=== PATIENT | male | born 1940 | race Caucasian/White ===

== ENCOUNTER 2019-09-01 21:08 | Emergency (ER) | payer OTHER ==
[2019-09-01] MEDS ORDERED: NA CHLORIDE 0.9% 1,000 ML ONE (22:19)
[2019-09-01 22:41] LABS: Absolute Lymphocytes (CBC) 0.9 K/uL (0.7-4.9); Basophils % 0.3 % (0-1.3); Hematocrit 33.4 % (39.6-49.0); Lymphocytes % 6.7 % (15.3-44.8); MPV 9.4 fL (7.6-11.3); RBC Red Blood Cell Count 3.69 M/uL (4.33-5.43)
[2019-09-01] MEDS ORDERED: FENTANYL CITR 100 MCG/2 ML ONE (22:45)
[2019-09-01 23:02] LABS: Albumin 2.6 g/dL (3.4-5.0); Bilirubin Direct 0.2 mg/dL (0-0.2); Bilirubin Total 0.3 mg/dL (0.2-1.0); Potassium 4.7 mmol/L (3.5-5.1); Protein, Total 6.4 g/dL (6.4-8.2)
[2019-09-02] MEDS ORDERED: NA CHLORIDE 0.9% 1,000 ML ONE (00:28)
--- NOTE | 2019-09-02 01:12 | EDPHYS ---
Physician Documentation [facility] Name: Evin Saba Age: 79 yrs Sex: Male : 1940 Arrival Date: 09/01/2019 Time: 21:09 Bed 5 Private MD: ED Physician Volodymyr Fernandez HPI: 09/01 22:36 This 79 yrs old Male presents to ER via Wheelchair with complaints of pm1 Diarrhea. 22:36 The patient presents to the emergency department with diarrhea, 4-5 times per day. pm1 Onset: The symptoms/episode began/occurred 3 day(s) ago. Possible causes: unknown. The symptoms are aggravated by nothing. The symptoms are alleviated by nothing. Associated signs and symptoms: Pertinent positives: abdominal pain, suprapubic area, Pertinent negatives: dysuria, fever. Historical: - Allergies: 21:42 No Known Allergies; rv - PMHx: 21:42 Hypertension; Diabetes - NIDDM; rv - PSHx: 21:42 cardiac stents; rv - Immunization history:: Adult Immunizations up to date, Flu vaccine is up to date. - Social history:: Smoking status: Patient/guardian denies using tobacco, the patient reports quitting approximately 10 years ago. - Ebola Screening: : No symptoms or risks identified at this time. ROS: 22:36 Constitutional: Negative for fever, chills, and weight loss, Eyes: Negative for injury, pm1 pain, redness, and discharge, ENT: Negative for injury, pain, and discharge, Neck: Negative for injury, pain, and swelling, Cardiovascular: Negative for chest pain, palpitations, and edema, Respiratory: Negative for shortness of breath, cough, wheezing, and pleuritic chest pain. 22:36 Back: Negative for injury and pain, : Negative for injury, bleeding, discharge, and swelling, MS/Extremity: Negative for injury and deformity, Skin: Negative for injury, rash, and discoloration, Neuro: Negative for headache, weakness, numbness, tingling, and seizure. 22:36 Abdomen/GI: Positive for abdominal pain, diarrhea, of the suprapubic area, Negative for nausea, vomiting, constipation. Exam: 22:36 Constitutional: This is a well developed, well nourished patient who is awake, alert, pm1 and in no acute distress. Head/Face: Normocephalic, atraumatic. Neck: Trachea midline, no thyromegaly or masses palpated, and no cervical lymphadenopathy. Supple, full range of motion without nuchal rigidity, or vertebral point tenderness. No Meningismus. Chest/axilla: Normal chest wall appearance and motion. Nontender with no deformity. No lesions are appreciated. Cardiovascular: Regular rate and rhythm with a normal S1 and S2. No gallops, murmurs, or rubs. Normal PMI, no JVD. No pulse deficits. Respiratory: Lungs have equal breath sounds bilaterally, clear to auscultation and percussion. No rales, rhonchi or wheezes noted. No increased work of breathing, no retractions or nasal flaring. 22:36 Back: No spinal tenderness. No costovertebral tenderness. Full range of motion. Skin: Warm, dry with normal turgor. Normal color with no rashes, no lesions, and no evidence of cellulitis. 22:36 Abdomen/GI: Inspection: abdomen appears normal, Bowel sounds: normal, Palpation: soft, mild abdominal tenderness, in the suprapubic area, mass, is not appreciated, rebound tenderness, is not appreciated. 22:36 Musculoskeletal/extremity: Extremities: all appear grossly normal, with no appreciated pain with palpation, ROM: no acute changes, Circulation is intact in all extremities. Vital Signs: 21:42 BP 135 / 42; Pulse 74; Resp 17; Temp 98.2; Pulse Ox 97% ; Weight 108.86 kg; Height 5 rv ft. 10 in. (177.80 cm); 22:30 BP 137 / 51; Pulse 63; Resp 18; Pulse Ox 97% on R/A; ea 23:18 BP 134 / 46; Pulse 66; Resp 18; Pulse Ox 97% on R/A; ea 09/02 00:05 BP 138 / 55; Pulse 62; Pulse Ox 100% on R/A; ak1 00:10 BP 149 / 61; Pulse 69; Pulse Ox 100% on R/A; ak1 00:16 BP 120 / 44 Supine; Pulse 62; Pulse Ox 95% ; ak1 01:15 BP 141 / 57; Pulse 63; Resp 18; Pulse Ox 100% on R/A; Pain 0/10; lp1 09/01 21:42 Body Mass Index 34.44 (108.86 kg, 177.80 cm) rv MDM: 09/01 22:03 Patient medically screened. pm1 22:04 Data reviewed: vital signs. Data interpreted: Pulse oximetry: on room air is 97 %. pm1 Interpretation: normal. 09/02 00:26 Counseling: I had a detailed discussion with the patient and/or guardian regarding: the pm1 historical points, exam findings, and any diagnostic results supporting the discharge/admit diagnosis, lab results, radiology results, the need for outpatient follow up, to return to the emergency department if symptoms worsen or persist or if there are any questions or concerns that arise at home. 00:26 Special discussion: I discussed with the patient the need to follow-up with the pm1 PCP/specialist for the noted incidental finding on X-ray/CT scanning. adrenal adenoma and recommendations by radiologist. 00:26 ED course: Offered admission to the patient for dehydration but patient prefers to go pm1 home. Patient feels better post IV infusion. Will give additional bolus of fluid for 2 liters total infused. Patient is not vomiting. 09/01 22:12 Order name: Basic Metabolic Panel; Complete Time: 23:17 pm1 09/01 22:12 Order name: CBC with Diff; Complete Time: 22:53 pm1 09/01 22:12 Order name: Creatinine for Radiology; Complete Time: 22:53 pm1 09/01 22:12 Order name: Hepatic Function; Complete Time: 23:17 pm1 09/01 22:12 Order name: Lipase; Complete Time: 23:17 pm1 09/01 22:12 Order name: IV Saline Lock; Complete Time: 22:28 pm1 09/01 22:12 Order name: Labs collected and sent; Complete Time: 22:34 pm1 09/01 22:12 Order name: CT Abd/Pelvis - IV Contrast Only pm1 Administered Medications: 09/01 22:28 Drug: NS 0.9% 1000 ml Route: IV; Rate: 1000 ml; Site: right antecubital; ea 23:34 Follow up: Response: No adverse reaction; IV Status: Completed infusion; IV Intake: ea 1000ml 22:47 Drug: fentaNYL (PF) 25 mcg Route: IVP; Site: right antecubital; ea 23:33 Follow up: Response: No adverse reaction; Pain is decreased ea 09/02 00:30 Drug: NS 0.9% 1000 ml Route: IV; Rate: 1000 ml; Site: right antecubital; ak1 01:21 Follow up: IV Status: Completed infusion; IV Intake: 1000ml lp1 Disposition: 03:43 Co-signature as Attending Physician, Volodymyr Fernandez MD I agree with the assessment and tw4 plan of care. Disposition: 09/02/19 01:12 Discharged to Home. Impression: Diarrhea, unspecified, Dehydration. - Condition is Stable. - Discharge Instructions: Food Choices to Help Relieve Diarrhea, Adult, Dehydration, Elderly, Diarrhea, Adult, Viral Gastroenteritis, Adult, Rehydration, Elderly. - Prescriptions for Bentyl 20 mg Oral Tablet - take 1 tablet by ORAL route every 6 hours As needed; 20 tablet. - Medication Reconciliation Form, Thank You Letter, Antibiotic Education, Prescription Opioid Use form. - Follow up: Emergency Department; When: As needed; Reason: Worsening of condition. Follow up: Private Physician; When: 2 - 3 days; Reason: Recheck today's complaints, Continuance of care, Re-evaluation by your physician. - Problem is new. - Symptoms have improved. Signatures: Dispatcher [employer] EDMS Heydi Wagner RN RN lp1 Aida Perdomo RN RN ak1 Sam Gallegos, JAVA SECURITY ARCHITECT JAVA SECURITY ARCHITECT pm1 Shi Sanchez, RN Volodymyr Chun ea, MD MD tw4 Jaxon Hull RN RN rv Corrections: (The following items were deleted from the chart) 01:12 01:12 09/02/2019 01:12 Discharged to Home. Impression: Diarrhea, unspecified. Condition pm1 is Stable. Forms are Medication Reconciliation Form, Thank You Letter, Antibiotic Education, Prescription Opioid Use. Follow up: Emergency Department; When: As needed; Reason: Worsening of condition. Follow up: Private Physician; When: 2 - 3 days; Reason: Recheck today's complaints, Continuance of care, Re-evaluation by your physician. Problem is new. Symptoms have improved. pm1 01:21 01:12 09/02/2019 01:12 Discharged to Home. Impression: Diarrhea, unspecified; lp1 Dehydration. Condition is Stable. Discharge Instructions: Food Choices to Help Relieve Diarrhea, Adult, Diarrhea, Adult, Viral Gastroenteritis, Adult, Dehydration, Elderly, Rehydration, Elderly. Prescriptions for Bentyl 20 mg Oral Tablet - take 1 tablet by ORAL route every 6 hours As needed; 20 tablet. and Forms are Medication Reconciliation Form, Thank You Letter, Antibiotic Education, Prescription Opioid Use. Follow up: Emergency Department; When: As needed; Reason: Worsening of condition. Follow up: Private Physician; When: 2 - 3 days; Reason: Recheck today's complaints, Continuance of care, Re-evaluation by your physician. Problem is new. Symptoms have improved. pm1
--- NOTE | 2019-09-02 01:12 | ER ---
Nurse's Notes [facility] Name: Evin Saba Age: 79 yrs Sex: Male : 1940 Arrival Date: 09/01/2019 Time: 21:09 Bed 5 Private MD: Diagnosis: Diarrhea, unspecified;Dehydration Presentation: 09/01 21:39 Presenting complaint: Patient states: lbm for three days, having 4-5 bouts per day. rv feeling week. still able to eat and drink without nausea and vomiting. denies any fever. no new prescription aside from getting a flu shot before the LBM started. Transition of care: patient was not received from another setting of care. Onset of symptoms was August 30, 2019 at 08:00. Risk Assessment: Do you want to hurt yourself or someone else? Patient reports no desire to harm self or others. Initial Sepsis Screen: Does the patient meet any 2 criteria? No. Patient's initial sepsis screen is negative. Does the patient have a suspected source of infection? No. Patient's initial sepsis screen is negative. Care prior to arrival: None. 21:39 Method Of Arrival: Wheelchair rv 21:39 Acuity: FELICIA 3 rv Historical: - Allergies: 21:42 No Known Allergies; rv - PMHx: 21:42 Hypertension; Diabetes - NIDDM; rv - PSHx: 21:42 cardiac stents; rv - Immunization history:: Adult Immunizations up to date, Flu vaccine is up to date. - Social history:: Smoking status: Patient/guardian denies using tobacco, the patient reports quitting approximately 10 years ago. - Ebola Screening: : No symptoms or risks identified at this time. Screenin:57 Abuse screen: Denies threats or abuse. Nutritional screening: No deficits noted. ea Tuberculosis screening: No symptoms or risk factors identified. Fall Risk None identified. Assessment: 22:40 Reassessment: bedside commode placed for pt to use for stool sample. ak1 22:56 General: Appears uncomfortable, Behavior is calm, cooperative, appropriate for age. ea Pain: Complains of pain in abdomen. Neuro: Level of Consciousness is awake, alert, obeys commands, Oriented to person, place, time, situation. Cardiovascular: Patient's skin is warm and dry. Respiratory: Airway is patent Respiratory effort is even, unlabored, Respiratory pattern is regular, symmetrical. GI: Abdomen is non-distended. Derm: Skin is dry, Skin is pale, Skin temperature is warm. 22:59 Reassessment: Patient and/or family updated on plan of care and expected duration. Pain ea level reassessed. Patient is alert, oriented x 3, equal unlabored respirations, skin warm/dry/pink. Pt taken to CT. 23:03 Reassessment: pt taken to CT. ak1 23:12 Reassessment: Patient and/or family updated on plan of care and expected duration. Pain ea level reassessed. Patient is alert, oriented x 3, equal unlabored respirations, skin warm/dry/pink. Pt returned from CT. 23:35 Reassessment: Patient and/or family updated on plan of care and expected duration. Pain ea level reassessed. Patient is alert, oriented x 3, equal unlabored respirations, skin warm/dry/pink. Provider at bedside updating pt on plan of care. Vital Signs: 21:42 BP 135 / 42; Pulse 74; Resp 17; Temp 98.2; Pulse Ox 97% ; Weight 108.86 kg; Height 5 rv ft. 10 in. (177.80 cm); 22:30 BP 137 / 51; Pulse 63; Resp 18; Pulse Ox 97% on R/A; ea 23:18 BP 134 / 46; Pulse 66; Resp 18; Pulse Ox 97% on R/A; ea 09/02 00:05 BP 138 / 55; Pulse 62; Pulse Ox 100% on R/A; ak1 00:10 BP 149 / 61; Pulse 69; Pulse Ox 100% on R/A; ak1 00:16 BP 120 / 44 Supine; Pulse 62; Pulse Ox 95% ; ak1 01:15 BP 141 / 57; Pulse 63; Resp 18; Pulse Ox 100% on R/A; Pain 0/10; lp1 09/01 21:42 Body Mass Index 34.44 (108.86 kg, 177.80 cm) rv ED Course: 09/01 21:09 Patient arrived in ED. ag3 21:40 Triage completed. rv 21:53 Sam Gallegos NP is PHCP. pm1 21:53 Volodymyr Fernandez MD is Attending Physician. pm1 21:57 Aida Perdomo, ESTER is Primary Nurse. ak1 22:18 Radiology exam delayed due to lab results not completed at this time. 2 22:27 Inserted saline lock: 20 gauge in right antecubital area, using aseptic technique. ea Blood collected. 22:57 Patient has correct armband on for positive identification. Bed in low position. Call ea light in reach. Side rails up X2. Adult w/ patient. 22:57 Arm band placed on right wrist. Patient placed in an exam room, on a stretcher, on ea pulse oximetry. 23:13 CT completed. Patient tolerated procedure well. Patient moved back from CT. 2 23:17 CT Abd/Pelvis - IV Contrast Only In Process Unspecified. EDTX 09/02 01:21 No provider procedures requiring assistance completed. IV discontinued, No lp1 redness/swelling at site. Pressure dressing applied. Administered Medications: 09/01 22:28 Drug: NS 0.9% 1000 ml Route: IV; Rate: 1000 ml; Site: right antecubital; ea 23:34 Follow up: Response: No adverse reaction; IV Status: Completed infusion; IV Intake: ea 1000ml 22:47 Drug: fentaNYL (PF) 25 mcg Route: IVP; Site: right antecubital; ea 23:33 Follow up: Response: No adverse reaction; Pain is decreased ea 09/02 00:30 Drug: NS 0.9% 1000 ml Route: IV; Rate: 1000 ml; Site: right antecubital; ak1 01:21 Follow up: IV Status: Completed infusion; IV Intake: 1000ml lp1 Intake: 09/01 23:34 IV: 1000ml; Total: 1000ml. ea 09/02 01:21 IV: 1000ml; Total: 2000ml. lp1 Outcome: 00:17 Condition: improved ak1 01:12 Discharge ordered by . pm1 01:21 Discharged to home via wheelchair, with family. lp1 01:21 Discharge instructions given to patient, Instructed on discharge instructions, follow up and referral plans. medication usage, Demonstrated understanding of instructions, follow-up care, medications, Prescriptions given X 1. 01:21 Patient left the ED. lp1 Signatures: Dispatcher [employer] EDTX Heydi Wagner RN RN lp1 Aida Perdomo RN RN ak1 Sam Gallegos, CONSULTANTS INTERN CONSULTANTS INTERN pm1 Tanisha Onofre 2 Shi Sanchez RN RN Jaxon Escamilla, RN RN navneet Sal, Jody ag3
[2019-09-02 01:28] VITALS: TEMP 98.2
[2019-09-02 01:34] VITALS: BP 141/57; O2SAT 100
--- NOTE | 2019-09-02 10:44 | RAD REPORT ---
EXAM DESCRIPTION: CT abdomen and pelvis with IV contrast CLINICAL HISTORY: 79-year-old male with abdominal pain, diarrhea and weakness TECHNIQUE: Axial CT imaging of the abdomen and pelvis was performed following the administration of intravenous contrast.. Sagittal and coronal reconstructed images were then performed. The CT stud y is performed according to ALARA (as low as reasonably achievable) or ALARA/IMAGE GENTLY, with autom atic adjustment of mA and/or kV according to patient size. Performed on: 09/01/2019 at 11:09 PM. COMPARISON: No prior studies were available for comparison. FINDINGS: Lung bases: The lung bases are clear. There is minimal bibasilar atelectasis and/or fibros is. Liver: The liver is normal in size and configuration. No focal hepatic abnormalities are identified. Liver attenuation is within normal limits. Spleen: The spleen is normal is size, configuration and attenuation. Gallbladder and bile duct: The gallbladder is surgically absent. There is no biliary ductal dilatat ion. Pancreas: The pancreas is grossly normal in size and configuration. Adrenal Glands: There is a 1.9 x 1.3 cm low density mass arising from the right adrenal gland measuri ng approximately 35 Hounsfield units. This likely represents an adrenal adenoma. The left adrenal gla nd is normal in size and configuration. Kidneys: The kidneys are normal in size and configuration. There is no evidence of hydronephrosis. Th ere is no evidence of nephrolithiasis. No definite solid or cystic renal mass lesions are identified. Stomach: The stomach is grossly normal. There is no definite hiatal hernia. Bowel: There is bowel wall thickening along the ascending colon as well as portions of the sigmoid co humberto. There is mild infiltration of the pericolonic fat adjacent to the ascending colon. Findings sugg est underlying colitis which may be infectious, inflammatory or ischemic in etiology. Appendix: There is no CT evidence of acute appendicitis. Free air: There is no evidence of free air. Free fluid: There is no evidence of free fluid. Vasculature: The aorta is normal in contour and demonstrates extensive atherosclerotic calcification. There are atherosclerotic calcifications along the common iliac arteries and major aortic branch ves sels. The aorta measures approximately 2.6 cm in maximum dimension. The inferior vena cava is grossly unremarkable. Lymphadenopathy: No pathologic lymphadenopathy is identified. Bladder: The bladder is moderately well distended and smooth in contour. Reproductive: The prostate gland is grossly within normal limits. Bones: There are remote postsurgical changes of the lumbar spine consistent with posterior decompress ion and fusion at L2-L3. A dorsal column stimulator is present as well. There are degenerative change s throughout the thoracolumbar spine. Left hip arthroplasty is present. Soft tissues: No focal soft tissue abnormalities are identified. IMPRESSION: 1. Bowel wall thickening along the ascending colon as well as portions of the sigmoid co humberto with associated pericolonic inflammation suggesting underlying colitis which may be infectious, i nflammatory or ischemic in etiology. 2. Remote cholecystectomy. 3. Small, low-density right adrenal mass likely representing an adrenal adenoma. Recommend one-year f ollow-up adrenal washout CT. If stable greater than or equal to one year, no further follow-up imagin g recommended. 4. Extensive atherosclerotic calcification along the abdominal aorta and major branch vessels. The ao rta measures approximately 2.6 cm in maximum dimension. Recommend follow-up imaging every five years. 5. Prior posterior fusion of L2-L3. Electronically signed by: Na Cook DO 09/01/2019 11:44 PM BROWNING PROCESSOR Due to temporary technical issues with the PACS/Fluency reporting system, reports are being signed by the in house radiologist as a courtesy to ensure prompt reporting. The interpreting radiologist is f ully responsible for the content of the report.
== END 2019-09-02 01:21 | disposition home or self-care (01) ==
LOC: ER 21:08
DX: E86.0 Dehydration (principal); I10 Essential (primary) hypertension
CPT/HCPCS: 96361; 85025; 80048; 36415; 80076; 83690; 74177; 96374; 99284; Q9967; J3010; J7030 ×2

== ENCOUNTER 2021-11-06 13:18 | Emergency (ER) | payer OTHER ==
[2021-11-06] MEDS ORDERED: TRAMADOL HCL 50 MG TAB ONE (16:02)
--- NOTE | 2021-11-06 17:21 | RAD REPORT ---
EXAM DESCRIPTION: US - Extremity Venous Uni Ltd - 11/06/2021 4:22 pm CLINICAL HISTORY: PAIN COMPARISON: None. TECHNIQUE: Real-time sonographic evaluation of the left lower extremity deep venous system was perfo rmed. FINDINGS: Normal compressibility, flow augmentation, phasic flow and spontaneous flow are identified in the left lower extremity common femoral, superficial femoral, and popliteal veins. Left posterior tibial vein was more difficult to visualize. No thrombus was confirmed. No intraluminal filling defe cts seen. IMPRESSION: No DVT in the left lower extremity identifiable.
--- NOTE | 2021-11-06 17:23 | RAD REPORT ---
EXAM DESCRIPTION: RAD - Hip Left 2 View - 11/06/2021 4:42 pm CLINICAL HISTORY: PAINhistory of replacement x2 COMPARISON: No comparisons FINDINGS: AP and frogleg views of the left hip were obtained. Film technique was not optimal. A revision left total hip prosthesis is in place. Bony remodeling is seen near the tip of the implant along the lateral cortical margin of the femur. Intertrochanteric region is osteopenic. No acute bon e process identifiable. Lucent changes are present along the proximal aspect of the shaft. Femoral co mponent loosening cannot be excluded as a possible source for pain. No acute acetabular finding. The left hemipelvis as imaged is unremarkable. SI joint degenerative changes are present. No soft tissue abnormality. IMPRESSION: Revision total hip prosthesis present on the left. No fracture or acute finding. Loosening of the femoral component cannot be excluded as source for pain.
--- NOTE | 2021-11-06 17:25 | RAD REPORT ---
EXAM DESCRIPTION: RAD - Femur Left - 11/06/2021 4:42 pm CLINICAL HISTORY: PAIN COMPARISON: None. FINDINGS: Two images were submitted from midshaft femur to the knee joint. Proximal femur is evaluat ed in a separate left hip report. Tip of the femoral component is identified. Focal sclerotic changes in the distal femoral metaphysis could be enchondroma or bone infarct. No acute cortical or medullar y process identifiable. Linear metallic surgical device is present in the distal shaft of the femur. No joint effusions seen. Degenerative changes in the knee joint are minimal. No pathologic bone proce ss. Dense arterial tree calcifications are present. No air or foreign body in the soft tissues. IMPRESSION: Imaging of the distal left femur shows chronic findings as detailed above. No acute proc ess. Proximal femur detailed as part of the left hip report.
--- NOTE | 2021-11-06 17:33 | ER ---
Nurse's Notes [facility] Name: Evin Saba Age: 81 yrs Sex: Male : 1940 Arrival Date: 11/06/2021 Time: 13:23 Bed 11 Private MD: Diagnosis: Sciatica, left side Presentation: 11/06 13:31 Chief complaint: Patient states: pain starts in lower back and radiates into hip and vg1 down to left ankle. EMS states: Left hip pain x 5 days; states no injuries. 13:31 Method Of Arrival: EMS: [facility] vg1 15:33 Coronavirus screen: Vaccine status: Patient reports receiving the 2nd dose of the covid vg1 vaccine. Client denies travel out of the [place] in the last 14 days. Ebola Screen: Patient negative for fever greater than or equal to 101.5 degrees Fahrenheit, and additional compatible Ebola Virus Disease symptoms. Initial Sepsis Screen: Does the patient meet any 2 criteria? No. Patient's initial sepsis screen is negative. Does the patient have a suspected source of infection? Yes:. Risk Assessment: Do you want to hurt yourself or someone else? Patient reports no desire to harm self or others. Onset of symptoms was November 01, 2021. 15:33 Acuity: FELICIA 3 vg1 Triage Assessment: 15:47 General: Appears uncomfortable, Behavior is cooperative. Pain: Complains of pain in vg1 left leg Pain currently is 10 out of 10 on a pain scale. Historical: - Allergies: 15:38 PENICILLINS; vg1 - Home Meds: 15:38 Albuterol Inhl [Active]; vg1 15:49 atorvastatin oral [Active]; Bisacodyl Oral [Active]; cyanocobalamin (vitamin B-12) oral vg1 [Active]; Docusate Sodium Oral [Active]; Hydralazine Oral [Active]; Lisinopril Oral [Active]; Insulin: Novolin N Sub-Q [Active]; Metoprolol Tartrate Oral [Active]; Aspirin Oral [Active]; Omeprazole Oral [Active]; - PMHx: 15:38 Diabetes - NIDDM; Hypertension; vg1 - PSHx: 15:38 Hip; Left; Back; vg1 - Immunization history:: Client reports receiving the 2nd dose of the Covid vaccine. - Social history:: Smoking status: Patient denies any tobacco usage or history of. Screenin:41 Abuse screen: Denies threats or abuse. Nutritional screening: No deficits noted. ll1 Tuberculosis screening: No symptoms or risk factors identified. Fall Risk Ambulatory Aid- Crutches/Cane/Walker (15 pts). Gait- Weak (10 pts.). Total Maki Fall Scale indicates Low Risk Score (25-44 pts). Fall prevention measures have been instituted. Side Rails Up X 2 Frequent Obs/Assesments occuring As available Patient and Family Educated on Fall Prevention Program and strategies. Assessment: 16:45 Reassessment: No changes from previously documented assessment. Patient and/or family ll1 updated on plan of care and expected duration. Pain level reassessed. Patient is alert, oriented x 3, equal unlabored respirations, skin warm/dry/pink. 17:40 Reassessment: No changes from previously documented assessment. Patient and/or family ll1 updated on plan of care and expected duration. Pain level reassessed. Patient is alert, oriented x 3, equal unlabored respirations, skin warm/dry/pink. Vital Signs: 15:33 Pulse 66; Resp 20; Temp 97.6; Pulse Ox 100% ; Weight 92.99 kg; Height 5 ft. 11 in. vg1 (180.34 cm); Pain 10/10; 15:47 BP 205 / 78; vg1 15:33 Body Mass Index 28.59 (92.99 kg, 180.34 cm) vg1 ED Course: 13:23 Patient arrived in ED. ds1 15:38 Triage completed. vg1 15:41 Liss Marquez FNP-C is [facility]. kb 15:41 Jose Manuel Falcon MD is Attending Physician. kb 15:42 Jameson Barton RN is Primary Nurse. ll1 15:42 Arm band placed on Patient placed in an exam room, on a stretcher. ll1 16:22 US Extremity Venous Unilateral Ltd In Process Unspecified. EDMS 16:42 Hip Left 2 View XRAY In Process Unspecified. EDMS 16:42 Femur Left XRAY In Process Unspecified. EDMS 17:41 Patient has correct armband on for positive identification. Bed in low position. Call ll1 light in reach. Side rails up X 1. Cardiac monitoring not applicable on this patient. 17:41 No provider procedures requiring assistance completed. Patient did not have IV access ll1 during this emergency room visit. Administered Medications: 16:04 Drug: traMADol 50 mg Route: PO; ll1 17:41 Follow up: Response: No adverse reaction ll1 Outcome: 17:33 Discharge ordered by MD. lanier 17:41 Discharged to home via wheelchair. ll1 17:41 Condition: stable 17:41 Discharge instructions given to patient, family, Instructed on discharge instructions, follow up and referral plans. no drinking with medication, no driving heavy equipment, medication usage, Demonstrated understanding of instructions, follow-up care, medications, Prescriptions given X 2. 17:42 Patient left the ED. 1 Signatures: Dispatcher [employer] EDLiss Rice, JACKI LÓPEZ-Colleen Sanchez ds1 Tanisha Wahl, RN RN vg1 Jameson Barton RN RN ll1 Corrections: (The following items were deleted from the chart) 15:47 13:31 Chief complaint: EMS states: Left hip pain x 5 days; states no injuries. vg1 vg1
--- NOTE | 2021-11-06 17:33 | EDPHYS ---
Physician Documentation [facility] Name: Evin Saba Age: 81 yrs Sex: Male : 1940 Arrival Date: 11/06/2021 Time: 13:23 Bed 11 Private MD: ED Physician Jose Manuel Falcon HPI: 11/06 17:30 This 81 yrs old Male presents to ER via EMS with complaints of Hip Pain. kb 17:30 The patient presents with pain that is acute, and tenderness. The symptoms are located kb in the left low back. 17:31 The pain radiates to the left leg. The problem was sustained from unknown cause. Onset: kb The symptoms/episode began/occurred 5 day(s) ago. Modifying factors: The patient symptoms are alleviated by nothing, the patient symptoms are aggravated by supine position. Associated signs and symptoms: The patient has no apparent associated signs or symptoms. Severity of symptoms: At their worst the symptoms were moderate, in the emergency department the symptoms are unchanged. The patient has not experienced similar symptoms in the past. The patient has not recently seen a physician. Pt reports pain to left low back that radiates down buttock and left leg. States he woke up with the pain 5 days ago. Denies injury or trauma. Pain worse when laying flat. Historical: - Allergies: 15:38 PENICILLINS; vg1 - Home Meds: 15:38 Albuterol Inhl [Active]; vg1 15:49 atorvastatin oral [Active]; Bisacodyl Oral [Active]; cyanocobalamin (vitamin B-12) oral vg1 [Active]; Docusate Sodium Oral [Active]; Hydralazine Oral [Active]; Lisinopril Oral [Active]; Insulin: Novolin N Sub-Q [Active]; Metoprolol Tartrate Oral [Active]; Aspirin Oral [Active]; Omeprazole Oral [Active]; - PMHx: 15:38 Diabetes - NIDDM; Hypertension; vg1 - PSHx: 15:38 Hip; Left; Back; vg1 - Immunization history:: Client reports receiving the 2nd dose of the Covid vaccine. - Social history:: Smoking status: Patient denies any tobacco usage or history of. ROS: 17:29 Constitutional: Negative for fever, chills, and weight loss. kb 17:29 Back: Positive for pain at rest, pain with movement. 17:29 MS/extremity: Positive for pain, tenderness, of the left gluteus cassandra and left low back and left leg. 17:29 All other systems are negative. Exam: 17:28 Constitutional: This is a well developed, well nourished patient who is awake, alert, kb and in no acute distress. Head/Face: Normocephalic, atraumatic. ENT: Moist Mucous membranes Respiratory: Respirations even and unlabored. No increased work of breathing. Talking in full sentences Skin: Warm, dry with normal turgor. Normal color. Neuro: Awake and alert, GCS 15, oriented to person, place, time, and situation. Moves all extremities. Normal gait. Psych: Awake, alert, with orientation to person, place and time. Behavior, mood, and affect are within normal limits. 17:28 Back: pain, that is mild, that is moderate, of the left low back, vertebral tenderness, is not appreciated. 17:28 Musculoskeletal/extremity: Extremities: grossly normal except: noted in the left gluteus cassandra: pain, tenderness, ROM: limited active range of motion due to pain, Circulation is intact in all extremities. Sensation intact. Weight bearing: able to fully bear weight. Vital Signs: 15:33 Pulse 66; Resp 20; Temp 97.6; Pulse Ox 100% ; Weight 92.99 kg; Height 5 ft. 11 in. vg1 (180.34 cm); Pain 10/10; 15:47 BP 205 / 78; vg1 15:33 Body Mass Index 28.59 (92.99 kg, 180.34 cm) vg1 MDM: 15:41 Patient medically screened. kb 17:28 Data reviewed: vital signs, nurses notes. Data interpreted: Pulse oximetry: on room air kb is 100 %. Interpretation: normal. Counseling: I had a detailed discussion with the patient and/or guardian regarding: the historical points, exam findings, and any diagnostic results supporting the discharge/admit diagnosis, radiology results, the need for outpatient follow up, a family practitioner, to return to the emergency department if symptoms worsen or persist or if there are any questions or concerns that arise at home. 11/06 15:43 Order name: Hip Left 2 View XRAY; Complete Time: 17:27 kb 11/06 15:48 Order name: Femur Left XRAY; Complete Time: 17:27 vg1 11/06 15:48 Order name: US Extremity Venous Unilateral Ltd; Complete Time: 17:21 vg1 Administered Medications: 16:04 Drug: traMADol 50 mg Route: PO; ll1 17:41 Follow up: Response: No adverse reaction ll1 Disposition: 11/07 10:35 Co-signature as Attending Physician, Jose Manuel Falcon MD I agree with the assessment and henny plan of care. Disposition Summary: 11/06/21 17:33 Discharge Ordered Location: Home kb Condition: Stable kb Diagnosis - Sciatica, left side kb Followup: kb - With: Emergency Department - When: As needed - Reason: Worsening of condition Followup: kb - With: Private Physician - When: 2 - 3 days - Reason: Recheck today's complaints, Continuance of care, Re-evaluation by your physician Discharge Instructions: - Discharge Summary Sheet kb - Sciatica, [id number] kb - Back Exercises, [id number] kb Forms: - Medication Reconciliation Form kb - Thank You Letter kb - Antibiotic Education kb - Prescription Opioid Use kb Prescriptions: - Cyclobenzaprine 10 mg Oral Tablet - take 1 tablet by ORAL route every 8 hours As needed; 21 tablet; Refills: 0, kb Product Selection Permitted - Diclofenac Sodium 75 mg Oral tablet,delayed release (DR/EC) - take 1 tablet by ORAL route 2 times per day As needed; 30 tablet; Refills: 0, kb Product Selection Permitted Signatures: Dispatcher [employer] Liss Andino, MUKUNDC MARIBEL-Jose Manuel Daley MD MD cha Garcia, Victoria, RN RN vg1 Jameson Barton RN RN 1
[2021-11-06 17:46] VITALS: TEMP 97.6; O2SAT 100
[2021-11-06 17:47] VITALS: BP 205/78
== END 2021-11-06 17:42 | disposition home or self-care (01) ==
LOC: ER 13:18
DX: M54.32 Sciatica, left side (principal); I10 Essential (primary) hypertension; E11.9 Type 2 diabetes mellitus without complications
CPT/HCPCS: 93971; 99284

== ENCOUNTER 2023-05-04 23:14 | Inpatient (IN) | payer OTHER ==
--- OUTSIDE RECORDS SUMMARY | 2023-05-04 23:18 | XMS REPORT | Continuity of Care Document ---
:1940 Author Organization [facility] t Address [address] [place] [address] [address] [place] [address] Care Team Providers Name Role Phone BEDF[place], [facility] Zachary [facility] Primary Care Physician Unavailable Papa Boyd MD Attending Clinician Doctor Unassigned, [place] Attending Clinician Unavailable TAMMY TAFOYA Attending Clinician Unavailable PAPA BOYD Attending Clinician Unavailable Jass Ya MD Attending Clinician JASS YA Attending Clinician Unavailable JASS YA Attending Clinician Unavailable Payers Payer Name Policy Type Policy Number Effective Date Expiration Date S ource Problems Condition Condition Condition Status Onset Resolution Last Treating Co mments Source Name Details Category Date Date Treatment Clinician Date Mixed Mixed Disease Active Univers hyperlipid hyperlipid 1-10 it y of emia emia 00:00: [address] Primary Primary Disease Active Univers hypertensi hypertensi 1-10 it y of on on 00:00: [address] No known No known Disease Unive rs active active ity of problems problems [facility] Allergies, Adverse Reactions, Alerts Allergy Allergy Status Severity Reaction(s) Onset Inactive Treating Comm ents Source Name Type Date Date Clinician PENICILL Drug Active Rash Univers INS Class 8-18 ity of 00:00: [address] Penicill Propensi Active Rash Univer s ins ty to 8-18 ity of adverse 00:00: [place] reaction Medical [facility] Social History Social Habit Start Date Stop Date Quantity Comments Source Exposure to 2022-10-07 2022-10-17 Not sure University SARS-CoV-2 00:00:00 13:15:00 [place] [facility] (event) Branch Alcohol intake 2022-10-17 2022-10-17 Current drinker of Un iversity of 00:00:00 00:00:00 alcohol (finding) [facility] edical [place] Alcohol Comment 2017-05-28 2017-05-28 occasional Universit y of 00:00:00 00:00:00 [facility] History of 1988-05-28 2016-01-27 Cigarette Smoker Universi ty of tobacco use 00:00:00 00:00:00 [facility] Sex [birth year] Universit y of 00:00:00 00:00:00 [facility] Smoking Status Start Date Stop Date Source Ex-smoker 2022-10-17 00:00:00 2022-10-17 00:00:00 Universi ty of [facility] Medications Ordered Filled Start Stop Current Ordering Indication Dosage Frequency Signature Comments Components Source Medication Medication Date Date Medication? Clinician (SIG) Name Name ticagrelor 2022- No 90mg Take 90 mg Univers 90 mg 1-10 01-10 by mouth 2 ity of tablet 14:21: 00:00 (two) [place] 22 :00 times Medical daily. Branch ticagrelor 2022- No 90mg Take 90 mg Univers 90 mg 1-10 01-10 by mouth 2 ity of tablet 14:21: 00:00 (two) [place] 22 :00 times Medical daily. Branch ticagrelor 2022- No 90mg Take 90 mg Univers 90 mg 1-10 01-10 by mouth 2 ity of tablet 14:21: 00:00 (two) [place] 22 :00 times Medical daily. Branch ticagrelor 2022- No 90mg Take 90 mg Univers 90 mg 1-10 01-10 by mouth 2 ity of tablet 14:21: 00:00 (two) [place] 22 :00 times Medical daily. Branch amLODIPine Yes 10mg Take 2 Unive rs 5 mg tablet 1-10 tablets by it y of 00:00: mouth in [place] 00 the Medical morning. Branch nitroglycer Yes [id number] .4mg Place 1 Univers in 0.4 mg 1-10 tablet ity of sublingual 00:00: under the [place] tablet 00 tongue Medical every 5 Branch (five) minutes as needed for Chest pain. amLODIPine 2023-0 Yes 10mg Take 2 Unive rs 5 mg tablet 1-10 tablets by it y of 00:00: mouth in [place] 00 the Medical morning. Branch nitroglycer 2023-[id number] 1 Univers in 0.4 mg 1-10 tablet ity of sublingual 00:00: under the [place] tablet 00 tongue Medical every 5 Branch (five) minutes as needed for Chest pain. amLODIPine 3-0 Yes 10mg Take 2 Unive rs 5 mg tablet 1-10 tablets by it y of 00:00: mouth in [place] 00 the Medical morning. Branch nitroglycer 2023-[id number] 1 Univers in 0.4 mg 1-10 tablet ity of sublingual 00:00: under the [place] tablet 00 tongue Medical every 5 Branch (five) minutes as needed for Chest pain. amLODIPine 3-0 Yes 10mg Take 2 Unive rs 5 mg tablet 1-10 tablets by it y of 00:00: mouth in [place] the Medical morning. Branch nitroglycer 3-[id number] 1 Univers in 0.4 mg 1-10 tablet ity of sublingual 00:00: under the [place] tablet 00 tongue Medical every 5 Branch (five) minutes as needed for Chest pain. insulin NPH 2022-0 2022- No 25U inject 25 Univers 100 unit/mL 1-03 01-03 Units ity of injection 10:52: 00:00 under the [place] 44 :00 skin every Medical morning Branch and evening. insulin NPH 2022-0 2022- No 25U inject 25 Univers 100 unit/mL -03 01-03 Units ity of injection 10:52: 00:00 under the [place] :00 skin every Medical morning Branch and evening. MULTIVITAMI 2022-0 Yes 1{tbl} Take 1 Un raina N ORAL 1-03 tablet by ity of 09:19: mouth [place] 47 daily. Medical Branch MULTIVITAMI 2022-0 Yes 1{tbl} Take 1 Un [facility] N ORAL 1-03 tablet by ity of 09:19: mouth [place] 47 daily. Medical Branch MULTIVITAMI 2023-0 Yes 1{tbl} Take 1 Un [facility] N ORAL 1-03 tablet by ity of 09:19: mouth [place] 47 daily. Medical Branch MULTIVITAMI 2022-0 Yes 1{tbl} Take 1 [facility] [place] N ORAL 1-03 tablet by ity of 09:19: mouth [place] 47 daily. Medical Branch MULTIVITAMI 2022-0 Yes 1{tbl} Take 1 [facility] [place] N ORAL 1-03 tablet by ity of 09:19: mouth [place] 47 daily. Medical Branch MULTIVITAMI 0 Yes 1{tbl} Take 1 [facility] [place] N ORAL 1-03 tablet by ity of 09:19: mouth [place] 47 daily. Medical Branch lisinopril 0 Yes 20mg Take 20 mg U nivers 20 mg 1-03 by mouth 2 ity of tablet 09:19: (two) [place] 08 times Medical daily. Branch omeprazole 0 Yes 20mg Take 20 mg U nivers 20 mg 1-03 by mouth ity of capsule 09:19: daily. [place] 08 Medical Branch Carboxymeth [address] Un ra[place] ylcellulose 1-03 each eye. ity of -Glycern 09:19: [place] 0.5-0.9 % 08 Medical Drop Branch Bisacodyl 5 0 Yes 1{tbl} Take 1 Un raina mg Tab 1-03 tablet by ity of 09:19: mouth 2 [place] 08 (two) Medical times Branch daily. docusate 0 Yes 100mg Take 100 Univ ers 100 mg 1-03 mg by ity of capsule 09:19: mouth 2 [place] 08 (two) Medical times Branch daily. Cholecalcif 0 Yes 1{capsu Take 1 U nivers reymundo, 1-03 le} capsule by ity of Vitamin D3, 09:19: mouth [place] 10 mcg (400 08 daily. Medica l unit) Branch capsule hydralAZINE 0 Yes 10mg Take 10 mg Univers 10 mg 1-03 by mouth 2 ity of tablet 09:19: (two) [place] 08 times Medical daily. Branch Indication s: 2 tabs in AM and 1 tab in PM lisinopril 2022-0 Yes 20mg Take 20 mg U nivers 20 mg 1-03 by mouth 2 ity of tablet 09:19: (two) [place] 08 times Medical daily. Branch omeprazole 3-0 Yes 20mg Take 20 mg U nivers 20 mg 1-03 by mouth ity of capsule 09:19: daily. [place] [address] Medical Branch Carboxymeth 3-[address] in Un ra[place] ylcellulose 1-03 each eye. ity of -Glycern 09:19: [place] 0.5-0.9 % 08 Medical Drop Branch Bisacodyl 5 2022-0 Yes 1{tbl} Take 1 Un [place] mg Tab 1-03 tablet by ity of 09:19: mouth 2 [place] 08 (two) Medical times Branch daily. docusate 2023-0 Yes 100mg Take 100 Univ ers 100 mg 1-03 mg by ity of capsule 09:19: mouth 2 [place] [address] (two) Medical times Branch daily. Cholecalcif 2023-0 Yes 1{capsu Take 1 U nivers reymundo, 1-03 le} capsule by ity of Vitamin D3, 09:19: mouth [place] 10 mcg (400 08 daily. Medica l unit) Branch capsule hydralAZINE 2022-0 Yes 10mg Take 10 mg Univers 10 mg 1-03 by mouth 2 ity of tablet 09:19: (two) [place] 08 times Medical daily. Branch Indication s: 2 tabs in AM and 1 tab in PM lisinopril 3-0 Yes 20mg Take 20 mg U nivers 20 mg 1-03 by mouth 2 ity of tablet 09:19: (two) [place] 08 times Medical daily. Branch omeprazole 3-0 Yes 20mg Take 20 mg U nivers 20 mg 1-03 by mouth ity of capsule 09:19: daily. [place] [address] Medical Branch Carboxymeth 2023-[address] in Un [place] ylcellulose 1-03 each eye. ity of -Glycern 09:19: [place] 0.5-0.9 % 08 Medical Drop Branch Bisacodyl 5 2022-0 Yes 1{tbl} Take 1 Un raina mg Tab 1-03 tablet by ity of 09:19: mouth 2 [place] 08 (two) Medical times Branch daily. docusate 2023-0 Yes 100mg Take 100 Univ ers 100 mg 1-03 mg by ity of capsule 09:19: mouth 2 [place] 08 (two) Medical times Branch daily. Cholecalcif 2023-0 Yes 1{capsu Take 1 U nivers reymundo, 1-03 le} capsule by ity of Vitamin D3, 09:19: mouth [place] 10 mcg (400 08 daily. Medica l unit) Branch capsule hydralAZINE 3-0 Yes 10mg Take 10 mg Univers 10 mg 1-03 by mouth 2 ity of tablet 09:19: (two) [place] 08 times Medical daily. Branch Indication s: 2 tabs in AM and 1 tab in PM lisinopril 2023-0 Yes 20mg Take 20 mg U nivers 20 mg 1-03 by mouth 2 ity of tablet 09:19: (two) [place] 08 times Medical daily. Branch omeprazole 3-0 Yes 20mg Take 20 mg U nivers 20 mg 1-03 by mouth ity of capsule 09:19: daily. [place] 08 Medical Branch Carboxymeth 3-[address] in Un [place] ylcellulose 1-03 each eye. ity of -Glycern 09:19: [place] 0.5-0.9 % Medical Drop Branch Bisacodyl 5 2022-0 Yes 1{tbl} Take 1 Un [place] mg Tab 1-03 tablet by ity of 09:19: mouth 2 [place] 08 (two) Medical times Branch daily. docusate 3-0 Yes 100mg Take 100 Univ ers 100 mg 1-03 mg by ity of capsule 09:19: mouth 2 [place] 08 (two) Medical times Branch daily. Cholecalcif 3-0 Yes 1{capsu Take 1 U nivers reymundo, 1-03 le} capsule by ity of Vitamin D3, 09:19: mouth [place] 10 mcg (400 08 daily. Medica l unit) Branch capsule hydralAZINE 3-0 Yes 10mg Take 10 mg Univers 10 mg 1-03 by mouth 2 ity of tablet 09:19: (two) [place] 08 times Medical daily. Branch Indication s: 2 tabs in AM and 1 tab in PM lisinopril 2023-0 Yes 20mg Take 20 mg U nivers 20 mg 1-03 by mouth 2 ity of tablet 09:19: (two) [place] 08 times Medical daily. Branch omeprazole 2023-0 Yes 20mg Take 20 mg U nivers 20 mg 1-03 by mouth ity of capsule 09:19: daily. [place] 08 Medical Branch Carboxymeth 2023-[address] in [place] ylcellulose 1-03 each eye. ity of -Glycern 09:19: [place] 0.5-0.9 % 08 Medical Drop Branch Bisacodyl 5 2022-0 Yes 1{tbl} Take 1 Un [place] mg Tab 1-03 tablet by ity of 09:19: mouth 2 [place] 08 (two) Medical times Branch daily. docusate 2023-0 Yes 100mg Take 100 Univ ers 100 mg 1-03 mg by ity of capsule 09:19: mouth 2 [place] 08 (two) Medical times Branch daily. Cholecalcif 3-0 Yes 1{capsu Take 1 U nivers reymundo, 1-03 le} capsule by ity of Vitamin D3, 09:19: mouth [place] 10 mcg (400 08 daily. Medica l unit) Branch capsule hydralAZINE 3-0 Yes 10mg Take 10 mg Univers 10 mg 1-03 by mouth 2 ity of tablet 09:19: (two) [place] 08 times Medical daily. Branch Indication s: 2 tabs in AM and 1 tab in PM lisinopril 3-0 Yes 20mg Take 20 mg U nivers 20 mg 1-03 by mouth 2 ity of tablet 09:19: (two) [place] 08 times Medical daily. Branch omeprazole 3-0 Yes 20mg Take 20 mg U nivers 20 mg 1-03 by mouth ity of capsule 09:19: daily. [place] [address] Medical Branch Carboxymeth 3-[address] in [place] ylcellulose 1-03 each eye. ity of -Glycern 09:19: [place] 0.5-0.9 % 08 Medical Drop Branch Bisacodyl 5 2022-0 Yes 1{tbl} Take 1 Un [place] mg Tab 1-03 tablet by ity of 09:19: mouth 2 [place] 08 (two) Medical times Branch daily. docusate 2023-0 Yes 100mg Take 100 Univ ers 100 mg 1-03 mg by ity of capsule 09:19: mouth 2 [place] 08 (two) Medical times Branch daily. Cholecalcif 2023-0 Yes 1{capsu Take 1 U nivers reymundo, 1-03 le} capsule by ity of Vitamin D3, 09:19: mouth [place] 10 mcg (400 08 daily. Medica l unit) Branch capsule hydralAZINE 2023-0 Yes 10mg Take 10 mg Univers 10 mg 1-03 by mouth 2 ity of tablet 09:19: (two) [place] 08 times Medical daily. Branch Indication s: 2 tabs in AM and 1 tab in PM gabapentin 3-0 Yes [id number] 600mg Take 2 Univers 300 mg 1-03 [id number] capsules ity of capsule 00:00: by mouth [place] 00 at Medical bedtime. Branch gabapentin 3-0 Yes [id number] 600mg Take 2 Univers 300 mg 1-03 [id number] capsules ity of capsule 00:00: by mouth [place] 00 at Medical bedtime. Branch gabapentin 3-0 Yes [id number] 600mg Take 2 Univers 300 mg - [id number] capsules ity of capsule 00:00: by mouth [place] 00 at Medical bedtime. Branch gabapentin 3-0 Yes [id number] 600mg Take 2 Univers 300 mg 1- [id number] capsules ity of capsule 00:00: by mouth [place] 00 at Medical bedtime. Branch gabapentin 3-0 Yes [id number] 600mg Take 2 Univers 300 mg 1- [id number] capsules ity of capsule 00:00: by mouth [place] 00 at Medical bedtime. Branch gabapentin 3-0 Yes [id number] 600mg Take 2 Univers 300 mg - [id number] capsules ity of capsule 00:00: by mouth [place] 00 at Medical bedtime. Branch amLODIPine 2021-2022- No 10mg 10 mg. Univ ers 10 mg 10-17 ity of tablet 00:00: 00:00 [place] 00 :00 Medical Branch amLODIPine 2021-2022- No 10mg 10 mg. Univ ers 10 mg 10-17 ity of tablet 00:00: 00:00 [place] 00 :00 Medical Branch amLODIPine 2021-1 3- No 10mg 10 mg. Univ ers 10 mg 10-17 ity of tablet 00:00: 00:00 [place] 00 :00 Medical Branch amLODIPine 2021-3- No 10mg 10 mg. Univ ers 10 mg 10-17 ity of tablet 00:00: 00:00 [place] 00 :00 Medical Branch HYDROmorpho 2021- Yes TAKE 1 Univ ers ne 4 mg 2-21 TABLET BY ity of tablet 00:00: MOUTH ONCE [place] 00 DAILY FOR Medical 28 DAYS Branch HYDROmorpho 2021-10 Yes TAKE 1 Univ ers ne 4 mg 2-21 TABLET BY ity of tablet 00:00: MOUTH ONCE [place] 00 DAILY FOR Medical 28 DAYS Branch HYDROmorpho 2021-10 Yes TAKE 1 Univ ers ne 4 mg 2-21 TABLET BY ity of tablet 00:00: MOUTH ONCE [place] 00 DAILY FOR Medical 28 DAYS Branch HYDROmorpho 2021-10 Yes TAKE 1 Univ ers ne 4 mg 2-21 TABLET BY ity of tablet 00:00: MOUTH ONCE [place] 00 DAILY FOR Medical 28 DAYS Branch HYDROmorpho 2021-10 Yes TAKE 1 Univ ers ne 4 mg 2-21 TABLET BY ity of tablet 00:00: MOUTH ONCE [place] 00 DAILY FOR Medical 28 DAYS Branch HYDROmorpho 2021-10 Yes TAKE 1 Univ ers ne 4 mg 2-21 TABLET BY ity of tablet 00:00: MOUTH ONCE [place] 00 DAILY FOR Medical 28 DAYS Branch metFORMIN 2021-10 Yes 1000mg 1,000 mg. U nivers 1,000 mg 1-28 ity of tablet 00:00: [place] [facility] metFORMIN 2021-10 Yes 1000mg 1,000 mg. U nivers 1,000 mg 1-28 ity of tablet 00:00: [place] [facility] metFORMIN 2021-10 Yes 1000mg 1,000 mg. U nivers 1,000 mg 1-28 ity of tablet 00:00: [place] [facility] metFORMIN 2021-10 Yes 1000mg 1,000 mg. U nivers 1,000 mg 1-28 ity of tablet 00:00: [place] [facility] metFORMIN 2021-10 Yes 1000mg 1,000 mg. U nivers 1,000 mg 1-28 ity of tablet 00:00: [place] [facility] metFORMIN 2021-10 Yes 1000mg 1,000 mg. U nivers 1,000 mg 1-28 ity of tablet 00:00: [place] [facility] atorvastati 2021-10 Yes 10mg 10 mg. Univ ers n 20 mg 0-17 ity of tablet 00:00: [place] [facility] metoprolol 2021-10 Yes 25mg 25 mg. Unive rs succinate 0-17 ity of XL 25 mg 24 00:00: [place] hr tablet 00 [facility] terbinafine 2021-10 Yes 250mg 250 mg. Un raina HCL 250 mg 0-17 ity of tablet 00:00: [place] [facility] Branch atorvastati 2021-10 Yes 10mg 10 mg. Univ ers n 20 mg 0-17 ity of tablet 00:00: Medical Branch metoprolol 2021-10 Yes 25mg 25 mg. Unive rs succinate 0-17 ity of XL 25 mg 24 00:00: [place] hr tablet 00 Medical Branch terbinafine 2021-10 Yes 250mg 250 mg. Un raina HCL 250 mg 0-17 ity of tablet 00:00: [place] [facility] Branch atorvastati 2021-10 Yes 10mg 10 mg. Univ ers n 20 mg 0-17 ity of tablet 00:00: [place] [facility] Branch metoprolol 2021-10 Yes 25mg 25 mg. Unive rs succinate 0-17 ity of XL 25 mg 24 00:00: [place] hr tablet 00 Medical Branch terbinafine 2021-10 Yes 250mg 250 mg. Un raina HCL 250 mg 0-17 ity of tablet 00:00: [place] [facility] Branch atorvastati 2021-10 Yes 10mg 10 mg. Univ ers n 20 mg 0-17 ity of tablet 00:00: [place] [facility] metoprolol 2021-10 Yes 25mg 25 mg. Unive rs succinate 0-17 ity of XL 25 mg 24 00:00: [place] hr tablet 00 Medical Branch terbinafine 2021-10 Yes 250mg 250 mg. Un raina HCL 250 mg 0-17 ity of tablet 00:00: Medical Branch atorvastati 2021-10 Yes 10mg 10 mg. Univ ers n 20 mg 0-17 ity of tablet 00:00: [place] [facility] metoprolol 2021-10 Yes 25mg 25 mg. Unive rs succinate 0-17 ity of XL 25 mg 24 00:00: [place] hr tablet 00 Medical Branch terbinafine 2021-10 Yes 250mg 250 mg. Un raina HCL 250 mg 0-17 ity of tablet 00:00: [place] [facility] atorvastati 2021-10 Yes 10mg 10 mg. Univ ers n 20 mg 0-17 ity of tablet 00:00: Medical Branch metoprolol 2021-10 Yes 25mg 25 mg. Unive rs succinate 0-17 ity of XL 25 mg 24 00:00: [place] hr tablet 00 Medical Branch terbinafine 2021-10 Yes 250mg 250 mg. Un raina HCL 250 mg 0-17 ity of tablet 00:00: [place] 00 Medical Branch gabapentin 2021-10- No 300mg 300 mg. Un ra[place] 300 mg 0-17 10-10 ity of capsule 00:00: 00:00 [place] 00 :00 Medical Branch gabapentin 2021-2022- No 300mg 300 mg. Un [place] 300 mg 017 10-10 ity of capsule 00:00: 00:00 [place] 00 :00 Medical Branch albuterol-i Yes INHALE 1 [place] pratropium 7-01 PUFF MOUTH ity of 20-100 00:00: FOUR TIMES [place] mcg/actuati 00 A DAY Medi [place] on inhaler NEEDED Branch REPLACES COMBIVENT INHALER. USE ONLY ONE INHALATION PER DOSE albuterol-i Yes INHALE 1 [place] pratropium 7-01 PUFF MOUTH ity of 20-100 00:00: FOUR TIMES [place] mcg/actuati 00 A DAY Medi [place] on inhaler NEEDED Branch REPLACES COMBIVENT INHALER. USE ONLY ONE INHALATION PER DOSE albuterol-i Yes INHALE 1 [place] pratropium 7-01 PUFF MOUTH ity of 20-100 00:00: FOUR TIMES [place] mcg/actuati 00 A DAY Medi [place] on inhaler NEEDED Branch REPLACES COMBIVENT INHALER. USE ONLY ONE INHALATION PER DOSE albuterol-i Yes INHALE 1 [place] pratropium 7-01 PUFF MOUTH ity of 20-100 00:00: FOUR TIMES [place] mcg/actuati 00 A DAY Medi [place] on inhaler NEEDED Branch REPLACES COMBIVENT INHALER. USE ONLY ONE INHALATION PER DOSE albuterol-i Yes INHALE 1 [place] pratropium 7-01 PUFF MOUTH ity of 20-100 00:00: FOUR TIMES [place] mcg/actuati 00 A DAY Medi [place] on inhaler NEEDED Branch REPLACES COMBIVENT INHALER. USE ONLY ONE INHALATION PER DOSE albuterol-i 2022-0 Yes INHALE 1 [place] pratropium 7-01 PUFF MOUTH ity of 20-100 00:00: FOUR TIMES [place] mcg/actuati 00 A DAY Medi [place] on inhaler NEEDED Branch REPLACES COMBIVENT INHALER. USE ONLY ONE INHALATION PER DOSE aspirin 81 Yes 81mg Take 81 mg U nivers mg chewable 8-21 by mouth ity of tablet 12:36: daily. Medical Branch vitamin 2017 Yes 100ug Take 100 Unive rs B-12 8-21 mcg by ity of (VITAMIN 12:36: mouth [place] B-12) 100 02 daily. Medical mcg tablet Branch metoprolol 2017 Yes 25mg Take 25 mg U nivers tartrate 25 8-21 by mouth ity of mg tablet 12:36: daily. [place] Medical Branch aspirin 81 Yes 81mg Take 81 mg U nivers mg chewable 8-21 by mouth ity of tablet 12:36: daily. Medical Branch Bisacodyl 5 Yes 1{tbl} Take 1 [place] mg Tab 8-21 tablet by ity of 12:36: mouth 2 [place] (two) Medical times Branch daily. aspirin 81 Yes 81mg Take 81 mg U nivers mg chewable 8-21 by mouth ity of tablet 12:36: daily. Medical Branch docusate Yes 100mg Take 100 Univ ers 100 mg 8-21 mg by ity of capsule 12:36: mouth 2 02 (two) Medical times Branch daily. vitamin 2017 Yes 100ug Take 100 Unive rs B-12 8-21 mcg by ity of (VITAMIN 12:36: mouth [place] B-12) 100 02 daily. Medical mcg tablet Branch metoprolol Yes 25mg Take 25 mg U nivers tartrate 25 8-21 by mouth ity of mg tablet 12:36: daily. Medical Branch MULTIVITAMI Yes 1{tbl} Take 1 Un [place] N ORAL 8-21 tablet by ity of 12:36: mouth [place] 02 daily. Medical Branch Cholecalcif Yes 1{capsu Take 1 U nivers reymundo, 8-21 le} capsule by ity of Vitamin D3, 12:36: mouth [place] (VITAMIN 02 daily. Medical D3) 400 Branch unit capsule aspirin 81 Yes 81mg Take 81 mg U nivers mg chewable 8-21 by mouth ity of tablet 12:36: daily. [place] [facility] Branch vitamin 2017 Yes 100ug Take 100 Unive rs B-12 8-21 mcg by ity of (VITAMIN 12:36: mouth [place] B-12) 100 02 daily. Medical mcg tablet Branch vitamin Yes 100ug Take 100 Unive rs B-12 8-21 mcg by ity of (VITAMIN 12:36: mouth [place] B-12) 100 02 daily. Medical mcg tablet Branch metoprolol Yes 25mg Take 25 mg U nivers tartrate 25 8-21 by mouth ity of mg tablet 12:36: daily. [place] [facility] Branch metoprolol Yes 25mg Take 25 mg U nivers tartrate 25 8-21 by mouth ity of mg tablet 12:36: daily. [place] [address] Medical Branch aspirin 81 Yes 81mg Take 81 mg U nivers mg chewable 8-21 by mouth ity of tablet 12:36: daily. [place] [address] Medical Branch ticagrelor Yes 90mg Take 90 mg U nivers 90 mg 8-21 by mouth 2 ity of tablet 12:36: (two) 02 times Medical daily. Branch vitamin Yes 100ug Take 100 Unive rs B-12 8-21 mcg by ity of (VITAMIN 12:36: mouth [place] B-12) 100 02 daily. Medical mcg tablet Branch metoprolol Yes 25mg Take 25 mg U nivers tartrate 25 8-21 by mouth ity of mg tablet 12:36: daily. [place] [address] Medical Branch hydralAZINE Yes 10mg Take 10 mg Univers 10 mg 8-21 by mouth 2 ity of tablet 12:36: (two) [place] 02 times Medical daily. Branch Indication s: 2 tabs in AM and 1 tab in PM lisinopril Yes 20mg Take 20 mg U nivers 20 mg 8-21 by mouth 2 ity of tablet 12:36: (two) [place] 02 times Medical daily. Branch omeprazole Yes 20mg Take 20 mg U nivers 20 mg 8-21 by mouth ity of capsule 12:36: daily. [place] [address] Medical Branch insulin NPH Yes 25U inject 25 U nivers 100 unit/mL 8-21 Units ity of injection 12:36: under the [place] 02 skin every Medical morning Branch and evening. aspirin 81 Yes 81mg Take 81 mg U nivers mg chewable 8-21 by mouth ity of tablet 12:36: daily. [place] [address] Medical Branch vitamin Yes 100ug Take 100 Unive rs B-12 8-21 mcg by ity of (VITAMIN 12:36: mouth [place] B-12) 100 02 daily. Medical mcg tablet Branch metoprolol Yes 25mg Take 25 mg U nivers tartrate 25 8-21 by mouth ity of mg tablet 12:36: daily. [place] [address] Medical Branch aspirin 81 Yes 81mg Take 81 mg U nivers mg chewable 8-21 by mouth ity of tablet 12:36: daily. [place] [address] Medical [place] vitamin Yes 100ug Take 100 Unive rs B-12 8-21 mcg by ity of (VITAMIN 12:36: mouth [place] B-12) 100 02 daily. Medical mcg tablet Branch metoprolol Yes 25mg Take 25 mg U nivers tartrate 25 8-21 by mouth ity of mg tablet 12:36: daily. [address] Immunizations Ordered Filled Immunization Date Status Comments [facility] Immunization Name Name Influenza High Dose 2022-09-05 Completed Unive rsity of 00:00:00 [facility] Influenza High Dose 2022-09-05 Completed Unive rsity of 00:00:00 [facility] Influenza High Dose 2022-09-05 Completed Unive rsity of 00:00:00 [facility] Influenza High Dose 2022-09-05 Completed Unive rsity of 00:00:00 [facility] Influenza High Dose 2022-09-05 Completed Unive rsity of 00:00:00 [facility] Influenza High Dose 2022-09-05 Completed Unive rsity of 00:00:00 [facility] Vital Signs Vital Name Observation Time Observation Value Comments Source Systolic blood 2022-10-17 20:10:00 160 mm[Hg] Univer sity of pressure [facility] Diastolic blood 2022-10-17 20:10:00 52 mm[Hg] Unive rsity of pressure [facility] Heart rate 2022-10-17 20:10:00 55 /min Universi ty of [facility] Respiratory rate 2022-10-17 20:02:00 22 /min Univ ersity of [facility] Body height 2022-10-17 20:02:00 180.3 cm [facility] [place] [facility] Body weight 2022-10-17 20:02:00 83.87 kg [facility] ty of [place] [facility] [place] BMI 2022-10-17 20:02:00 25.79 kg/m2 [facility]i ty of [facility] Oxygen saturation in 2022-10-17 20:02:00 97 /min University of Arterial blood by [facility] Pulse oximetry Branch Systolic blood 2022-10-10 15:19:00 165 mm[Hg] Univer sity of pressure [facility] Diastolic blood 2022-10-10 15:19:00 54 mm[Hg] Unive rsity of pressure [facility] Heart rate 2022-10-10 15:19:00 57 /min [facility] [place] [facility] [place] Body height 2022-10-10 15:19:00 180.3 cm [facility] [place] [facility] [place] Body weight 2022-10-10 15:19:00 84.823 kg [facility] [place] [facility] [place] BMI 2022-10-10 15:19:00 26.08 kg/m2 [facility]i ty of [facility] Oxygen saturation in 2022-10-10 15:19:00 94 /min University of Arterial blood by [facility] Pulse oximetry Branch Procedures Procedure Date / Time Performing Clinician Source Performed AUTHORIZATION FOR 2023-01-18 05:01:00 Doctor Unassigned, No [facility] Medical Branch ASSIGNMENT OF BENEFITS 2022-10-10 14:57:31 Doctor Unassigned, No [facility] Medical Branch Encounters Start End Encounter Admission Attending Care Care Encounter Source Date/Time Date/Time Type Type Clinicians Facility Department ID 2022-03-30 Outpatient [facility], [facility] [id number] Common 10:37:02 [place] 2023-01-19 2023-01-19 Telephone Oliver, [facility] [id number] Univers 00:00:00 00:00:00 Papa [place] [id number] [id number] [phone] Or dical NAL 059 [facility] 2023-01-18 2023-01-18 Orders Doctor JESSIE [id number] Univers 00:00:00 00:00:00 Only Unassigned, HARSH [id number] ity of [place] [facility] [id number] John as [phone] [facility] 009 [place] 2022-11-06 2022-11-06 [facility] [id number] Univers 13:42:20 23:59:00 PAPA lebrony o [facility] 2022-10-17 2022-10-17 [facility] [id number] Univers 13:40:00 14:29:53 PAPA lebrony o [facility] 2022-10-17 2022-10-17 [facility] [id number] Univers 13:40:00 14:29:53 Visit Papa [place] [id number] [id number] [phone] Or dical NAL 9 [facility] 2022-10-10 2022-10-10 Office [place] [facility] [id number] Univers 09:20:00 10:58:19 Visit Jass [facility] [id number] ity of [place] [id number] John as MILTON?BLEA [id number] Or dical KNEY 092 [facility] OFFICE [facility] 2022-10-10 2022-10-10 Outpatient R JASS YA [facility] [id number] Univers 09:20:00 10:58:19 JASS YA itadry [facility] 2022-10-10 2022-10-10 Orders Doctor JESSIE [id number] Univers 00:00:00 00:00:00 Only Unassigned, HARSH [id number] ity of [place] [facility] [id number] John as [phone] [address] Results This patient has no known results.
[2023-05-04] MEDS ORDERED: NA CHLORIDE 0.9% 1,000 ML ONE (23:33)
[2023-05-04 23:55] LABS: Absolute Lymphocytes (CBC) 0.9 K/uL (0.7-4.9); Hematocrit 30.4 % (39.6-49.0); MCV 90.7 fL (80-100); MPV 8.9 fL (7.6-11.3); RBC Red Blood Cell Count 3.36 M/uL (4.33-5.43)
[2023-05-05] LABS: Protime INR 1.15
[2023-05-05] LABS: Specific Gravity 1.016 (1.005-1.030); Urine Bacteria None Seen /HPF (<20); Urine Bilirubin NEGATIVE (Negative); Urine Blood Negative (Negative); Urine Clarity Clear (Clear); Urine Color Light-Yellow (Yellow); Urine Glucose NEGATIVE (Negative); Urine Protein 3+ (Negative); Urine RBC <5 /HPF (None Seen); Urine Urobilinogen Normal (Normal)
[2023-05-05 00:17] LABS: Albumin 2.6 g/dL (3.4-5.0); Bilirubin Total 0.4 mg/dL (0.2-1.0); Magnesium 1.3 mg/dL (1.6-2.4); Potassium 4.1 mEq/L (3.5-5.1); Protein, Total 6.3 g/dL (6.4-8.2); Troponin High Sensitivity 39.2 pg/mL (<58.9)
[2023-05-05] MEDS ORDERED: ACETAMINOPHEN 500 MG TAB ONE (01:02)
[2023-05-05] MEDS ORDERED: CEFEPIME 2 GM VIAL ONE (01:02)
[2023-05-05] MEDS ORDERED: NA CHLORIDE 0.9% 100 ML ONE (01:02)
--- NOTE | 2023-05-05 02:10 | ER ---
Nurse's Notes [facility] Name: Evin Saba Age: 82 yrs Sex: Male : 1940 Arrival Date: 05/04/2023 Time: 23:14 Bed 8 Private MD: Diagnosis: Hyperthermia;Altered mental status Presentation: 05/04 23:32 Chief complaint: EMS states: Pt was found unresponsive with an axillary temp of 105.8 vc1 with a BGL of 314. There ac went out and it was 95 degrees in the house. Oxygen was 82% on arrival and 96% once placed on non rebreather. Coronavirus screen: Vaccine status: Patient reports receiving the 2nd dose of the covid vaccine. 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 in the last 14 days. At this time, the client does not indicate any symptoms associated with coronavirus-19. Ebola Screen: Patient negative for fever greater than or equal to 101.5 degrees Fahrenheit, and additional compatible Ebola Virus Disease symptoms Patient denies exposure to infectious person. Patient denies travel to an Ebola-affected area in the 21 days before illness onset. No symptoms or risks identified at this time. Initial Sepsis Screen: Does the patient meet any 2 criteria? No. Patient's initial sepsis screen is negative. Does the patient have a suspected source of infection? No. Patient's initial sepsis screen is negative. Risk Assessment: Do you want to hurt yourself or someone else? Patient reports no desire to harm self or others. Onset of symptoms was May 04, 2023. 23:32 Method Of Arrival: EMS: [facility] vc1 23:32 Acuity: FELICIA 2 vc1 Triage Assessment: 23:36 General: Appears distressed, uncomfortable, ill, Behavior is cooperative. Pain: vc1 Complains of pain in back. EENT: No deficits noted. No signs and/or symptoms were reported regarding the EENT system. Neuro: Level of Consciousness is obeys commands, lethargic, Oriented to person, place. Cardiovascular: No deficits noted. Respiratory: Airway is patent Respiratory effort is even, unlabored, Respiratory pattern is regular, symmetrical. GI: No deficits noted. No signs and/or symptoms were reported involving the gastrointestinal system. : No deficits noted. No signs and/or symptoms were reported regarding the genitourinary system. Derm: Skin temperature is hot. Musculoskeletal: No deficits noted. No signs and/or symptoms reported regarding the musculoskeletal system. Historical: - Allergies: 23:36 PENICILLINS; vc1 - PMHx: 23:36 coronary atherosclerosis; Diabetes - NIDDM; Hypertension; vc1 - PSHx: 23:36 back; hip; Left; vc1 - Immunization history:: Client reports receiving the 2nd dose of the Covid vaccine. - Social history:: Smoking status: Patient denies any tobacco usage or history of. - Family history:: not pertinent. Screenin/29 00:48 [facility] ED Fall Risk Assessment (Adult) History of falling in the last 3 months, kd3 including since admission No falls in past 3 months (0 pts) Confusion or Disorientation Yes (5 pts) Intoxicated or Sedated No (0 pts) Impaired Gait No (0 pts) Mobility Assist Device Used No (0 pt) Altered Elimination No (0 pt) Score/Fall Risk Level 3 or more points = High Risk Maintained a safe environment, Hourly rounding (assess needs \T\ fall precautionary measures) done. Abuse screen: Denies threats or abuse. Denies injuries from another. Nutritional screening: No deficits noted. Tuberculosis screening: No symptoms or risk factors identified. Assessment: 00:47 General: Appears ill, Behavior is calm, cooperative. Pain: Denies pain. Neuro: Level of kd3 Consciousness is awake, obeys commands, lethargic. 02:23 General: Appears in no apparent distress. Behavior is calm, cooperative. Neuro: Level kd3 of Consciousness is awake, obeys commands, lethargic, Oriented to person, place. Respiratory: Airway is patent Trachea midline Respiratory effort is even, unlabored, Respiratory pattern is regular, symmetrical. GI: Abdomen is non-distended. Vital Signs: 05/04 23:32 BP 180 / 58; Pulse 84; Resp 22; Temp 102.8(Ca); Pulse Ox 96% on R/A; Weight 81.65 kg; vc1 05/05 00:47 BP 139 / 50; Pulse 68; Resp 19; Temp 99.6(Ca); Pulse Ox 93% on R/A; kd3 01:28 BP 142 / 48; Pulse 64; Resp 19 S; Temp 98.4(Ca); Pulse Ox 94% on R/A; kd3 02:03 BP 136 / 50; Pulse 65; Resp 19; Temp 97.5(Ca); Pulse Ox 97% on R/A; kd3 ED Course: 05/04 23:24 Patient arrived in ED. vc1 23:26 Jaret Cedillo MD is Attending Physician. rt 23:32 Citlaly Cabral RN is Primary Nurse. kd3 23:36 Triage completed. vc1 23:36 Arm band placed on right wrist. vc1 05/05 00:00 Chest Single View XRAY In Process Unspecified. EDMS 00:48 Basic Metabolic Panel Sent. kd3 00:48 Blood Culture Adult (2) Sent. kd3 01:21 CT Head Brain wo Cont In Process Unspecified. EDMS 02:10 Efrain Doyle MD is Hospitalizing Provider. rt 02:23 Patient has correct armband on for positive identification. Placed in gown. Provided kd3 Education on: . 06:03 No provider procedures requiring assistance completed. Patient admitted, IV remains in kd3 place. Administered Medications: 00:46 Drug: NS 0.9% IV 1000 ml Route: IV; Rate: 1 bolus; Site: left forearm; kd3 01:28 Follow up: IV Status: Completed infusion; IV Intake: 1000ml kd3 01:08 Drug: Acetaminophen PO 1000 mg Route: PO; kd3 01:08 Drug: Cefepime IVPB 2 grams Route: IVPB; Rate: 200 ml/hr; Infused Over: 30 mins; Site: kd3 left forearm; 02:24 Follow up: IV Status: Completed infusion kd3 Medication: 02:24 VIS not applicable for this client. kd3 Intake: 01:28 IV: 1000ml; Total: 1000ml. kd3 Output: 01:27 Urine: 600ml (Maurer); Total: 600ml. kd3 Outcome: 02:10 Decision to Hospitalize by Provider. rt 06:03 Admitted to Med/surg kd3 06:03 Condition: stable 06:03 Discharge instructions given to patient, Instructed on the need for admit. 06:03 Patient left the ED. kd3 Signatures: Dispatcher [employer] EDMS Citlaly Cabral RN RN kd3 Tatum Saunders RN RN vc1 Jaret Cedillo MD MD rt
--- NOTE | 2023-05-05 02:10 | EDPHYS ---
Physician Documentation [facility] Name: Evin Saba Age: 82 yrs Sex: Male : 1940 Arrival Date: 05/04/2023 Time: 23:14 Bed 8 Private MD: ED Physician Jaret Cedillo HPI: 05/05 02:03 This 82 yrs old Male presents to ER via EMS with complaints of Altered mental status. rt 02:03 Patient presents to the ED with an altered mental status. Patient was reportedly found rt completely unresponsive in a warm room under blankets. The patient's axillary temperature was 105 degrees by EMS. Oxygen saturation was about 82%. Patient was placed on a nonrebreather, started with cooling. Patient subsequently had significant improvement of the mental status. Denies other acute complaints at this time, symptoms are severe in severity, no other aggravating or alleviating factors.. Historical: - Allergies: 05/04 23:36 PENICILLINS; vc1 - PMHx: 23:36 coronary atherosclerosis; Diabetes - NIDDM; Hypertension; vc1 - PSHx: 23:36 back; hip; Left; vc1 - Immunization history:: Client reports receiving the 2nd dose of the Covid vaccine. - Social history:: Smoking status: Patient denies any tobacco usage or history of. - Family history:: not pertinent. ROS: 05/05 02:03 Constitutional: Negative for fever, chills, and weight loss, Cardiovascular: Negative rt for chest pain, palpitations, and edema, Respiratory: Negative for shortness of breath, cough, wheezing, and pleuritic chest pain, Abdomen/GI: Negative for abdominal pain, nausea, vomiting, diarrhea, and constipation, Skin: Negative for injury, rash, and discoloration, Psych: Negative for depression, anxiety, suicide ideation, homicidal ideation, and hallucinations. Neuro: Positive for altered mental status, loss of consciousness. Exam: 02:03 Constitutional: This is a well developed, well nourished patient who is awake, alert, rt and in no acute distress. Head/Face: Normocephalic, atraumatic. Neck: Trachea midline, no thyromegaly or masses palpated, and no cervical lymphadenopathy. Supple, full range of motion without nuchal rigidity, or vertebral point tenderness. No Meningismus. Chest/axilla: Normal chest wall appearance and motion. Nontender with no deformity. No lesions are appreciated. Cardiovascular: Regular rate and rhythm with a normal S1 and S2. No gallops, murmurs, or rubs. Normal PMI, no JVD. No pulse deficits. Respiratory: Lungs have equal breath sounds bilaterally, clear to auscultation and percussion. No rales, rhonchi or wheezes noted. No increased work of breathing, no retractions or nasal flaring. Abdomen/GI: Soft, non-tender, with normal bowel sounds. No distension or tympany. No guarding or rebound. No evidence of tenderness throughout. Skin: Warm, dry with normal turgor. Normal color with no rashes, no lesions, and no evidence of cellulitis. MS/ Extremity: Pulses equal, no cyanosis. Neurovascular intact. Full, normal range of motion. Neuro: Awake and alert, GCS 15, oriented to person, place, time, and situation. Cranial nerves II-XII grossly intact. Motor strength 5/5 in all extremities. Sensory grossly intact. Cerebellar exam normal. Normal gait. Psych: Awake, alert, with orientation to person, place and time. Behavior, mood, and affect are within normal limits. 02:03 ENT: Dry mucous member. 02:03 ECG was reviewed by the Attending Physician. rt Vital Signs: 05/04 23:32 BP 180 / 58; Pulse 84; Resp 22; Temp 102.8(Ca); Pulse Ox 96% on R/A; Weight 81.65 kg; vc1 05/05 00:47 BP 139 / 50; Pulse 68; Resp 19; Temp 99.6(Ca); Pulse Ox 93% on R/A; kd3 01:28 BP 142 / 48; Pulse 64; Resp 19 S; Temp 98.4(Ca); Pulse Ox 94% on R/A; kd3 02:03 BP 136 / 50; Pulse 65; Resp 19; Temp 97.5(Ca); Pulse Ox 97% on R/A; kd3 MDM: 05/04 23:26 Patient medically screened. rt 05/05 02:03 Differential Diagnosis Hyperthermia, heatstroke, CVA, sepsis. Data reviewed: vital rt signs, nurses notes, lab test result(s), EKG, radiologic studies. Consideration of Admission/Observation Patient was admitted/placed on observation. Management of patient was discussed with the following: Hospitalist: Agrees to. I considered the following discharge prescriptions or medication management in the emergency department Medications were administered in the Emergency Department. See MAR. Independent interpretation of the following test(s) in the Emergency Department CT Scan: My interpretation is No hemorrhage seen on my interpretation of CT scan and. Care significantly affected by the following chronic conditions: Diabetes. Counseling: I had a detailed discussion with the patient and/or guardian regarding: the historical points, exam findings, and any diagnostic results supporting the discharge/admit diagnosis, lab results, radiology results, the need for further work-up and treatment in the hospital. Response to treatment: the patient's symptoms have markedly improved after treatment. 05/04 23:28 Order name: Blood Culture Adult (2) rt 05/04 23:28 Order name: CBC with Diff; Complete Time: 00:04 rt 05/04 23:28 Order name: CMP; Complete Time: 00:31 rt 05/04 23:28 Order name: Lactate w/ 2H reflex if indic.; Complete Time: 00:31 05/04 23:28 Order name: Protime (+inr); Complete Time: 00:04 05/04 23:28 Order name: Ptt, Activated; Complete Time: 00:04 05/04 23:28 Order name: Urinalysis w/ reflexes; Complete Time: 00:04 rt 05/04 23:28 Order name: Basic Metabolic Panel rt 05/04 23:28 Order name: Magnesium; Complete Time: 00:31 05/04 23:28 Order name: NT PRO-BNP; Complete Time: 00:31 05/04 23:28 Order name: Troponin HS; Complete Time: 00:31 05/04 23:28 Order name: CPK; Complete Time: 00:31 rt 05/05 02:56 Order name: Urinalysis w/ reflexes EDMS 05/05 02:56 Order name: Magnesium EDMS 05/05 02:56 Order name: Urinalysis w/ reflexes EDMS 05/05 02:56 Order name: Basic Metabolic Panel EDMS 05/05 02:56 Order name: Basic Metabolic Panel EDMS 05/05 02:56 Order name: Basic Metabolic Panel EDMS 05/05 02:56 Order name: CBC with Automated Diff EDMS 05/05 02:56 Order name: CBC with Automated Diff EDMS 05/05 02:56 Order name: CBC with Automated Diff EDMS 05/04 23:28 Order name: Chest Single View XRAY rt 05/04 23:28 Order name: CT Head Brain wo Cont rt 05/04 23:28 Order name: EKG; Complete Time: 23:29 rt 05/05 02:55 Order name: 60g Consistent Carbohydrate (ADA 1800/2000) EDMS 05/04 23:28 Order name: Accucheck; Complete Time: 01:08 rt 05/04 23:28 Order name: Cardiac monitoring; Complete Time: 00:48 rt 05/04 23:28 Order name: EKG - Nurse/Tech; Complete Time: 00:48 rt 05/04 23:28 Order name: IV Saline Lock - Large Bore; Complete Time: 00:48 rt 05/04 23:28 Order name: Labs collected and sent; Complete Time: 00:48 rt 05/04 23:28 Order name: O2 Per Protocol; Complete Time: 00:48 rt 05/04 23:28 Order name: O2 Sat Monitoring; Complete Time: 00:48 rt 05/04 23:28 Order name: Vital Signs; Complete Time: 00:48 rt 05/04 23:28 Order name: IV Saline Lock; Complete Time: 00:24 rt EC:03 Rate is 72 beats/min. Rhythm is regular, Sinus Rhythm with Occasional PVCs. QRS [place] is rt Normal. [place] interval is normal. QRS interval is normal. QT interval is normal. No Q waves. Administered Medications: 00:46 Drug: NS 0.9% IV 1000 ml Route: IV; Rate: 1 bolus; Site: left forearm; kd3 01:28 Follow up: IV Status: Completed infusion; IV Intake: 1000ml kd3 01:08 Drug: Acetaminophen PO 1000 mg Route: PO; kd3 01:08 Drug: Cefepime IVPB 2 grams Route: IVPB; Rate: 200 ml/hr; Infused Over: 30 mins; Site: [facility] left forearm; 02:24 Follow up: IV Status: Completed infusion kd3 Disposition Summary: 05/05/23 02:10 Hospitalization Ordered Hospitalization Status: Inpatient Admission rt Provider: Efrain Doyle rt Condition: Fair rt Problem: new rt Symptoms: have improved rt Bed/Room Type: Standard rt Location: Telemetry/MedSurg (Inpatient)(05/05/23 04:16) vc1 Room Assignment: 230(05/05/23 04:16) vc1 Diagnosis - Hyperthermia rt - Altered mental status rt Forms: - Medication Reconciliation Form rt - SBAR form rt Critical care time excluding procedures: 02:09 Critical care time: Bedside Care: 30 minutes, Consultation: 5 minutes. Total time: 35 rt minutes Signatures: Dispatcher [employer] EDMS Glory Rod RN RN Citlaly Cabral RN RN kd3 Tatum Saunders RN RN vc1 Jaret Cedillo MD MD rt Corrections: (The following items were deleted from the chart) 02:19 02:10 Telemetry/MedSurg (observation) rt mw 02:19 02:10 rt 04:16 02:19 [facility] ER HOLD mw 1 04:16 02:19 ERHOLD- mw 1
--- NOTE | 2023-05-05 02:43 | P.HP ---
Certification for Inpatient Patient admitted to: Observation Patient will require the following post-hospital care: None Practitioner: I am a practitioner with admitting privileges, knowledge of patient current condition, hospital course, and medical plan of care. Services: Services provided to patient in accordance with Admission requirements found in Title 42 Section 412.3 of the Code of Federal Regulations Patient History Date of Service: 05/05/23 Reason for admission: heat exhaustion History of Present Illness: 82-year-old male with a past medical history of hypertension, diabetes presents to the emergency room via EMS for altered mental status. He was reportedly found under blankets in his room, hypothermic temperature 105, hypoxic O2 saturation 82%, patient was placed on a nonrebreather, and cooling blanket with significant improvement and changes in mental status. Plan to admit for heat exhaustion, acute kidney injury.laboratory evaluation acute kidney injury, BUN 32, creatinine 1.34, estimated GFR 53, blood glucose 255, hypocalcemia 7.8, hypomagnesia 1.3, elevated BNP 10/09/2000, UA unremarkable, CBC normocytic anemia 10.1, 30.4, mild left shift 85.5, CT of the head ordered,'s chest x-ray ordered. Review of Systems 10-point ROS is otherwise unremarkable Physical Examination - Physical Exam General: Alert, In no apparent distress, Oriented x3 HEENT: Atraumatic, Normocephalic, PERRLA Neck: Supple, 2+ carotid pulse no bruit Respiratory: Clear to auscultation bilaterally, Normal air movement Cardiovascular: No edema, Normal pulses, Regular rate/rhythm Capillary refill: <2 Seconds Gastrointestinal: Normal bowel sounds, Non-distended Musculoskeletal: No clubbing, No swelling Integumentary: No rashes, No breakdown Neurological: Normal speech, Normal strength at 5/5 x4 extr, Cranial nerves 3-12 intact - Studies Laboratory Data (last 24 hrs) 05/04/23 05/04/23 05/04/23 23:45 23:45 23:45 WBC 8.10 Hgb 10.1 L Hct 30.4 L Plt Count 138 L PT 12.6 H INR 1.15 APTT 33.6 Sodium 133 L Potassium 4.1 BUN 32 H Creatinine 1.34 H Glucose 255 H Magnesium 1.3 L Total Bilirubin 0.4 AST 15 ALT 19 Alkaline Phosphatase 55 Assessment and Plan - Plan Assessment and plan Metabolic encephalopathy versus delirium heat exhaustion acute kidney injury Hyperglycemia Hypocalcemia Hypomagnesia Normocytic anemia Essential hypertension Diabetes DVT prophylaxis Assessment and plan Metabolic encephalopathy vs delirium-likely related to heat exhaustion UA unremarkable, CT of the head ordered,'s chest x-ray ordered. Fall precautions heat exhaustion IV fluids, Tylenol for elevated temperature acute kidney injury laboratory evaluation acute kidney injury, BUN 32, creatinine 1.34, estimated GFR 53, IV fluids, Repeat kidney function labs in the a.m. Hypocalcemia Hypomagnesia Trend electrolytes replace as needed hypocalcemia 7.8, hypomagnesia 1.3 Normocytic anemia CBC normocytic anemia 10.1, 30.4, mild left shift 85.5, Essential hypertension Diabetes BG ACHS, SSI resume appop home meds Cardiac diet Full code DVT Lovenox Discharge Plan: Home Plan to discharge in: 24 Hours - Advance Directives Does patient have a Living Will: No Does patient have a Durable POA for Healthcare: No - Code Status/Comfort Care Code Status: Full Code Physician Review: Patient Assessed, Agree with Above Assessment and Plan Critical Care: No Time Spent Managing Pts Care (In Minutes): 50
[2023-05-05] MEDS ORDERED: ONDANSETRON 4 MG/2 ML VIAL IV PRN (02:53)
[2023-05-05] MEDS ORDERED: ACETAMINOPHEN 500 MG TAB PO PRN (02:53)
[2023-05-05] MEDS ORDERED: GLUCAGON 1 MG/VIAL IM PRN (03:00)
[2023-05-05] MEDS ORDERED: D50W 25 GM/50 ML SYRINGE IV PRN (03:00)
[2023-05-05 04:49] LABS: Potassium 4.3 mEq/L (3.5-5.1)
[2023-05-05 04:57] LABS: Absolute Lymphocytes (CBC) 2.3 K/uL (0.7-4.9); Hematocrit 31.5 % (39.6-49.0); Lymphocytes % 22.2 % (15.3-44.8); MCV 90.5 fL (80-100); MPV 9.5 fL (7.6-11.3); RBC Red Blood Cell Count 3.48 M/uL (4.33-5.43)
[2023-05-05 06:02] VITALS: BMI 24.0
[2023-05-05] MEDS: NA CHLORIDE 0.9% 1,000 ML IV SCH ×2 (06:27→13:00)
[2023-05-05] MEDS ORDERED: INSULIN LISPRO 100 UNIT/1 ML SQ SCH (07:30)
[2023-05-05] MEDS: INSULIN -REGULAR HUMAN 50 UNIT/0.5 ML ML SQ SCH ×4 (07:30→20:52)
[2023-05-05] MEDS: HEPARIN 5000 UNIT/ML 1 ML VIAL SQ SCH ×2 (08:38→16:23)
[2023-05-05] MEDS ORDERED: MAGNESIUM SULFATE 1 gm IVPB 1 GM/100 ML BAG IV ONE ×2 (09:00→16:00)
[2023-05-05] MEDS ORDERED: METHYLPREDNISOLONE 125 MG INJ IV ONE (13:15)
[2023-05-05] MEDS ORDERED: HYDRALAZINE HCL 20 MG/ML VIAL IV ONE (13:15)
[2023-05-05] MEDS: HYDRALAZINE HCL 25 MG TABLET PO SCH ×2 (14:57→20:52)
[2023-05-05] MEDS: GABAPENTIN 300 MG CAP PO SCH (20:52)
[2023-05-06] MEDS: HEPARIN 5000 UNIT/ML 1 ML VIAL SQ SCH ×3 (01:30→16:38)
[2023-05-06] MEDS: NA CHLORIDE 0.9% 1,000 ML IV SCH ×3 (01:30→19:26)
[2023-05-06] MEDS: HYDRALAZINE HCL 20 MG/ML VIAL IV PRN ×3 (01:31→21:35)
[2023-05-06 06:24] LABS: Absolute Lymphocytes (CBC) 1.3 K/uL (0.7-4.9); Hematocrit 32.5 % (39.6-49.0); Lymphocytes % 14.6 % (15.3-44.8); MCV 90.7 fL (80-100); MPV 9.4 fL (7.6-11.3); RBC Red Blood Cell Count 3.58 M/uL (4.33-5.43)
[2023-05-06 06:46] LABS: Albumin 2.6 g/dL (3.4-5.0); Bilirubin Total 0.4 mg/dL (0.2-1.0); C-Reactive Protein 4.5 mg/L (<3.00); Magnesium 1.8 mg/dL (1.6-2.4); Phosphorus 3.2 mg/dL (2.5-4.9); Potassium 4.3 mEq/L (3.5-5.1); Protein, Total 6.6 g/dL (6.4-8.2); Thyroid Stimulating Hormone 0.721 uIU/mL (0.358-3.740)
[2023-05-06 06:54] LABS: Troponin High Sensitivity 131.8 pg/mL (<58.9)
--- NOTE | 2023-05-06 06:59 | RAD REPORT ---
EXAM DESCRIPTION: RAD - Chest Single View - 05/06/2023 6:32 am CLINICAL HISTORY: pneumonia COMPARISON: <Comparisons> FINDINGS: Lines: None. Lungs: Enlarging consolidative process in left mid lung. Pleural: No significant pleural effusions or pneumothorax. Cardiac: The heart size is within normal limits. Mediastinum: Within normal limits. Bones: No acute fractures. Other: None IMPRESSION: Left mid lung consolidative process has increased in size since 04/26/2023. The short-te rm change would suggest pneumonia. Consider chest CT for further characterization.
[2023-05-06] MEDS: INSULIN -REGULAR HUMAN 50 UNIT/0.5 ML ML SQ SCH ×4 (07:30→21:34)
[2023-05-06] MEDS: HYDRALAZINE HCL 25 MG TABLET PO SCH ×2 (08:42→13:52)
[2023-05-06] MEDS ORDERED: MAGNESIUM SULFATE 1 gm IVPB 1 GM/100 ML BAG IV ONE (09:00)
--- NOTE | 2023-05-06 13:13 | EKG ---
Test Date: 2023-05-05 Test Time: 00:32:54 [employer] Chair: TASH MEASUREMENT RESULTS: Intervals: Rate: 72 NE: 222 QRSD: 124 QT: 426 QTc: 466 [place]: P: 55 NE: 222 QRS: -54 T: 75 INTERPRETIVE STATEMENTS: Sinus rhythm with 1st degree AV block with premature supraventricular complexes Left anterior fascicular block Left ventricular hypertrophy with QRS widening Abnormal ECG Compared to ECG 04/26/2023 16:06:41 Atrial premature complex(es) now present Left anterior fascicular block now present Sinus bradycardia no longer present Left-axis deviation no longer present Early repolarization no longer present Electronically Signed On 05-06-23 13:11:15 CDT by Pete Willard
[2023-05-06] MEDS ORDERED: CARBOXYMETHYLCELLULOSE SODIUM OPTH PRN (15:33)
[2023-05-06] MEDS ORDERED: METHYLPREDNISOLONE 40 MG INJ IV ONE (16:00)
[2023-05-06] MEDS: PANTOPRAZOLE 40MG TABLET PO SCH (16:32)
[2023-05-06] MEDS ORDERED: HYDROMORPHONE ORAL 4 MG TAB PO ONE (16:40)
--- NOTE | 2023-05-06 16:54 | RAD REPORT ---
EXAM DESCRIPTION: CT Head Without Intravenous Contrast CLINICAL HISTORY: Ams TECHNIQUE: Axial computed tomography images of the head/brain without intravenous contrast. Sagitt al and coronal reformatted images were created and reviewed. This CT exam was performed using one o r more of the following dose reduction techniques: automated exposure control, adjustment of the mA and/or kV according to patient size, and/or use of iterative reconstruction technique. COMPARISON: No relevant prior studies available. FINDINGS: Brain: Mild cerebral atrophy. No hemorrhage. No significant white matter disease. Ventricles: Unremarkable. No ventriculomegaly. Bones/joints: Unremarkable. No acute fracture. Soft tissues: Unremarkable. Vasculature: There is atherosclerotic disease of the internal carotid and vertebral arteries bilate rally. Sinuses: Unremarkable as visualized. No acute sinusitis. Mastoid air cells: Unremarkable as visualized. No mastoid effusion. IMPRESSION: 1. No acute hemorrhage, focal mass or large territory infarction. 2. Other findings as above. Electronically signed by: Ave Garcia MD 05/05/2023 1:52 AM CDT Due to temporary technical issues with the PACS/Fluency reporting system, reports are being signed by the in house radiologists without review as a courtesy to insure prompt reporting. The interpreting radiologist is fully responsible for the content of the report.
--- NOTE | 2023-05-06 17:17 | RAD REPORT ---
EXAM DESCRIPTION: Chest Single View CLINICAL HISTORY: 82-year-old male with fever. TECHNIQUE: Single view, AP portable chest was obtained. COMPARISON: None. FINDINGS: Unremarkable cardiac and mediastinal silhouette. Heart size is normal. Tortuous atheroscle rotic thoracic aorta. Low lung volumes grossly clear without focal opacity, pneumothorax or pleural effusions. The visual ized bones are within normal limits. IMPRESSION: No acute cardiopulmonary abnormalities. Electronically signed by: Siomara Mosqueda MD 05/05/2023 12:23 AM CDT Due to temporary technical issues with the PACS/Fluency reporting system, reports are being signed by the in house radiologists without review as a courtesy to insure prompt reporting. The interpreting radiologist is fully responsible for the content of the report.
[2023-05-06] MEDS ORDERED: GABAPENTIN 300 MG CAP PO SCH (21:00)
[2023-05-06] MEDS: ATORVASTATIN 10 MG TAB PO SCH (21:20)
[2023-05-06] MEDS: GABAPENTIN 300 MG CAP PO SCH (21:20)
[2023-05-06] MEDS: lisinopriL 20 MG TAB PO SCH (21:21)
[2023-05-06] MEDS: HYDRALAZINE HCL 10 MG TABLET PO SCH (21:33)
[2023-05-07] MEDS: HEPARIN 5000 UNIT/ML 1 ML VIAL SQ SCH ×3 (00:27→17:37)
[2023-05-07] MEDS: NA CHLORIDE 0.9% 1,000 ML IV SCH ×2 (04:57→12:01)
[2023-05-07] MEDS ORDERED: LEVOTHYROXINE SOD 0.05 MG TABLET PO SCH (06:30)
[2023-05-07 07:03] LABS: Absolute Lymphocytes (CBC) 1.7 K/uL (0.7-4.9); Hematocrit 31.3 % (39.6-49.0); Lymphocytes % 19.9 % (15.3-44.8); MPV 9.1 fL (7.6-11.3); RBC Red Blood Cell Count 3.44 M/uL (4.33-5.43)
[2023-05-07] MEDS: INSULIN -REGULAR HUMAN 50 UNIT/0.5 ML ML SQ SCH ×4 (07:30→19:57)
[2023-05-07 07:43] LABS: Albumin 2.4 g/dL (3.4-5.0); Bilirubin Total 0.3 mg/dL (0.2-1.0); Magnesium 1.8 mg/dL (1.6-2.4); Potassium 4.5 mEq/L (3.5-5.1)
[2023-05-07 07:48] LABS: Troponin High Sensitivity 114.5 pg/mL (<58.9)
[2023-05-07] MEDS ORDERED: HYDRALAZINE HCL 10 MG TABLET PO SCH (08:00)
[2023-05-07] MEDS: lisinopriL 20 MG TAB PO SCH ×2 (08:05→19:57)
[2023-05-07] MEDS: PANTOPRAZOLE 40MG TABLET PO SCH (08:05)
[2023-05-07] MEDS: HYDRALAZINE HCL 20 MG/ML VIAL IV PRN (08:05)
[2023-05-07] MEDS ORDERED: CYANOCOBALAMIN 100 MCG PO SCH (09:00)
[2023-05-07] MEDS ORDERED: AMLODIPINE 10 MG TAB PO SCH (09:00)
[2023-05-07] MEDS ORDERED: HYDROMORPHONE ORAL 2 MG TAB PO SCH (09:00)
[2023-05-07] MEDS ORDERED: terbinafine HCL 250 MG TAB PO SCH (09:00)
[2023-05-07] MEDS ORDERED: METOPROLOL XL 25 MG TAB PO SCH (09:00)
--- NOTE | 2023-05-07 11:23 | P.PN ---
Subjective Date of Service: 05/06/23 Conversation with family. They are going to be able to take patient home tomorrow. The patient's daughter lives with him and her children are there at that time as well. He was at home for a little while by himself and he appeared to not turn the air conditioner on so he got overheated and brought to the hospital where he was initially lethargic but he came around very quickly. Work-up is unremarkable. Patient may be able to go home in a.m. pending additional work-up. Review of Systems 10-point ROS is otherwise unremarkable Physical Examination - Vital Signs Temperature: 98.6 F Blood Pressure: 220/90 Pulse: 67 Respirations: 14 Pulse Ox (%): 96 - Physical Exam General: Alert, In no apparent distress, Oriented x2 HEENT: Atraumatic, PERRLA, EOMI Neck: Supple, JVD not distended Respiratory: Clear to auscultation bilaterally, Normal air movement Cardiovascular: Regular rate/rhythm, Normal S1 S2, No murmurs Gastrointestinal: Normal bowel sounds, Soft and benign, Non-distended, No tenderness Musculoskeletal: No tenderness Integumentary: No rashes Neurological: Cranial nerves 3-12 intact, Abnormal gait, Abnormal speech, Abnormal strength - Studies Laboratory Data (last 24 hrs) 05/07/23 05/07/23 05/07/23 06:51 06:51 05:00 WBC 8.70 Hgb 10.4 L Hct 31.3 L Plt Count 142 L Sodium 136 Cancelled Potassium 4.5 Cancelled BUN 23 H Cancelled Creatinine 0.85 Cancelled Glucose 237 H Cancelled Magnesium 1.8 Cancelled Total Bilirubin 0.3 AST 14 L ALT 17 Alkaline Phosphatase 50 Medications List Reviewed: Yes Assessment & Plan - Problems (Diagnosis) (1) Generalized weakness Current Visit: Yes Status: Acute (2) Altered mental status Current Visit: Yes Status: Acute (3) Heat exhaustion Current Visit: Yes Status: Acute (4) Elevated troponin Current Visit: Yes Status: Acute (5) Hypertension Current Visit: Yes Status: Acute (6) Anemia Current Visit: Yes Status: Acute - Plan Plan: 1. Continue with cardiac meds 2. Antiplatelet and statin therapy 3. Strict blood pressure control 4. IV hydration 5. Monitor labs 6. GI DVT prophylaxis Discharge Plan: Home Plan to discharge in: Greater than 2 days - Advance Directives Does patient have a Living Will: No Does patient have a Durable POA for Healthcare: No - Code Status/Comfort Care Code Status: Full Code Physician Review: Patient Assessed, Agree with Above Assessment and Plan Critical Care: No Time Spent Managing PTS Care (In Minutes): 35
[2023-05-07] MEDS ORDERED: cloNIDine HCL 0.1 MG TAB PO ONE (12:04)
[2023-05-07] MEDS: HYDRALAZINE HCL 10 MG TABLET PO SCH (19:56)
[2023-05-07] MEDS: GABAPENTIN 300 MG CAP PO SCH (19:57)
[2023-05-07] MEDS: ATORVASTATIN 10 MG TAB PO SCH (19:57)
[2023-05-07 19:59] VITALS: BP 147/67; TEMP 98.1
[2023-05-07 20:01] VITALS: O2SAT 96
--- NOTE | 2023-05-08 07:28 | ECHO ---
HEIGHT: 5 ft 11 in WEIGHT: 172 lb 8 oz DATE OF STUDY: 05/07/[address]: Efrain Doyle MD 2-DIMENSIONAL: YES M.MODE: YES DOPPLER: YES COLOR FLOW: YES TDS: NO PORTABLE: YES DEFINITY: NO BUBBLE STUDY: NO DIAGNOSIS: ELEVATED TROPONIN CARDIAC HISTORY: CATHERIZATION:YES SURGERY: NO PROSTHETIC VALVE: NO PACEMAKER: NO MEASUREMENTS (cm) DIASTOLIC (NORMALS) SYSTOLIC (NORMALS) IVSd 1.1 (0.6-1.2) LA Diam 3.0 (1.9-4.0) LVEF 62% LVIDd 3.5 (3.5-5.7) LVIDs 2.4 (2.0-3.5) %FS 32% LVPWd 1.1 (0.6-1.2) Ao Diam 3.1 (2.0-3.7) 2 DIMENSIONAL ASSESSMENT: RIGHT ATRIUM: NORMAL LEFT ATRIUM: NORMAL RIGHT VENTRICLE: NORMAL LEFT VENTRICLE: NORMAL TRICUSPID VALVE: NORMAL MITRAL VALVE: MILD MR PULMONIC VALVE: NORMAL AORTIC VALVE: MILD AI PERICARDIAL EFFUSION: NONE AORTIC ROOT: NORMAL LEFT VENTRICULAR WALL MOTION: NORMAL DOPPLER/COLOR FLOW: 1. MILD MITRAL REGURGITATION. 2. MILD AORTIC REGURGITATION. COMMENTS: 1. NORMAL LEFT VENTRICULAR EJECTION FRACTION 55-60% WITH NORMAL WALL MOTION. 2. MILD MITRAL REGURGITATION. 3. MILD AORTIC REGURGITATION. TECHNOLOGIST: Terence SALINAS
== END 2023-05-07 21:20 | disposition home health service (06) | DRG 923 ==
LOC: ER 23:14 → ERHOLD 05-05 03:45 → 2ND 05-05 05:11 → OBSVTOIN 05-07 09:41
PROVIDERS: ADMIT Hospitalist; ATTEND Hospitalist
DX: T67.5XXA Heat exhaustion, unspecified, initial encounter (principal); N17.9 Acute kidney failure, unspecified; I10 Essential (primary) hypertension; E83.51 Hypocalcemia; E83.42 Hypomagnesemia; D64.9 Anemia, unspecified; E11.65 Type 2 diabetes mellitus with hyperglycemia; T68.XXXA Hypothermia, initial encounter; R77.8 Other specified abnormalities of plasma proteins; Z88.0 Allergy status to penicillin
CPT/HCPCS: 36415; 70450; 71045; 80048; 80053; 81001; 82533; 82550; 82607; 82947; 83540; 83605; 83735; 83880; 84100; 84439; 84443; 84484; 85025; 85044; 85610; 85730; 86140; 87040; 93005; 93306; 96365; 99285; J0360; J0692; J1644; J1815; J2920; J2930; J3475; J7030

== ENCOUNTER 2024-05-30 10:54 | Inpatient (IN) | payer OTHER ==
--- OUTSIDE RECORDS SUMMARY | 2024-05-30 10:58 | XMS REPORT | Continuity of Care Document ---
Author Name Unknown Address [address] [facility] [address] [place] [address] [facility] thconnect Address [address] [facility] [address] [place] [address] Care Team Providers Care Tool Setter Name Role Phone [place], [facility] Primary Car e Physician PAPA BOYD Attending Clinician Unavailable Doctor Unassigned, [place] Attending Clinician U preston Herrera MD, Abdullahi Attending Clinician [phone] Papa Boyd MD Attending Clinician [phone] ANGEL PARSON Attending Clinician UnavailAngel Zacarias MD Attending Clinician [phone] Pob, [facility] Main Attending Clinician UnavailTAMMY Aquino Attending Clinician Unavailable Jass Ya MD Attending Clinician [phone] JASS YA Attending Clinician Unavail able JASS YA Attending Clinician Unavail able ANGEL PARSON Admitting Clinician Angel Oakley MD Admitting Clinician [phone] Payers Payer Name Policy Type Policy Number Effective Date Expirati on Date Source Problems Condition Name Condition Details Condition Category Status Onset Date Resolution Date Last Treatment Date Treating Clinician Comments Source 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 pectoris Disease Active 01-27 00:00: 00 [facility] Ascending aorta dilatation Ascending aorta dilatation Disease Active 01-27 00:00: 00 [facility] Stenosis of left carotid artery Stenosis of left carotid artery Disease Active 01-27 00:00: 00 [facility] Preop cardiovasc ular exam Preop cardiovasc ular exam Disease Active 01-27 00:00: 00 [facility] Mixed hyperlipid emia Mixed hyperlipid emia Disease Active 10-17 00:00: 00 [facility] Primary hypertensi on Primary hypertensi on Disease Active 10-17 00:00: 00 [facility] No known active problems No known active problems Disease [facility] Allergies, Adverse Reactions, Alerts Allergy Name Allergy Type Status Severity Reaction(s) Onset Date Inactive Date Treating Clinician Comments Source PENICILL INS Drug Class Active Rash 05-25 00:00: 00 [facility] Penicill ins Propensi ty to adverse reaction s Active Rash 05-25 00:00: 00 [facility] Social History Social Habit Start Date Stop Date Quantity Comments [facility] intake 2024-02-05 00:00:00 2024-02-05 00:00:00 Current drinker of alcohol (finding) [facility] History of Social function 2024-02-04 00:00:00 2024-02-04 00:00:00 [facility] Alcohol intake 2024-01-28 00:00:00 2024-01-28 00:00:00 Current drinker of alcohol (finding) [facility] Exposure to SARS-CoV-2 (event) 2022-10-27 00:00:00 2022-11-06 13:41:00 Not sure [facility] Alcohol Comment 2017-05-28 00:00:00 2017-05-28 00:00:00 occasional [facility] History of tobacco use 1988-05-28 00:00:00 2016-01-27 00:00:00 Cigarette Smoker [facility] Sex assigned at 1940 00:00:00 1940 00:00:00 [facility] Smoking Status Start Date Stop Date Source Ex-smoker 2022-10-17 00:00:00 2022-10-17 00:00:00 U [facility] Medications Ordered Medication Name Filled Medication Name Start Date Stop Date Current Medication? Ordering Clinician Indication Dosage Frequency Signature (SIG) Comments Components Source HYDROcodone -acetaminop hen (NORCO 5) 5-325 mg tablet 1 tablet 02-03 13:45: 00 02-03 13:40 :00 No 1{tbl} 1 tablet, Oral, ONCE, 1 dose, On Sun02/04/24 at 0845, Routine, PACU [facility] lactated ringers IV infusion 1,000 mL 02-03 13:45: 00 02-03 17:29 :23 No 1000mL at 100 mL/hr, 1,000 mL, IV Infusion, CONTINUOUS , Starting on Sun02/04/24 at 0845, Until Sun02/04/24 at 1229, Routine, PACU [facility] HYDROmorphO ne (DILAUDID) injection 0.2 mg 02-03 13:35: 17 02-03 17:29 :23 No .2mg 0.2 mg, Slow IV Push, Q5MIN PRN, 10 doses, Starting on Sun02/04/24 at 0835, Until Sun02/04/24 at 1229, Routine, Pain (scale 7-10), PACU
Us e approved by (Faculty): PACU USE -ANESTHESI A SERVICE-HY DROMORPHON E INJECTIONS [facility] FENTanyl PF (SUBLIMAZE (PF)) injection 25 mcg 02-03 13:35: 17 02-03 17:29 :23 No 25ug 25 mcg, Slow IV Push, Q5MIN PRN, 4 doses, Starting on Sun02/04/24 at 0835, Until Sun02/04/24 at 1229, Routine, Pain (scale 4-6), PACU [facility] ondansetron (ZOFRAN (PF)) injection 4 mg 02-03 13:35: 17 02-03 17:29 :23 No 4mg 4 mg, Slow IV Push, PRN, 1 dose, Starting on Sun02/04/24 at 0835, Until Sun02/04/24 at 1229, Routine, Nausea and Vomiting (N/V), PACU [facility] bupivacaine (preserv free) (SENSORCAIN E MPF) 0.25 % (2.5 mg/mL) injection 02-03 12:39: 00 02-03 13:18 :07 No PRN, Starting on Sun02/04/24 at 0739, Until Sun02/04/24 at 0818, Routine, Intra-op [facility] sodium chloride 0.9 % irrigation solution 02-03 12:30: 00 02-03 13:18 :07 No PRN, Starting on Sun02/04/24 at 0730, Until Sun02/04/24 at 0818, Intra-op [facility] lactated ringers IV infusion 1,000 mL 02-03 11:45: 00 02-03 12:05 :00 No 1000mL at 42 mL/hr, 1,000 mL, IV Infusion, ONCE, 1 dose, On Sun02/04/24 at 0645, Routine, DSU Pre-op [facility] aspirin 81 mg chewable tablet 02-03 10:29: 18 Yes 81mg Take 1 tablet by mouth in the morning. [facility] Bisacodyl 5 mg Tab 02-03 10:29: 18 Yes 1{tbl} Take 1 tablet by mouth 2 (two) times daily. [facility] docusate 100 mg capsule 02-03 10:29: 18 Yes 100mg Take 1 capsule by mouth in the morning and 1 capsule in the evening. [facility] MULTIVITAMI N ORAL 02-03 10:29: 18 Yes 1{tbl} Take 1 tablet by mouth daily. [facility] Cholecalcif reymundo, Vitamin D3, 10 mcg (400 unit) capsule 02-03 10:29: 18 Yes 400U Take 1 capsule by mouth in the morning. [facility] vitamin B-12 (VITAMIN B-12) 100 mcg tablet 02-03 10:29: 18 Yes 100ug Take 1 tablet by mouth in the morning. [facility] hydralAZINE 10 mg tablet 02-03 10:29: 18 Yes 10mg Take 1 tablet by mouth in the morning and 1 tablet in the evening. Indication s: 2 tabs in AM and 1 tab in PM [facility] lisinopril 20 mg tablet 02-03 10:29: 18 Yes 20mg Take 1 tablet by mouth in the morning and 1 tablet in the evening. [facility] omeprazole 20 mg capsule 02-03 10:29: 18 Yes 20mg Take 1 capsule by mouth in the morning. [facility] Carboxymeth ylcellulose -Glycern 0.5-0.9 % Drop 02-03 10:29: [address] in each eye. [facility] metoprolol tartrate 25 mg tablet 02-03 10:29: 18 04-24 00:00 :00 No 25mg Take 1 tablet by mouth in the morning. [facility] Cholecalcif reymundo, Vitamin D3, 10 mcg (400 unit) capsule 01-27 10:57: 31 Yes 400U Take 1 capsule by mouth in the morning. [facility] amLODIPine 5 mg tablet 01-27 00:00: 00 Yes [id number] 5mg Take 1 tablet by mouth in the morning. [facility] ticagrelor 90 mg tablet 10-17 14:21: 22 10-17 00:00 :00 No 90mg Take 90 mg by mouth 2 (two) times daily. [facility] nitroglycer in 0.4 mg sublingual tablet 10-17 00:00: [id number] 1 tablet under the tongue every 5 (five) minutes as needed for Chest pain. [facility] amLODIPine 5 mg tablet 10-17 00:00: 00 01-27 00:00 :00 No 10mg Take 2 tablets by mouth in the morning. [facility] insulin NPH 100 unit/mL injection 10-10 10:52: 44 10-10 00:00 :00 No 25U inject 25 Units under the skin every morning and evening. [facility] MULTIVITAMI N ORAL 10-10 09:19: 47 Yes 1{tbl} Take 1 tablet by mouth daily. [facility] Bisacodyl 5 mg Tab 10-10 09:19: 08 Yes 1{tbl} Take 1 tablet by mouth 2 (two) times daily. [facility] docusate 100 mg capsule 10-10 09:19: 08 Yes 100mg Take 1 capsule by mouth in the morning and 1 capsule in the evening. [facility] Cholecalcif reymundo, Vitamin D3, 10 mcg (400 unit) capsule 10-10 09:19: 08 Yes 1{capsu le} Take 1 capsule by mouth daily. [facility] hydralAZINE 10 mg tablet 10-10 09:19: 08 Yes 10mg Take 1 tablet by mouth in the morning and 1 tablet in the evening. Indication s: 2 tabs in AM and 1 tab in PM [facility] lisinopril 20 mg tablet 10-10 09:19: 08 Yes 20mg Take 1 tablet by mouth in the morning and 1 tablet in the evening. [facility] omeprazole 20 mg capsule 10-10 09:19: 08 Yes 20mg Take 1 capsule by mouth in the morning. [facility] Carboxymeth ylcellulose -Glycern 0.5-0.9 % Drop 10-10 09:19: [address] in each eye. [facility] gabapentin 300 mg capsule 10-10 00:00: 00 Yes [id number] 600mg Take 2 capsules by mouth at bedtime. [facility] amLODIPine 10 mg tablet 2021-10 00:00: 00 10-17 00:00 :00 No 10mg 10 mg. [facility] HYDROmorpho ne 4 mg tablet 2021-10 00:00: 00 Yes TAKE 1 TABLET BY MOUTH ONCE DAILY FOR 28 DAYS [facility] metFORMIN 1,000 mg tablet 2021-10 00:00: 00 Yes 1000mg Take 1 tablet by mouth in the morning and 1 tablet in the evening. Take with meals. [facility] terbinafine HCL 250 mg tablet 2021-10 00:00: 00 Yes 250mg 1 tablet. [facility] atorvastati n 20 mg tablet 2021-10 00:00: 00 Yes 10mg 0.5 tablets. [facility] metoprolol succinate XL 25 mg 24 hr tablet 2021-10 00:00: 00 Yes 25mg 1 tablet. [facility] gabapentin 300 mg capsule 2021-10 00:00: 00 10-10 00:00 :00 No 300mg 300 mg. [facility] albuterol-i pratropium 20-100 mcg/actuati on inhaler 04-07 00:00: 00 Yes INHALE 1 PUFF MOUTH FOUR TIMES A DAY NEEDED REPLACES COMBIVENT INHALER. USE ONLY ONE INHALATION PER DOSE [facility] aspirin 81 mg chewable tablet 05-28 12:36: 02 Yes 81mg Take 1 tablet by mouth in the morning. [facility] vitamin B-12 (VITAMIN B-12) 100 mcg tablet 05-28 12:36: 02 Yes 100ug Take 1 tablet by mouth in the morning. [facility] metoprolol tartrate 25 mg tablet 05-28 12:36: 02 Yes 25mg Take 1 tablet by mouth in the morning. [facility] Bisacodyl 5 mg Tab 05-28 12:36: 02 Yes 1{tbl} Take 1 tablet by mouth 2 (two) times daily. [facility] docusate 100 mg capsule 05-28 12:36: 02 Yes 100mg Take 100 mg by mouth 2 (two) times daily. [facility] MULTIVITAMI N ORAL 05-28 12:36: 02 Yes 1{tbl} Take 1 tablet by mouth daily. [facility] Cholecalcif reymundo, Vitamin D3, (VITAMIN D3) 400 unit capsule 05-28 12:36: 02 Yes 1{capsu le} Take 1 capsule by mouth daily. [facility] ticagrelor 90 mg tablet 05-28 12:36: 02 Yes 90mg Take 90 mg by mouth 2 (two) times daily. [facility] hydralAZINE 10 mg tablet 05-28 12:36: 02 Yes 10mg Take 10 mg by mouth 2 (two) times daily. Indication s: 2 tabs in AM and 1 tab in PM [facility] lisinopril 20 mg tablet 05-28 12:36: 02 Yes 20mg Take 20 mg by mouth 2 (two) times daily. [facility] omeprazole 20 mg capsule 05-28 12:36: 02 Yes 20mg Take 20 mg by mouth daily. [facility] insulin NPH 100 unit/mL injection 05-28 12:36: 02 Yes 25U inject 25 Units under the skin every morning and evening. [facility] Immunizations Ordered Immunization Name Filled Immunization Name Date Status Comments Source Influenza High Dose 2022-09-05 00:00:00 Completed [facility] Influenza High Dose 2022-09-05 00:00:00 Completed [facility] Influenza High Dose 2022-09-05 00:00:00 Completed [facility] Influenza High Dose 2022-09-05 00:00:00 Completed [facility] Influenza High Dose 2022-09-05 00:00:00 Completed [facility] Influenza High Dose 2022-09-05 00:00:00 Completed [facility] Influenza High Dose Unknown Completed [facility] Influenza High Dose Unknown Completed [facility] Influenza High Dose Unknown Completed [facility] Influenza High Dose Unknown Completed [facility] Influenza High Dose Unknown Completed [facility] Influenza High Dose Unknown Completed [facility] Influenza High Dose Unknown Completed [facility] Influenza High Dose Unknown Completed [facility] Influenza High Dose Unknown Completed [facility] Influenza High Dose Unknown Completed [facility] Influenza High Dose Unknown Completed [facility] Influenza High Dose Unknown Completed [facility] Influenza High Dose Unknown Completed [facility] Influenza High Dose Unknown Completed [facility] Influenza High Dose Unknown Completed [facility] Influenza High Dose Unknown Completed [facility] Vital Signs Vital Name Observation Time Observation Value Comments S ource Heart rate 2024-02-04 14:35:00 65 /min [facility] Respiratory rate 2024-02-04 14:35:00 13 /min [facility] Oxygen saturation in Arterial blood by Pulse oximetry 2024-02-04 14:35:00 97 /min [facility] Systolic blood pressure 2024-02-04 14:34:00 194 mm[Hg] [facility] Diastolic blood pressure 2024-02-04 14:34:00 55 mm[Hg] [facility] Body temperature 2024-02-04 13:18:00 36.44 Angelica [facility] Body height 2024-01-25 15:01:00 180.3 cm [facility] Body weight 2024-01-25 15:01:00 83.9 kg [facility] BMI 2024-01-25 15:01:00 25.81 kg/m2 [facility] Heart rate 2024-02-04 13:27:00 62 /min [facility] Respiratory rate 2024-02-04 13:27:00 18 /min [facility] Oxygen saturation in Arterial blood by Pulse oximetry 2024-02-04 13:27:00 100 /min [facility] Systolic blood pressure 2024-02-04 13:23:00 153 mm[Hg] [facility] Diastolic blood pressure 2024-02-04 13:23:00 53 mm[Hg] [facility] Body temperature 2024-02-04 13:18:00 36.44 Angelica [facility] Body height 2024-01-25 15:01:00 180.3 cm [facility] Body weight 2024-01-25 15:01:00 83.9 kg [facility] BMI 2024-01-25 15:01:00 25.81 kg/m2 [facility] Systolic blood pressure 2024-01-28 18:26:00 162 mm[Hg] [facility] Diastolic blood pressure 2024-01-28 18:26:00 62 mm[Hg] [facility] Heart rate 2024-01-28 18:26:00 64 /min [facility] Body temperature 2024-01-28 18:26:00 36.11 Angelica [facility] Respiratory rate 2024-01-28 18:26:00 19 /min [facility] Body weight 2024-01-28 18:26:00 81.375 kg [facility] BMI 2024-01-28 18:26:00 25.02 kg/m2 [facility] Oxygen saturation in Arterial blood by Pulse oximetry 2024-01-28 18:26:00 95 /min [facility] Body height 2024-01-28 18:24:00 180.3 cm [facility] Systolic blood pressure 2022-10-17 20:10:00 160 mm[Hg] [facility] Diastolic blood pressure 2022-10-17 20:10:00 52 mm[Hg] [facility] Heart rate 2022-10-17 20:10:00 55 /min [facility] Respiratory rate 2022-10-17 20:02:00 22 /min [facility] Body height 2022-10-17 20:02:[address] [facility] Body weight 2022-10-17 20:02:00 83.87 kg [facility] BMI 2022-10-17 20:02:00 25.79 kg/m2 [facility] Oxygen saturation in Arterial blood by Pulse oximetry 2022-10-17 20:02:00 97 /min [facility] Systolic blood pressure 2022-10-10 15:19:00 165 mm[Hg] [facility] Diastolic blood pressure 2022-10-10 15:19:00 54 mm[Hg] [facility] Heart rate 2022-10-10 15:19:00 57 /min [facility] Body height 2022-10-10 15:19:00 180.3 cm [facility] Body weight 2022-10-10 15:19:00 84.823 kg [facility] BMI 2022-10-10 15:19:00 26.08 kg/m2 [facility] Oxygen saturation in Arterial blood by Pulse oximetry 2022-10-10 15:19:00 94 /min [facility] Procedures Procedure Date / Time Performed Performing Clinician Source CAROTID DUPLEX BILATERAL - BY VASCULAR LAB 2024-04-22 20:20:35 Papa Boyd [facility] VENOUS REFLUX DUPLEX BILATERAL - BY VASCULAR LAB 2024-04-22 20:20:28 Papa Boyd [facility] INTRATHECAL INFUSION PUMP REVISION 2024-02-04 12:03:00 Angel Parson [facility] POCT GLUCOSE (AUTOMATED) 2024-02-04 11:53:00 Angel Parson [facility] POCT GLUCOSE (AUTOMATED) 2024-02-04 11:53:00 Angel Parson [facility] HB ECG ROUTINE & RHYTHM STRIP 2024-01-28 18:28:08 Papa Boyd [facility] AUTHORIZATION FOR RELEASE OF PHI 2023-01-18 05:01:00 Doctor Unassigned, [place] [facility] ASSIGNMENT OF BENEFITS 2022-10-10 14:57:31 Docto r Unassigned, [place] [facility] Encounters Start Date/Time End Date/Time Encounter Type Admission Type Attending Clinicians Care Facility Care Department Encounter ID Source 2022-03-30 10:37:02 Outpatient [facility] [id number] [facility] 2024-04-08 00:00:00 2024-05-10 18:20:22 Patient Secure Msg Doctor Unassigned, [place] [facility] 1.2.840.114 350.1.13.10 4.2.7.2.686 [id number] [facility] 2024-04-25 00:00:00 2024-04-28 11:17:31 Telephone Sharon [facility] 1.2.840.114 350.1.13.10 4.2.7.2.686 [id number] [facility] 2024-04-24 14:30:00 2024-04-24 15:47:56 Outpatient R SHARON [facility] [id number] [facility] 2024-04-24 14:30:00 2024-04-24 15:47:56 Office Visit Sharon [facility] 1.2.840.114 350.1.13.10 4.2.7.2.686 [id number] [facility] 2024-04-22 14:23:29 2024-04-22 23:59:00 [facility] 1.2.840.114 350.1.13.10 4.2.7.2.686 [id number] [facility] 2024-04-22 14:00:00 2024-04-22 14:22:00 [facility] [id number] [facility] 2024-04-22 14:00:00 2024-04-22 14:22:00 [facility] 1.2.840.114 350.1.13.10 4.2.7.2.686 [id number] [facility] 2024-02-22 11:00:00 2024-02-22 11:00:00 [facility] [id number] [facility] 2024-02-04 06:38:00 2024-02-04 09:47:00 Outpatient R ANGEL PARSON [facility] [id number] [facility] 2024-02-04 06:38:00 2024-02-04 09:47:00 Hospital Encounter Angel Parson [facility] 1.2.840.114 350.1.13.10 4.2.7.2.686 [id number] [facility] 2024-02-04 07:15:00 2024-02-04 08:27:00 Surgery Angel Parson [facility] 1.2.840.114 350.1.13.10 4.2.7.2.686 [id number] [facility] 2024-02-02 00:00:00 2024-02-02 00:00:00 Patient Secure Msg Doctor Unassigned, [place] [facility] 1.2840.114 350.1.13.10 4.2.7.2.686 [id number] [facility] 2024-01-28 13:20:00 2024-01-28 13:49:47 [facility] [id number] [facility] 2024-01-28 13:20:00 2024-01-28 13:49:47 [facility] 1..840.114 350.1.13.10 4.2.7.2.686 [id number] [facility] 2024-01-28 12:15:00 2024-01-28 12:30:00 Email Marketing Intern Visit Pob, Adc Lab Main Angel Parson [facility] 1.2840.114 350.1.13.10 4.2.7.2.686 [id number] [facility] 2024-01-21 00:00:00 2024-01-21 00:00:00 [facility]phone [facility] 1.2.840.114 350.1.13.10 4.2.7.2.686 [id number] [facility] 2023-01-19 00:00:00 2023-01-19 00:00:00 [facility] 1.2.840.114 350.1.13.10 4.2.7.2.686 [id number] [facility] 2023-01-18 00:00:00 2023-01-18 00:00:00 Orders Only Doctor Unassigned, [place] [facility] 1.2.840.114 350.1.13.10 4.2.7.2.686 [id number] [facility] 2022-11-06 13:42:20 2022-11-06 23:59:00 [facility] [id number] [facility] 2022-11-06 00:00:00 2022-11-06 00:00:00 Patient Secure Msg Juliano [facility] 1.2.840.114 350.1.13.10 4.2.7.2.686 [id number] [facility] 2022-10-17 13:40:00 2022-10-17 14:29:53 [facility] [id number] [facility] 2022-10-17 13:40:00 2022-10-17 14:29:53 Office Visit Juliano [facility] 1.2.840.114 350.1.13.10 4.2.7.2.686 [id number] [facility] 2022-10-10 09:20:00 2022-10-10 10:58:19 Office Visit Jass Ya [facility] 1.2.840.114 350.1.13.10 4.2.7.2.686 [id number] [facility] 2022-10-10 09:20:00 2022-10-10 10:58:19 Outpatient Stephen GARCIAOSMANY, JASS OSMANYJASS Sharma [facility] [id number] [facility] 2022-10-10 00:00:00 2022-10-10 00:00:00 Orders Only Doctor Unassigned, [place] [facility] 1.2.840.114 350.1.13.10 4.2.7.2.686 [id number] [facility] 2017-05-28 06:42:00 2017-05-28 11:25:00 Outpatient Stephen STRINGEREBDANIELT [facility] [id number] [facility] Results Test Description Test Time Test Comments Results Result Co mments Source [facility] 11:56:53* Test Item Value Reference Range Interpretation Comme nts POCT GLU (test code = [id number]) 168 mg/dL 70-110 H Lab Interpretation (test cod e = [id number]) Abnormal [facility] Notes Date/Time Note Provider Source 2024-04-25 14:00:12 Copied from [facility] #[id number]. Topic: Clinical - Medical Advice >> Apr 25, 2024 1:58 PM Patient Supervisor Fitting wrote: Chelsey Saba is a 83 year old male. Pt states he forgot to tell the nurse two of the medications that he was on : albuterol-ipratropium 20-100 mcg/actuation inhaler atorvastatin 20 mg tablet Arden Pyle [facility] 2024-01-28 13:55:19 Cardiac Clearance request form signed by Dr. Boyd and faxed back to [facility] and scanned into chart along with fax confirmation. Annia Wahl MA [facility] 2024-01-28 13:20:00 Addended by: PAPA BOYD MD on: 04/11/2024 11:00 AM Modules accepted: Orders [facility] 2024-01-28 13:20:00 Addended by: PAPA BOYD MD on: 04/22/2024 09:56 PM Modules accepted: Orders [facility] 2024-01-28 12:15:00 Images from the original note were not included. Venipuncture collection performed by clean technique on the left anticubitus. Total of 1 attempts were made. Slight pressure and a bandage/dressing were applied to the site(s). The patient experienced no complications. The following specimens were processed according to instructions and sent to [facility] laboratories per lab order on 01/28/2024: LT BLUE SST RED LAV 1 PPT DK GREEN (LiHep) DK GREEN (SodH) ALCOCER DK BLUE (K2) DK BLUE (S) ACD Blood Culture NIPT/NTD [facility] 2024-01-28 11:05:36 Images from the original note were not included. Your procedure is at [facility] on 02/04/24. The address is [address] [place] [address], [id number]. [facility] [place] nursing staff will call you the workday before your procedure to let you know what time to arrive.On the day of your procedure, please go inside that door and check in at the desk. Please note: You may not travel home alone and that includes in a taxi or by bus. We must speak to your Responsible Adult (who will be picking you up) the morning of your procedure, before the start of your procedure. This person must be an adult over the age of 18 years of age. Do not eat any solid food after midnight the night before surgery. You may have sips of clear liquids such as water, gatorade, and sprite up until two hours before your scheduled procedure. You may take your medications with a sip of water as directed by physician. Anticoagulants will be per physician guidance. Medication Note(s)/Instructions:Patient has appointment today with cardiology, will address hold/continue ASA. Instructions given to hold lisinopril day before and morning of surgery and hold metformin evening before and morning of surgery. Pending screening, we may test for COVID. If a patient tests positive, their cases are cancelled and/or rescheduled. COVID SCREENING NOTE: Denies COVID symptoms, no testing required. Additional requests, questions, concerns:CB number provided. Patient verbalized understanding of pre-op instructions and voiced no further questions at this time. [facility] 2024-01-24 10:54:33 Cardiac Clearance request received via fax from [facility], patient's last O/V was 10/17/2022 and will need an appt., clinic notified. Form scanned into chart. Notified clinic and stated patient stated he would call today to try to get a sooner appt due to pain pump will be out in February. Notified Cardio PSS to help assist patient getting a sooner appt. Annia Wahl MA [facility] 2024-01-21 16:07:46 Cardiac Clearance request received via fax from [facility], patient's last O/V was 10/17/2022 and will need an appt., clinic notified. Form scanned into chart. Annia Wahl MA [facility]
[2024-05-30] MEDS ORDERED: FUROSEMIDE 40 MG/4 ML VIAL ONE (11:42)
[2024-05-30 11:47] LABS: Absolute Basophils 0.1 K/uL (0-0.5); Absolute Eosinophils 0.1 K/uL (0-0.5); Absolute Lymphocytes (CBC) 0.9 K/uL (0.7-4.9); Absolute Monocytes 1.3 K/uL (0.1-1.3); Absolute Neutrophil 7.8 K/uL (1.8-8.0); Basophils % 0.5 % (0-1.3); Eosinophils % 1.2 % (0-4.4); Hemoglobin 8.9 g/dL (13.6-17.9); Lymphocytes % 9.3 % (15.3-44.8); MCH 29.7 pg (27.0-35.0); MCHC 31.8 g/dL (32.0-36.0); MCV 93.4 fL (80-100); Monocytes % 12.5 % (3.3-12.3); Neutrophils % 76.5 % (41.7-73.7); Platelets 247 thou/uL (152-406); Red Cell Distribution Width 13.9 % (12.1-15.2)
[2024-05-30 12:06] LABS: ALT/SGPT 21 U/L (16-61); AST/SGOT 24 U/L (15-37); Albumin 2.3 g/dL (3.4-5.0); Albumin/Globulin Ratio 0.5 (1.1-1.8); Alkaline Phosphatase 61 U/L (45-117); Anion Gap 7.1 mEq/L (5.0-15.0); BUN Blood Urea Nitrogen 18 mg/dL (7-18); Bicarbonate 30 mEq/L (21-32); Bilirubin Total 0.3 mg/dL (0.2-1.0); Globulin 4.6 g/dL (2.3-3.5); Glomerular Filtration Rate 55 ml/min (=/>90); Glucose Level 167 mg/dL (74-106); Magnesium 1.7 mg/dL (1.6-2.4); NT PRO-BNP 27471 pg/mL (<450); Potassium 5.1 mEq/L (3.5-5.1); Protein, Total 6.9 g/dL (6.4-8.2); Sodium Level 133 mEq/L (136-145)
[2024-05-30 12:08] LABS: Bilirubin Direct < 0.2 mg/dL (0-0.2); Bilirubin Indirect, Calculated 0.1 mg/dL (0.2-0.8)
[2024-05-30 12:09] LABS: Troponin High Sensitivity 61.5 pg/mL (<58.9)
--- NOTE | 2024-05-30 12:25 | RAD REPORT ---
EXAM DESCRIPTION: Alyse Single View05/30/2024 11:39 am CLINICAL HISTORY: Shortness of breath COMPARISON: none FINDINGS: Opacification left lung base The right lung appears clear of acute infiltrate. Heart is mildly enlarged IMPRESSION: Opacification of the left lung base likely representing a combination of pneumonia and p leural effusion. This should be followed until it is clear to help exclude a post obstructive process /underlying mass
[2024-05-30] MEDS ORDERED: Levofloxacin 750mg IV 750 MG/150 ML BAG IV ONE (12:49)
--- NOTE | 2024-05-30 13:45 | ER ---
Nurse's Notes [facility] Name: Evin Saba Age: 83 yrs Sex: Male : 1940 Arrival Date: 05/30/2024 Time: 10:54 Bed 5 Private MD: Diagnosis: Systolic (congestive) heart failure;Unspecified bacterial pneumonia Presentation: 05/30 11:18 Chief complaint: Patient states: he was sent from the [place] for having "water on his ap3 lungs". patient reports increased leg swelling and shortness of breath. Coronavirus screen: At this time, the client does not indicate any symptoms associated with coronavirus-19. Ebola Screen: No symptoms or risks identified at this time. Initial Sepsis Screen: Does the patient meet any 2 criteria? No. Patient's initial sepsis screen is negative. Does the patient have a suspected source of infection? No. Patient's initial sepsis screen is negative. Initial Sepsis Screen: Does the patient meet any 2 criteria?. Risk Assessment: Do you want to hurt yourself or someone else? Patient reports no desire to harm self or others. Onset of symptoms is unknown. 11:18 Method Of Arrival: Wheelchair ap3 11:18 Acuity: FELICIA 3 ap3 Triage Assessment: 11:21 General: Appears distressed, Behavior is calm, cooperative, appropriate for age. Pain: ap3 Complains of pain in back Pain began years ago. Is chronic. Neuro: Level of Consciousness is awake, alert, obeys commands, Oriented to person, place, time, situation. Cardiovascular: Patient's skin is warm and dry. Respiratory: Reports shortness of breath Airway is patent. 11:30 Respiratory: the patient has mild shortness of breath. tm6 Historical: - Allergies: 13:08 PENICILLINS; tm6 - PMHx: 13:08 coronary atherosclerosis; Diabetes - NIDDM; Hypertension; Congestive heart failure; tm6 - PSHx: 13:08 back; hip; Left; tm6 - Immunization history:: Adult Immunizations up to date. - Infectious Disease History:: Denies. - Family history:: not pertinent. - Social history:: Smoking status: Patient denies any tobacco usage or history of. Screenin:32 [facility] ED Fall Risk Assessment (Adult) History of falling in the last 3 months, tm6 including since admission No falls in past 3 months (0 pts) Confusion or Disorientation No (0 pts) Intoxicated or Sedated No (0 pts) Impaired Gait Yes (1 pt) Mobility Assist Device Used No (0 pt) Altered Elimination No (0 pt) Score/Fall Risk Level 0 - 2 = Low Risk Oriented to surroundings, Maintained a safe environment, Educated pt \\T\\ family on fall prevention, incl call for assistance when getting out of bed. Abuse screen: Denies threats or abuse. Denies injuries from another. Nutritional screening: No deficits noted. Tuberculosis screening: No symptoms or risk factors identified. Assessment: 11:31 General: Appears uncomfortable, Behavior is cooperative. Neuro: Level of Consciousness tm6 is awake, alert, obeys commands, Oriented to person, place, time, situation. Cardiovascular: Patient's skin is warm and dry. Rhythm is regular. Respiratory: Airway is patent Respiratory effort is labored, Respiratory pattern is symmetrical, Breath sounds are coarse. GI: No signs and/or symptoms were reported involving the gastrointestinal system. Abdomen is flat, non-distended. : No signs and/or symptoms were reported regarding the genitourinary system. EENT: No signs and/or symptoms were reported regarding the EENT system. Derm: No signs and/or symptoms reported regarding the dermatologic system. 11:31 Pain: Complains of pain in back and chest Pain does not radiate. Pain currently is 8 tm6 out of 10 on a pain scale. Derm:. Musculoskeletal: Swelling present in right leg and left leg Reports edema in legs bilaterally. 12:36 Reassessment: Patient appears in no apparent distress at this time. Patient and/or tm6 family updated on plan of care and expected duration. Pain level reassessed. Patient is alert, oriented x 3, equal unlabored respirations, skin warm/dry/pink. 12:36 Reassessment: patient has chronic back pain, has pain pump. tm6 14:10 Reassessment: No changes from previously documented assessment. tm6 14:45 Reassessment: Reassessment: report faxed to [facility], confirmed by Mariann. tm6 Vital Signs: 11:18 BP 150 / 56; Pulse 66; Resp 19; Temp 99.3; Weight 90.72 kg; Height 5 ft. 11 in. ; Pain ap3 8/10; 11:25 Pulse Ox 90% on R/A; tm6 11:30 Pulse Ox 99% on 2 lpm NC; tm6 12:35 BP 130 / 64; Pulse 60; Pulse Ox 98% on 1 lpm NC; tm6 14:09 BP 145 / 66; Pulse 59; Pulse Ox 98% on 2 lpm NC; tm6 11:18 Body Mass Index 27.89 (90.72 kg, 180.34 cm) ap3 11:18 Pain Scale: Adult ap3 ED Course: 10:57 Patient arrived in ED. mr 11:02 Jaret Cedillo MD is Attending Physician. rt 11:20 Triage completed. ap3 11:25 Benoit Ann, RN is Primary Nurse. tm6 11:25 EKG done, by ED staff, reviewed by Jaret Cedillo MD. tm6 11:30 Arm band placed on right wrist. tm6 11:32 Patient has correct armband on for positive identification. Bed in low position. Call tm6 light in reach. Side rails up X2. Provided Education on: use of call keane. Client placed on continuous cardiac and pulse oximetry monitoring. NIBP monitoring applied. night monitor on. Pulse ox on. NIBP on. Door closed. Noise minimized. Warm blanket given. Pillow given. 11:40 Inserted saline lock: 20 gauge in left forearm, using aseptic technique. Blood tm6 collected. Flushed with 10 mL NS. 11:40 Basic Metabolic Panel Sent. tm6 11:40 CBC with Diff Sent. tm6 11:40 LFT's Sent. tm6 11:40 Magnesium Sent. tm6 11:40 NT PRO-BNP Sent. tm6 11:40 Troponin HS Sent. tm6 11:41 XRAY Chest (1 view) In Process Unspecified. EDMS 13:04 Assisted with urinal. tm6 13:42 Ld La is Hospitalizing Provider. rt 14:04 1404 CM met with at the bedside in the ED exam room. Patient identified by ane name and . Demographic sheet confirmed. Patient reports he lives with his daughter Candice in a 2 story home though he reports living on the first floor only. DME in the home includes a couple canes, a wheelchair, shower chair, crutches and a rollator. Patient reports using the rollator most of the time. No MPOA in place at this time. No HH, home oxygen, or medical services at this time. prefers to discharge home. He goes on to explain that his daughter drives him to doctor appointments, grocery store trips and will be able to transport him home when he is discharged. CM team will continue to follow and coordinate care. 14:24 Chest Angio In Process Unspecified. EDMS 15:20 No provider procedures requiring assistance completed. Patient admitted, IV remains in tm6 place. Administered Medications: 11:48 Drug: Furosemide IVP 40 mg IVP once; give over 2 minutes Route: IVP; Site: left forearm;tm6 12:30 Follow up: Response: No adverse reaction tm6 13:03 Drug: LevaQUIN IVPB 750 mg IVPB once Route: IVPB; Site: left forearm; tm6 15:17 Follow up: Response: No adverse reaction; IV Status: Completed infusion; IV Intake: tm6 250ml Medication: 11:32 VIS not applicable for this client. tm6 Intake: 15:17 IV: 250ml; Total: 250ml. tm6 Output: 15:17 Urine: 1100ml (Voided); Total: 1100ml. tm6 Outcome: 13:44 Decision to Hospitalize by Provider. rt 15:20 Admitted to Med/surg accompanied by tech, via wheelchair, with oxygen, with chart, tm6 15:20 Condition: stable 15:20 Instructed on the need for admit, 15:29 Patient left the ED. eb Signatures: Dispatcher [employer] EDOH KaurMaribell, Reg Reg mr AgustindianeMoraima RN RN [id number] Claribel Salinas eb Jaret Cedillo MD MD rt Benoit Ann RN RN tm6 Mimi Arevalo RN RN ane
--- NOTE | 2024-05-30 13:45 | EDPHYS ---
Physician Documentation [facility] Name: Evin Saba Age: 83 yrs Sex: Male : 1940 Arrival Date: 05/30/2024 Time: 10:54 Bed 5 Private MD: ED Physician Jaret Cedillo HPI: 05/30 11:45 This 83 yrs old Male presents to ER via Wheelchair with complaints of Shortness Of rt Breath, Weakness. 11:45 [facility]. Patient has rt swelling to the bilateral legs, reports of dyspnea, worse when he lies flat, worse when he walks. States that his diuretics and appoint with me as well. Denies other acute complaints at this time, symptoms are moderate in severity, no other aggravating or alleviating factors.. Historical: - Allergies: 13:08 PENICILLINS; tm6 - PMHx: 13:08 coronary atherosclerosis; Diabetes - NIDDM; Hypertension; Congestive heart failure; tm6 - PSHx: 13:08 back; hip; Left; tm6 - Immunization history:: Adult Immunizations up to date. - Infectious Disease History:: Denies. - Family history:: not pertinent. - Social history:: Smoking status: Patient denies any tobacco usage or history of. ROS: 11:45 Constitutional: Negative for fever, chills, and weight loss, Abdomen/GI: Negative for rt abdominal pain, nausea, vomiting, diarrhea, and constipation, MS/Extremity: Negative for injury and deformity, Skin: Negative for injury, rash, and discoloration, Neuro: Negative for headache, weakness, numbness, tingling, and seizure, 11:45 Cardiovascular: Positive for edema, Negative for chest pain, 11:45 Respiratory: Positive for cough, shortness of breath, Exam: 11:45 Constitutional: This is a well developed, well nourished patient who is awake, alert, rt and in no acute distress. Head/Face: Normocephalic, atraumatic. Chest/axilla: Normal chest wall appearance and motion. Nontender with no deformity. No lesions are appreciated. Cardiovascular: Regular rate and rhythm with a normal S1 and S2. No gallops, murmurs, or rubs. Normal PMI, no JVD. No pulse deficits. Abdomen/GI: Soft, non-tender, with normal bowel sounds. No distension or tympany. No guarding or rebound. No evidence of tenderness throughout. Skin: Warm, dry with normal turgor. Normal color with no rashes, no lesions, and no evidence of cellulitis. Neuro: Awake and alert, GCS 15, oriented to person, place, time, and situation. Cranial nerves II-XII grossly intact. Motor strength 5/5 in all extremities. Sensory grossly intact. Cerebellar exam normal. Normal gait. 11:45 ECG was reviewed by the Attending Physician. 11:45 Respiratory: Bibasilar crackles, no respiratory distress, 11:45 Musculoskeletal/extremity: 4+ pitting bilateral extremity edema. Vital Signs: 11:18 BP 150 / 56; Pulse 66; Resp 19; Temp 99.3; Weight 90.72 kg; Height 5 ft. 11 in. ; Pain ap3 8/10; 11:25 Pulse Ox 90% on R/A; tm6 11:30 Pulse Ox 99% on 2 lpm NC; tm6 12:35 BP 130 / 64; Pulse 60; Pulse Ox 98% on 1 lpm NC; tm6 14:09 BP 145 / 66; Pulse 59; Pulse Ox 98% on 2 lpm NC; tm6 11:18 Body Mass Index 27.89 (90.72 kg, 180.34 cm) ap3 11:18 Pain Scale: Adult ap3 MDM: 11:11 Patient medically screened. rt 15:09 Differential diagnosis: Pneumonia, CHF. Antibiotic administration: Data reviewed: vital rt signs, nurses notes, lab test result(s), EKG, radiologic studies. Consideration of Admission/Observation Patient was admitted/placed on observation. Management of patient was discussed with the following: Hospitalist: Agrees to admit. Independent interpretation of the following test(s) in the Emergency Department X-Ray: My interpretation is Left lower lobe consolidation seen on monitor potation of x-ray images, pulmonary edema seen as well.. Test considered but Not performed: CT: Do not suspect pulmonary embolus, CT angiogram not indicated. Care significantly affected by the following chronic conditions: Congestive Heart Failure. Counseling: I had a detailed discussion with the patient and/or guardian regarding the historical points, exam findings, and any diagnostic results supporting the discharge/admit diagnosis, lab results, radiology results, the need for further work-up and treatment in the hospital. Response to treatment: the patient's symptoms have mildly improved after treatment. 05/30 11:20 Order name: Basic Metabolic Panel; Complete Time: 12:15 rt 05/30 11:20 Order name: CBC with Diff; Complete Time: 12:15 rt 05/30 11:20 Order name: LFT's; Complete Time: 12:15 rt 05/30 11:20 Order name: Magnesium; Complete Time: 12:15 rt 05/30 11:20 Order name: NT PRO-BNP; Complete Time: 12:15 rt 05/30 11:20 Order name: Troponin HS; Complete Time: 12:15 rt 05/30 11:20 Order name: XRAY Chest (1 view); Complete Time: 12:26 rt 05/30 14:12 Order name: Chest Angio; Complete Time: 15:27 EDMS 05/30 14:14 Order name: Echo with Doppler EDMS 05/30 11:20 Order name: Cardiac monitoring; Complete Time: 11:30 rt 05/30 11:20 Order name: EKG - Nurse/Tech; Complete Time: 11:30 rt 05/30 11:20 Order name: IV Saline Lock; Complete Time: 11:40 rt 05/30 11:20 Order name: Labs collected and sent; Complete Time: 11:40 rt 05/30 11:20 Order name: O2 Per Protocol; Complete Time: 11:30 rt 05/30 11:20 Order name: O2 Sat Monitoring; Complete Time: 11:30 rt EC:45 Rate is 63 beats/min. Rhythm is regular, Normal Sinus Rhythm with Occasional PVCs, rt LAFB. Left axis deviation noted. MI interval is normal. QRS interval is normal. QT interval is normal. No Q waves. Interpreted by me. Administered Medications: 11:48 Drug: Furosemide IVP 40 mg IVP once; give over 2 minutes Route: IVP; Site: left forearm;tm6 12:30 Follow up: Response: No adverse reaction tm6 13:03 Drug: LevaQUIN IVPB 750 mg IVPB once Route: IVPB; Site: left forearm; tm6 15:17 Follow up: Response: No adverse reaction; IV Status: Completed infusion; IV Intake: tm6 250ml Disposition Summary: 05/30/24 13:44 Hospitalization Ordered Notes: Hospitalization Status: Inpatient Admission rt Provider: Ld La rt Location: Telemetry/MedSurg (Inpatient) rt Condition: Stable rt Problem: new rt Symptoms: are unchanged rt Bed/Room Type: Standard rt Room Assignment: 232(05/30/24 14:28) eb Diagnosis - Systolic (congestive) heart failure rt - Unspecified bacterial pneumonia rt Forms: - Medication Reconciliation Form rt - SBAR form rt - Leadership Thank You Letter rt Signatures: Dispatcher [employer] EDMS Claribel Salinas eb Jaret Cedillo MD MD rt Benoit Ann RN RN tm6 Corrections: (The following items were deleted from the chart) 11:20 11:20 BASIC METABOLIC PANEL+C.LAB.BRZ ordered. EDMS EDMS 11:20 11:20 CBC+H.LAB.BRZ ordered. EDMS EDMS 11:20 11:20 HEPATIC FUNCTION+C.LAB.BRZ ordered. EDMS EDMS 11:20 11:20 MAGNESIUM+C.LAB.BRZ ordered. EDMS EDMS 11:20 11:20 PROBNP+C.LAB.BRZ ordered. EDMS EDMS 11:20 11:20 Troponin High Sensitivity+C.LAB.BRZ ordered. EDMS EDMS 11:20 11:20 Chest Single View+RAD.RAD.BRZ ordered. EDMS EDMS 14:28 13:44 rt eb
--- NOTE | 2024-05-30 14:08 | P.HP ---
Certification for Inpatient Patient admitted to: Inpatient With expected LOS: <2 Midnights <Huma Marquez - Last Filed: 05/30/24 15:33> Patient History Date of Service: 05/30/24 Reason for admission: NSTEMI History of Present Illness: 83-year-old male with a past medical history of COPD, hypertension, diabetes, congestive heart failure, [id number] diabetes, presents to the emergency room with shortness of breath. He reports associated bilateral leg swelling. He reports shortness of breath worse with exertion, worse while laying flat, he denies chest pain, abdominal pain, nausea vomiting diarrhea, fever. Plan to admit for NSTEMI, acute on chronic heart failure, acute hypoxic respiratory failure from diastolic heart failure, bacterial pneumonia, on telemetry, IV antibiotics, diuretics, with cardiology to consult ER evaluation 90% on room air, blood pressure 150/56, EKG s 63 beats/min. Rhythm is regular, Normal Sinus Rhythm with Occasional PVCs, rt LAFB. Left axis deviation noted. KS interval is normal. QRS interval is normal. QT interval is normal, was treated with 40 mg of Lasix, Levaquin 750, - Past Medical/Surgical History -: DM -: CAD -: Atherosclerosis -: Back surgery -: Hip surgery - Social History Alcohol use: No CD- Drugs: No Caffeine use: Yes <Huma Marquez - Last Filed: 05/30/24 15:33> Date of Service: 05/30/24 <Efrain Doyle - Last Filed: 06/02/24 03:25> Allergies Penicillins Allergy (Verified 05/05/23 06:18) Hives/Rash Home Medications: Atorvastatin Calcium [Lipitor*] 0.5 tab PO DAILY 05/05/23 Carboxymethylcellulose Sodium [Lubricant Eye Drop] 1 drop OP PRN PRN 05/05/23 Cyanocobalamin (Vitamin B-12) [Vitamin B-12] 1 tab PO DAILY 05/05/23 Gabapentin 2 tab PO BEDTIME 05/05/23 Hydralazine [Apresoline*] 1 tab PO BEDTIME 05/05/23 Hydralazine [Apresoline*] 2 tab PO DAILY WITH BREAKFAST 05/05/23 Lisinopril [Zestril] 1 tab PO BID 05/05/23 Metoprolol Succinate [Toprol Xl*] 2 tab PO DAILY 05/05/23 Omeprazole 1 cap PO BID 05/05/23 Albuterol Inhaler [Ventolin Inhaler*] 1 puff PO QID PRN 05/30/24 Aspirin Chewable [Aspirin Chewable*] 1 tab PO DAILY 05/30/24 Levothyroxine [Synthroid*] 0.05 mg PO DAILY 05/30/24 Metformin HCl 1,000 mg PO BID 05/30/24 Morphine *Extended Release* [MS Contin*] 1 tab PO BEDTIME 05/30/24 Multivitamin 1 each PO DAILY 05/30/24 Review of Systems per HPI <Huma Marquez - Last Filed: 05/30/24 15:33> Physical Examination - Physical Exam General: Alert, Oriented x3, Mild distress HEENT: Normocephalic, PERRLA Neck: 2+ carotid pulse no bruit, JVD not distended Respiratory: Diminished, Crackles/rales Cardiovascular: Normal pulses, Regular rate/rhythm, Edema (lower extremity) Capillary refill: <2 Seconds Gastrointestinal: Normal bowel sounds, Soft and benign Musculoskeletal: No swelling, No contractures Integumentary: No breakdown, No significant lesion Neurological: Normal speech, Normal strength at 5/5 x4 extr, Sensation intact - Studies Laboratory Data (last 24 hrs) 05/30/24 05/30/24 11:38 11:38 WBC 10.20 Hgb 8.9 L Hct 28.0 L Plt Count 247 Sodium 133 L Potassium 5.1 BUN 18 Creatinine 1.30 Glucose 167 H Magnesium 1.7 Total Bilirubin 0.3 AST 24 ALT 21 Alkaline Phosphatase 61 <Huma Marquez - Last Filed: 05/30/24 15:33> Assessment and Plan - Plan Assessment plan Acute on chronic heart failure unknown baseline Elevated BNP Extremity edema Hypertension Hyperlipidemia Cardiology consult, telemetry Echo ordered, diuretics, Resume home meds R evaluation 90% on room air, blood pressure 150/56, EKG s 63 beats/min. Rhythm is regular, Normal Sinus Rhythm with Occasional PVCs, rt LAFB. Left axis deviation noted. KS interval is normal. QRS interval is normal. QT interval is normal, was treated with IV Lasix, IV Levaquin Acute hypoxic respiratory failure secondary to decompensated heart failure versus pneumonia Left lung base bacterial pneumonia COPD CT significant area of solid lung consolidation left lung base measuring - approximately 7 x 7 cm- CT of the chest no evidence of PE pulmonary consulted to eval O2 2 L keep sats greater than 92% IV antibiotics, nebs, History of falls PT eval Chronic pain As needed analgesia Chronic c onstipation PRNs stool softener Diabetes [id number]-[id number] Accu-Cheks, sliding scale insulin Full code DVT SCDs Diet cardiac Disposition pending hospital course E Discharge Plan: Home - Advance Directives Does patient have a Living Will: No Does patient have a Durable POA for Healthcare: No - Code Status/Comfort Care Code Status: Full Code Critical Care: No Time Spent Managing Pts Care (In Minutes): 55 <Huma Marquez - Last Filed: 05/30/24 15:33> Date of Service: 05/30/24 Patient was seen and examined. Events of the last 24 hours have been noted. Spoke with with ARIS regarding patient's clinical picture after evaluating and examining the patient independently. I performed a substantial part of the MDM during this patient's care today. I personally made or approved the documented management plan and acknowledge its risk of complications. I agree with the findings and documentation provided in the ARIS's notes. Patient with fluid overload. Patient diuresed and patient will be admitted for acute CHF exacerbation. Continue monitoring volume status and repeat chest x- ray. <Efrain Doyle - Last Filed: 06/02/24 03:25>
--- NOTE | 2024-05-30 14:32 | RAD REPORT ---
EXAM DESCRIPTION: CT - Chest Angio - 05/30/2024 2:22 pm CLINICAL HISTORY: Chest pain. elevaed troponin COMPARISON: Chest Single View dated 05/30/2024; Chest Single View dated 05/06/2023 TECHNIQUE: CT angiogram of the pulmonary arteries was performed with MIP. All CT scans are performed using dose optimization technique as appropriate and may include automated exposure control or mA/KV adjustment according to patient size. FINDINGS: No evidence of pulmonary thromboembolism. No acute aortic finding demonstrated. Prominent COPD. There is a significant area of solid lung consolidation left lung base measuring appr oximately 7 x 7 cm. There is a loculated small left pleural effusion. Trace right pleural effusion. Enlarged lymph nodes are present in the mediastinum and both hilar regions. No concerning bony finding. IMPRESSION: No evidence of pulmonary thromboembolism. Consolidated lung in the left lung base without air bronchograms with loculated left pleural effusion as detailed. This could be neoplastic in etiology. Bronchoscopy would be recommended for further zhang luation. Trace right pleural effusion. Enlarged lymphadenopathy in the mediastinum and hilar regions bilaterally. COPD.
[2024-05-30] MEDS ORDERED: ACETAMINOPHEN 500 MG TAB PO PRN (15:08)
[2024-05-30] MEDS ORDERED: ONDANSETRON 4 MG/2 ML VIAL IV PRN (15:08)
[2024-05-30] MEDS ORDERED: MORPHINE 4 MG/ML SYR IV PRN (15:12)
[2024-05-30] MEDS: LEVALBUTEROL 0.63 MG/3 ML NEB NEB ONE (15:29)
[2024-05-30] MEDS: IPRATROPIUM BROM 0.5MG/2.5ML NEB ONE (15:29)
--- NOTE | 2024-05-30 15:40 | P.CNS ---
Date of Consult: 05/30/24 Chief Complaint: NSTEMI History of Present Illness: Patient with PMH of HTN, Heart failure, carotid artery stenting, presented with worsening SOB and BLE for the last week, has been taking lasix for the last couple days, denies chest pain, no palpitations, no syncope, he usually follow ups with [facility] (Dr. Henao). Allergies Penicillins Allergy (Verified 05/05/23 06:18) Hives/Rash Home medications list reviewed: Yes Home Medications: Amlodipine [Norvasc*] 2 tab PO DAILY 05/05/23 Atorvastatin Calcium [Lipitor*] 0.5 tab PO DAILY 05/05/23 Carboxymethylcellulose Sodium [Lubricant Eye Drop] 1 drop OP PRN PRN 05/05/23 Cyanocobalamin (Vitamin B-12) [Vitamin B-12] 1 tab PO DAILY 05/05/23 Gabapentin 1 tab PO BEDTIME 05/05/23 Hydralazine [Apresoline*] 1 tab PO BEDTIME 05/05/23 Hydralazine [Apresoline*] 2 tab PO DAILY WITH BREAKFAST 05/05/23 Hydromorphone [Dilaudid*] 1 tab PO DAILY 05/05/23 Lisinopril [Zestril] 1 tab PO BID 05/05/23 Metoprolol Succinate [Toprol Xl*] 1 tab PO DAILY 05/05/23 Omeprazole 1 tab PO BID 05/05/23 terbinafine HCL [Terbinafine HCl] 1 tab PO DAILY 05/05/23 Levothyroxine [Synthroid*] 0.05 mg PO DAILYAC #30 tab 05/07/23 - Past Medical/Surgical History -: DM -: CAD -: Atherosclerosis -: Back surgery -: Hip surgery - Social History Smoking Status: Former smoker Alcohol use: No CD- Drugs: No Caffeine use: Yes Review of Systems 10-point ROS is otherwise unremarkable Physical Examination General: Alert, In no apparent distress HEENT: Atraumatic, PERRLA, Mucous membr. moist/pink, EOMI, Sclerae nonicteric Neck: Supple, 2+ carotid pulse no bruit, No LAD, Without JVD or thyroid abnormality Respiratory: Diminished, Crackles/rales Cardiovascular: Regular rate/rhythm, Normal S1 S2, Edema (+3 bilateral lower extremities) Gastrointestinal: Normal bowel sounds, No tenderness Musculoskeletal: No tenderness Integumentary: No rashes Neurological: Normal gait, Normal speech, Normal tone, Normal affect Lymphatics: No axilla or inguinal lymphadenopathy Laboratory Data (last 24 hrs) 05/30/24 05/30/24 11:38 11:38 WBC 10.20 Hgb 8.9 L Hct 28.0 L Plt Count 247 Sodium 133 L Potassium 5.1 BUN 18 Creatinine 1.30 Glucose 167 H Magnesium 1.7 Total Bilirubin 0.3 AST 24 ALT 21 Alkaline Phosphatase 61 - Problems (1) Acute heart failure Current Visit: Yes Status: Acute Plan: unsure about EF, patient is NYHA 4, with bilateral +3 llower extremities edema, Lasix 60 mg IV Q8 hours Monitor input and output monitor and correct electrolytes hold lisinopril get Echo (2) Elevated troponin Current Visit: No Status: Acute Plan: most likely type 2 [place] from acute CHF, Continue to trend cardiac enzymes get echo ASA 81 mg daily Lipitor 40 mg daily (3) Hypertension Current Visit: No Status: Acute Plan: D/C metoprolol Start Coreg 6.25 mg po BID and uptitrate as tolerated.
[2024-05-30] MEDS: BISACODYL E.C. 5 MG TAB PO ONE (16:24)
[2024-05-30] MEDS: ENOXAPARIN 100 MG/ML SYR SQ SCH (16:24)
[2024-05-30] MEDS: GABAPENTIN 300 MG CAP PO SCH (16:24)
[2024-05-30] MEDS: carvediloL 6.25 MG TAB PO SCH (16:24)
[2024-05-30] MEDS: FUROSEMIDE 40 MG/4 ML VIAL IV SCH (16:25)
[2024-05-30] MEDS: INSULIN REGULAR (HUMAN) 100 UNIT/ML SQ SCH (16:39)
[2024-05-30] MEDS ORDERED: FUROSEMIDE 40 MG/4 ML VIAL IV SCH (17:00)
[2024-05-30] MEDS ORDERED: METOPROLOL TAR 25 MG TAB PO SCH (18:00)
[2024-05-30 19:02] LABS: Sqamous Epithelial None Seen /HPF (None Seen); Urine Bacteria None Seen /HPF (<20); Urine Bilirubin NEGATIVE (Negative); Urine Blood Negative (Negative); Urine Clarity Clear (Clear); Urine Color Colorless (Yellow); Urine Culture Reflex Order NOT NEEDED; Urine Glucose NEGATIVE (Negative); Urine Ketones NEGATIVE (Negative); Urine Microscopic Reflex YN ORDER UMIC; Urine Nitrite NEGATIVE (Negative); Urine Protein TRACE (Negative); Urine RBC <5 /HPF (None Seen); Urine Urobilinogen Normal (Normal); Urine WBC <5 /HPF (<5); Urine Yeast (Budding) Trace /HPF (None Seen); Urine pH 6.5 (5.0-7.0)
[2024-05-30] MEDS: ATORVASTATIN 40 MG TAB PO SCH (20:25)
[2024-05-30] MEDS: ALPRAZOLAM 0.25 MG TABLET PO PRN (20:25)
[2024-05-31] MEDS ORDERED: ALBUTEROL 2.5 MG/3 ML NEB SOL NEB PRN (06:49)
[2024-05-31] MEDS ORDERED: IPRATROPIUM BROM 0.5MG/2.5ML NEB PRN (06:50)
[2024-05-31] MEDS ORDERED: HYDROCODONE/APAP 5/325 MG TAB PO PRN (06:53)
[2024-05-31 07:53] LABS: Absolute Basophils 0.1 K/uL (0-0.5); Absolute Eosinophils 0.1 K/uL (0-0.5); Absolute Lymphocytes (CBC) 1.3 K/uL (0.7-4.9); Absolute Neutrophil 5.1 K/uL (1.8-8.0); Basophils % 1.3 % (0-1.3); Eosinophils % 1.7 % (0-4.4); Hematocrit 29.4 % (39.6-49.0); Hemoglobin 9.5 g/dL (13.6-17.9); Lymphocytes % 17.5 % (15.3-44.8); MCH 30.1 pg (27.0-35.0); MCHC 32.1 g/dL (32.0-36.0); MCV 93.7 fL (80-100); MPV 7.9 fL (7.6-11.3); Monocytes % 12.9 % (3.3-12.3); Neutrophils % 66.6 % (41.7-73.7); Platelets 235 thou/uL (152-406); RBC Red Blood Cell Count 3.14 M/uL (4.33-5.43); Red Cell Distribution Width 14.2 % (12.1-15.2)
[2024-05-31 08:14] LABS: Anion Gap 4.5 mEq/L (5.0-15.0); Magnesium 1.6 mg/dL (1.6-2.4); Potassium 4.5 mEq/L (3.5-5.1)
[2024-05-31] MEDS: PANTOPRAZOLE 40MG TABLET PO SCH (09:22)
--- NOTE | 2024-05-31 10:46 | P.CNS ---
Date of Consult: 05/31/24 Reason for Consult: Left-sided pleural effusion Chief Complaint: Pleural effusion left-sided chest pain History of Present Illness: Patient is 83 years of age very pleasant man very active at baseline apparently had fallen recently on his left side hurt his left chest started complaining of worsening dyspnea increasing chest discomfort and it appeared in the hospital in addition patient also complained of enlargement of his scrotum and worsening lower extremity edema feeling a little better and is on home oxygen chest x-ray shows a pleural effusion may be loculated on the left side with possible atelectasis denies any fever chills any productive cough Allergies Penicillins Allergy (Verified 05/05/23 06:18) Hives/Rash Home Medications: Atorvastatin Calcium [Lipitor*] 0.5 tab PO DAILY 05/05/23 Carboxymethylcellulose Sodium [Lubricant Eye Drop] 1 drop OP PRN PRN 05/05/23 Cyanocobalamin (Vitamin B-12) [Vitamin B-12] 1 tab PO DAILY 05/05/23 Gabapentin 2 tab PO BEDTIME 05/05/23 Hydralazine [Apresoline*] 1 tab PO BEDTIME 05/05/23 Hydralazine [Apresoline*] 2 tab PO DAILY WITH BREAKFAST 05/05/23 Lisinopril [Zestril] 1 tab PO BID 05/05/23 Metoprolol Succinate [Toprol Xl*] 2 tab PO DAILY 05/05/23 Omeprazole 1 cap PO BID 05/05/23 Albuterol Inhaler [Ventolin Inhaler*] 1 puff PO QID PRN 05/30/24 Aspirin Chewable [Aspirin Chewable*] 1 tab PO DAILY 05/30/24 Levothyroxine [Synthroid*] 0.05 mg PO DAILY 05/30/24 Metformin HCl 1,000 mg PO BID 05/30/24 Morphine *Extended Release* [MS Contin*] 1 tab PO BEDTIME 05/30/24 Multivitamin 1 each PO DAILY 05/30/24 - Past Medical/Surgical History Diabetic: Yes -: DM -: CAD -: Atherosclerosis -: CHF -: Back surgery -: Hip surgery -: Has stents placed in his neck - Social History Smoking Status: Former smoker Alcohol use: No CD- Drugs: No Caffeine use: Yes Place of Residence: Home Review of Systems 10-point ROS is otherwise unremarkable Physical Examination Temp Pulse Resp BP Pulse Ox 97.7 F 62 18 163/67 H 98 05/31/24 08:00 05/31/24 08:00 05/31/24 08:00 05/31/24 08:00 05/31/24 08:00 General: Alert, Oriented x3 HEENT: Atraumatic Neck: Supple Respiratory: Diminished (Managed on the left side) Cardiovascular: Normal S1 S2, Edema (2+ edema) Gastrointestinal: Normal bowel sounds, Soft and benign, Non-distended Laboratory Data (last 24 hrs) 05/30/24 05/30/24 11:38 11:38 WBC 10.20 Hgb 8.9 L Hct 28.0 L Plt Count 247 Sodium 133 L Potassium 5.1 BUN 18 Creatinine 1.30 Glucose 167 H Magnesium 1.7 Total Bilirubin 0.3 AST 24 ALT 21 Alkaline Phosphatase 61 - Problems (1) Pleural effusion Current Visit: Yes Status: Acute Plan: Patient is 83 years of age admitted with a recent fall left-sided chest discomfort he appears to have a loculated pleural effusion on the left side only some atelectasis or pneumonia is any fever or chills there is no white count pa boydnt seems to be improving has never smoked have underlying chronic renal failure x-ray CT scan reviewed his vital signs are stable troponins were mildly elevated echocardiogram done in April 2023 shows normal left ventricular ejection fraction is improving continue with Lasix incentive spirometry room air pulse ox DC antibiotics ambulate add low-dose spironolactone renal function continue to monitor needed thoracentesis
[2024-05-31] MEDS: SPIRONOLACTONE 25 MG TABLET PO SCH (11:41)
--- NOTE | 2024-05-31 13:52 | EKG ---
Test Date: 2024-05-30 Test Time: 21:18:59 Instrument Maker: REYNA MEASUREMENT RESULTS: Intervals: Rate: 67 [place]: QRSD: 152 QT: 464 QTc: 490 [place]: P: [place]: QRS: 106 T: -63 INTERPRETIVE STATEMENTS: Normal sinus rhythm Right bundle branch block Cannot rule out Inferior infarct, age undetermined Anterior infarct, age undetermined T wave abnormality, consider lateral ischemia Abnormal ECG Compared to ECG 05/05/2023 00:32:54 Uncertain supraventricular rhythm now present Right bundle-branch block now present Myocardial infarct finding now present T-wave abnormality now present Possible ischemia now present Electronically Signed On 05-31-24 13:52:07 CDT by Pantera Maurice
--- NOTE | 2024-05-31 14:00 | P.PN ---
Subjective Date of Service: 05/31/24 Chief Complaint: Pleural effusion left-sided chest pain Subjective: No new changes, No C/O voiced, Tolerating diet, Ambulating, Improving Review of Systems 10-point ROS is otherwise unremarkable Physical Examination - Vital Signs Temperature: 98.0 F Blood Pressure: 130/63 Pulse: 66 Respirations: 16 Pulse Ox (%): 100 - Physical Exam General: Alert, In no apparent distress HEENT: Atraumatic, PERRLA, EOMI Neck: Supple, JVD not distended Respiratory: Clear to auscultation bilaterally, Normal air movement Cardiovascular: Regular rate/rhythm, Normal S1 S2, Edema Gastrointestinal: Normal bowel sounds, No tenderness Musculoskeletal: No tenderness Integumentary: No rashes Neurological: Normal speech, Normal tone, Normal affect Lymphatics: No axilla or inguinal lymphadenopathy - Studies Medications List Reviewed: Yes Assessment And Plan - Current Problems (Diagnosis) (1) Acute heart failure Current Visit: Yes Status: Acute Plan: unsure about EF, patient is NYHA 4, with bilateral +3 llower extremities edema, Lasix 60 mg IV Q8 hours Monitor input and output monitor and correct electrolytes hold lisinopril get Echo (2) Elevated troponin Current Visit: No Status: Acute Plan: most likely type 2 [place] from acute CHF, Continue to trend cardiac enzymes get echo ASA 81 mg daily Lipitor 40 mg daily (3) Hypertension Current Visit: No Status: Acute Plan: D/C metoprolol Coreg 6.25 mg po BID and uptitrate as tolerated.
--- NOTE | 2024-05-31 15:07 | P.PN ---
Date of Service: 05/31/24 subjective Breathing improved, 93% on 2 L no reported chest Review of Systems per HPI Physical Examination - Physical Exam General: Alert, Oriented x3, Mild distress HEENT: Normocephalic, PERRLA Neck: 2+ carotid pulse no bruit, JVD not distended Respiratory: Diminished, Crackles/rales Cardiovascular: Normal pulses, Regular rate/rhythm, +3 Edema (lower extremity) Capillary refill: <2 Seconds Gastrointestinal: Normal bowel sounds, Soft and benign Musculoskeletal: No swelling, No contractures Integumentary: No breakdown, No significant lesion Neurological: Normal speech, Normal strength at 5/5 x4 extr, Sensation intact Assessment and Plan - Plan Assessment plan Acute on chronic heart failure unknown baseline NSTEMI type II Elevated BNP Extremity edema Hypertension Hyperlipidemia Cardiology consult, telemetry Echo ordered, aggressive diuresis -close renal monitoring Resume home meds 90% on room air, blood pressure 150/56, EKG s 63 beats/min. Rhythm is regular, Normal Sinus Rhythm with Occasional PVCs, rt LAFB. Left axis deviation noted. [place] interval is normal. QRS interval is normal. QT interval is normal, was treated with DC metoprolol start Coreg 6.25 twice daily Continue aspirin, 81 mg, Lipitor 40 mg Acute hypoxic respiratory failure secondary to decompensated heart failure versus pneumonia Left lung base bacterial pneumonia COPD CT significant area of solid lung consolidation left lung base measuring - approximately 7 x 7 cm- CT of the chest no evidence of PE pulmonary consulted to eval O2 2 L keep sats greater than 92% IV antibiotics, nebs, History of falls PT eval Chronic pain As needed analgesia Chronic c onstipation PRNs stool softener Diabetes [id number] Accu-Cheks, sliding scale insulin Full code DVT SCDs Diet cardiac Time spent with patient 25-minute Disposition pending hospital course <Huma Marquez - Last Filed: 05/31/24 15:02> Patient was seen and examined. Events of the last 24 hours have been noted. Spoke with with [facility] regarding patient's clinical picture after evaluating and examining the patient independently. I performed a substantial part of the MDM during this patient's care today. I personally made or approved the documented management plan and acknowledge its risk of complications. I agree with the findings and documentation provided in the ARIS's notes. Patient with fluid overload. Patient diuresed and patient will be admitted for acute CHF exacerbation. Continue monitoring volume status and repeat chest x- ray. Continue with antibiotic therapy. Continue monitoring labs. Clinically doing much better. Patient output is greater than 5 L. <Efrain Doyle - Last Filed: 06/02/24 03:26>
[2024-05-31] MEDS: ALBUMIN HUMAN 25% 12.5 GM, FUROSEMIDE 100 MG in NA CHLORIDE 0.9% 40 ML IV SCH (16:42)
[2024-05-31 17:57] VITALS: BMI 27.3
--- NOTE | 2024-05-31 18:49 | RAD REPORT ---
EXAM DESCRIPTION: RAD - Chest Lateral Decubitus - 05/31/2024 6:40 pm CLINICAL HISTORY: Left sided pleural effusion COMPARISON: Chest Single View dated 05/30/2024; Chest Angio dated 05/30/2024 FINDINGS: Left pleural effusion is present measuring up to 4.6 cm in greatest thickness. Mild locula tion suspected. No significant right-sided effusion.
[2024-06-01 07:24] LABS: Absolute Basophils 0.1 K/uL (0-0.5); Absolute Eosinophils 0.2 K/uL (0-0.5); Absolute Lymphocytes (CBC) 1.4 K/uL (0.7-4.9); Absolute Monocytes 1.1 K/uL (0.1-1.3); Absolute Neutrophil 5.3 K/uL (1.8-8.0); Basophils % 0.9 % (0-1.3); Eosinophils % 2.1 % (0-4.4); Hematocrit 28.4 % (39.6-49.0); Hemoglobin 9.1 g/dL (13.6-17.9); Lymphocytes % 17.6 % (15.3-44.8); MCH 29.5 pg (27.0-35.0); MCV 92.3 fL (80-100); MPV 8.2 fL (7.6-11.3); Monocytes % 13.3 % (3.3-12.3); Neutrophils % 66.1 % (41.7-73.7); Nucleated RBC Absolute Count 0.3 (0-0); Nucleated Red Blood Cells % 3.3 % (0-0); Platelets 207 thou/uL (152-406); RBC Red Blood Cell Count 3.08 M/uL (4.33-5.43); Red Cell Distribution Width 13.7 % (12.1-15.2)
[2024-06-01 07:43] LABS: Anion Gap 7.2 mEq/L (5.0-15.0); Magnesium 1.6 mg/dL (1.6-2.4); Potassium 4.2 mEq/L (3.5-5.1)
--- NOTE | 2024-06-01 07:58 | P.PN ---
Date of Service: 06/01/24 subjective Breathing improved, 93% on 2 L no reported chest Shortness of breath, chest pain improved admitted for NSTEMI Review of Systems per HPI Physical Examination - Physical Exam General: Alert, Oriented x3, no acute distress noted HEENT: Normocephalic, PERRLA Neck: 2+ carotid pulse no bruit, JVD not distended Respiratory: Diminished, Crackles/rales, unlabored Cardiovascular: Normal pulses, Regular rate/rhythm, Edema (lower extremity) Capillary refill: <2 Seconds Gastrointestinal: Normal bowel sounds, Soft and benign Musculoskeletal: No swelling, No contractures Integumentary: No breakdown, No significant lesion Neurological: Normal speech, Normal strength at 5/5 x4 extr, Sensation intact Assessment and Plan - Plan Assessment plan Acute on chronic heart failure unknown baseline NSTEMI type II Elevated BNP Extremity edema Hypertension Hyperlipidemia Cardiology consult, telemetry Echo ordered, aggressive diuresis -close renal monitoring Resume home meds 90% on room air, blood pressure 150/56, EKG s 63 beats/min. Rhythm is regular, Normal Sinus Rhythm with Occasional PVCs, rt LAFB. Left axis deviation noted. [place] interval is normal. QRS interval is normal. QT interval is normal, was treated with DC metoprolol start Coreg 6.25 twice daily Continue aspirin, 81 mg, Lipitor 40 mg Echo in the a.m. Acute hypoxic respiratory failure secondary to decompensated heart failure versus pneumonia Left lung base bacterial pneumonia COPD CT significant area of solid lung consolidation left lung base measuring - approximately 7 x 7 cm- CT of the chest no evidence of PE pulmonary consulted to eval O2 2 L keep sats greater than 92% IV antibiotics, nebs, History of falls PT eval Chronic pain As needed analgesia constipation PRNs stool softener Diabetes [id number] Accu-Cheks, sliding scale insulin Full code DVT SCDs Diet cardiac Time spent with patient 25 minute Disposition pending hospital course <Huma Mraquez - Last Filed: 06/01/24 15:37> Patient was seen and examined. Events of the last 24 hours have been noted. Spoke with with [facility] regarding patient's clinical picture after evaluating and examining the patient independently. I performed a substantial part of the MDM during this patient's care today. I personally made or approved the documented management plan and acknowledge its risk of complications. I agree with the findings and documentation provided in the [facility]'s notes. Patient with fluid overload. Patient is clinically doing much better. Patient greater than 7 L of urine output and 5 pound of fluid has been removed. Patient's feeling much better. Still having some chest discomfort. Will repeat chest x-ray today and anticipate discharge in the morning. Patient diuresed and patient will be admitted for acute CHF exacerbation. Continue monitoring volume status and repeat chest x-ray. Continue with pain meds <Efrain Doyle - Last Filed: 06/02/24 03:32>
[2024-06-01 08:05] LABS: Differential Total Cells Count 100; Eosinophils 5 % (0-3); Lymphocytes 21 % (15-42); Monocytes 13 % (0-10); Segmented Neutrophils 60 % (40-80)
[2024-06-01 08:06] LABS: Blood Morphology Comment NOTED (NOT SEEN); Hypochromasia 1+; Platelet Estimate ADEQ
--- NOTE | 2024-06-01 09:42 | RAD REPORT ---
EX[facility] DES[facility] 6[facility] am CLINICAL HISTORY: pneumonia COMPARISON: Chest Single View dated 05/30/2024; Chest Single View dated 05/06/2023; Chest Single View dated 05/04/2023; Chest Single View dated 04/26/2023hest Single View dated 05/30/2024; Chest Single Vie w dated 05/06/2023; Chest Single View dated 05/04/2023; Chest Single View dated 04/26/2023 TECHNIQUE: Portable AP view of the chest. FINDINGS: Persistent patchy left basilar airspace opacity with suggestion of small effusion which ma y be improving. No pneumothorax or right-sided effusion. The cardiomediastinal contours are unremark able. IMPRESSION: Patchy left basilar airspace opacity persists. Small left effusion, may be improving sin ce the prior exam.
[2024-06-01] MEDS: MAGNESIUM SULFATE 1 gm IVPB 1 GM/100 ML BAG IV ONE (10:13)
[2024-06-01] MEDS ORDERED: Levofloxacin 750mg IV 750 MG/150 ML BAG IV SCH (13:00)
--- NOTE | 2024-06-01 15:08 | P.PN ---
Subjective Date of Service: 06/01/24 Chief Complaint: Pleural effusion left-sided chest pain Subjective: No new changes, No C/O voiced, Tolerating diet, Ambulating, Improving Review of Systems 10-point ROS is otherwise unremarkable Physical Examination - Vital Signs Temperature: 98.3 F Blood Pressure: 152/55 Pulse: 60 Respirations: 16 Pulse Ox (%): 92 - Physical Exam General: Alert, In no apparent distress HEENT: Atraumatic, PERRLA, EOMI Neck: Supple, JVD not distended Respiratory: Diminished, Crackles/rales Cardiovascular: Regular rate/rhythm, Normal S1 S2, Edema Gastrointestinal: Normal bowel sounds, No tenderness Musculoskeletal: No tenderness Integumentary: No rashes Neurological: Normal speech, Normal tone, Normal affect Lymphatics: No axilla or inguinal lymphadenopathy - Studies Medications List Reviewed: Yes Assessment And Plan - Current Problems (Diagnosis) (1) Acute heart failure Current Visit: Yes Status: Acute Plan: unsure about EF, patient is NYHA 4, with bilateral +3 llower extremities edema, Lasix 60 mg IV Q8 hours Monitor input and output monitor and correct electrolytes hold lisinopril get Echo (2) Elevated troponin Current Visit: No Status: Acute Plan: most likely type 2 [place] from acute CHF, Continue to trend cardiac enzymes get echo ASA 81 mg daily Lipitor 40 mg daily (3) Hypertension Current Visit: No Status: Acute Plan: D/C metoprolol Increase Coreg to 12.5 mg po BID and uptitrate as tolerated.
[2024-06-02] MEDS: METHYLPREDNISOLONE 125 MG INJ IV SCH (05:00)
[2024-06-02 05:41] LABS: Absolute Basophils 0.1 K/uL (0-0.5); Absolute Eosinophils 0.2 K/uL (0-0.5); Absolute Lymphocytes (CBC) 1.7 K/uL (0.7-4.9); Absolute Monocytes 1.1 K/uL (0.1-1.3); Absolute Neutrophil 5.4 K/uL (1.8-8.0); Basophils % 0.9 % (0-1.3); Eosinophils % 1.8 % (0-4.4); Hematocrit 31.2 % (39.6-49.0); Lymphocytes % 20.2 % (15.3-44.8); MCH 29.4 pg (27.0-35.0); MCHC 32.1 g/dL (32.0-36.0); MCV 91.8 fL (80-100); MPV 8.4 fL (7.6-11.3); Neutrophils % 64.1 % (41.7-73.7); Platelets 230 thou/uL (152-406); Red Cell Distribution Width 13.6 % (12.1-15.2)
[2024-06-02 06:02] LABS: Anion Gap 5.1 mEq/L (5.0-15.0); Magnesium 1.7 mg/dL (1.6-2.4); Potassium 4.1 mEq/L (3.5-5.1)
[2024-06-02] MEDS: MAGNESIUM SULFATE 1 gm IVPB 1 GM/100 ML BAG IV ONE ×2 (06:26→10:17)
--- NOTE | 2024-06-02 09:51 | P.PN ---
Subjective Date of Service: 06/02/24 Chief Complaint: Pleural effusion left-sided chest pain Subjective: No new changes, No C/O voiced, Tolerating diet, Ambulating, Improving Review of Systems 10-point ROS is otherwise unremarkable Physical Examination - Vital Signs Temperature: 97.9 F Blood Pressure: 133/55 Pulse: 65 Respirations: 16 Pulse Ox (%): 92 - Physical Exam General: Alert, In no apparent distress HEENT: Atraumatic, PERRLA, EOMI Neck: Supple, JVD not distended Respiratory: Clear to auscultation bilaterally, Normal air movement Cardiovascular: Regular rate/rhythm, Normal S1 S2 Gastrointestinal: Normal bowel sounds, No tenderness Musculoskeletal: No tenderness Integumentary: No rashes Neurological: Normal speech, Normal tone, Normal affect Lymphatics: No axilla or inguinal lymphadenopathy - Studies Medications List Reviewed: Yes Assessment And Plan - Current Problems (Diagnosis) (1) Acute heart failure Current Visit: Yes Status: Acute Plan: unsure about EF, patient is NYHA 4, with bilateral +3 llower extremities edema, Lasix 60 mg IV Q8 hours Monitor input and output monitor and correct electrolytes hold lisinopril get Echo (2) Elevated troponin Current Visit: No Status: Acute Plan: most likely type 2 [place] from acute CHF, Continue to trend cardiac enzymes get echo ASA 81 mg daily Lipitor 40 mg daily (3) Hypertension Current Visit: No Status: Acute Plan: D/C metoprolol Increase Coreg to 12.5 mg po BID and uptitrate as tolerated.
--- NOTE | 2024-06-02 12:06 | P.PN ---
Subjective Date of Service: 06/02/24 Chief Complaint: Pleural effusion left-sided chest pain Subjective: Improving (Patient is improving chest discomfort and shortness of breath have improved) Review of Systems General: Weakness Respiratory: Shortness of Breath Physical Examination - Vital Signs Temperature: 97.9 F Blood Pressure: 133/55 Pulse: 65 Respirations: 16 Pulse Ox (%): 92 - Physical Exam General: Alert, Oriented x3 Respiratory: Diminished (The left side) Gastrointestinal: Normal bowel sounds, Soft and benign - Studies Medications List Reviewed: Yes Assessment And Plan - Current Problems (Diagnosis) (1) Pleural effusion Current Visit: Yes Status: Acute Plan: Patient is 83 years of age admitted with a recent fall left-sided pleural effusion decubitus x-rays do show a left-sided pleural effusion the effusion does not appear to be loculated recommend thoracentesis he does have an infection only has underlying congestive heart failure can change to p.o. Lasix with low-dose spironolactone renal function is slightly worse for discharge
--- NOTE | 2024-06-02 12:10 | RAD REPORT ---
EXAM DESCRIPTION: RADChest Single View06/02/2024 10:02 am CLINICAL HISTORY: CHF COMPARISON: Chest Single View dated 06/01/2024; Chest Single View dated 05/30/2024; Chest Single View dated 05/06/2023; Chest Single View dated 05/04/2023 TECHNIQUE: Portable AP view of the chest. FINDINGS: Stable patchy left basilar airspace opacity with suggestion of small effusion. Right lung remains clear. No pneumothorax. The cardiomediastinal contours are unremarkable. IMPRESSION: Stable left basilar airspace opacity, concerning for pneumonia. .
--- NOTE | 2024-06-02 12:13 | RAD REPORT ---
EXAM DESCRIPTION: RAD - Ribs Left - 06/02/2024 10:02 am CLINICAL HISTORY: Rib fx COMPARISON: Chest Single View dated 06/02/2024 TECHNIQUE: Left ribs, 3 views. FINDINGS: Mild periosteal reaction near the costochondral junction of the left seventh rib, may sugg est a healing fracture. No other acute displaced rib fracture are evident. No aggressive rib lesion. No underlying pneumothorax, effusion, infiltrate or pulmonary contusion. IMPRESSION: Suggestion of a healing fracture near the left seventh rib costochondral junction.
--- NOTE | 2024-06-02 12:38 | EKG ---
Test Date: 2024-06-02 Test Time: 10:45:04 Machine Driller: SEPIDEH MEASUREMENT RESULTS: Intervals: Rate: 62 [place]: QRSD: 152 QT: 480 QTc: 487 [place]: P: [place]: QRS: 106 T: -60 INTERPRETIVE STATEMENTS: Normal sinus rhythm Rightward axis Nonspecific intraventricular block Cannot rule out Inferior infarct, age undetermined Abnormal ECG Compared to ECG 05/30/2024 21:18:59 Right-axis deviation now present Sinus rhythm no longer present Right bundle-branch block no longer present T-wave abnormality no longer present Possible ischemia no longer present Myocardial infarct finding still present Electronically Signed On 06-02-24 12:37:43 CDT by Pantera Maurice
--- NOTE | 2024-06-02 13:17 | P.PN ---
Subjective Date of Service: 06/02/24 Chief Complaint: Pleural effusion left-sided chest pain Pt is resting comfortably in bed while doing Echo. Pulm is recommending thoracentesis. Will repeat CXR tomorrow to see if the fluid collection is drainable by IR. Continue diuretic. No other complaints. Review of Systems General: Unremarkable Eyes: Unremarkable ENT: Unremarkable Respiratory: Unremarkable Cardiovascular: Unremarkable Gastrointestinal: Unremarkable Genitourinary: Unremarkable Musculoskeletal: Unremarkable Integumentary: Unremarkable Neurological: Unremarkable Lymphatics: Unremarkable Physical Examination - Vital Signs Temperature: 97.9 F Blood Pressure: 133/55 Pulse: 65 Respirations: 16 Pulse Ox (%): 92 - Physical Exam General: Alert, In no apparent distress, Oriented x3 HEENT: Atraumatic, Normocephalic, PERRLA Neck: Supple, 2+ carotid pulse no bruit Respiratory: Clear to auscultation bilaterally, Normal air movement Cardiovascular: No edema, Normal pulses, Regular rate/rhythm, Normal S1 S2 Capillary refill: <2 Seconds Gastrointestinal: Normal bowel sounds, Soft and benign, Non-distended Musculoskeletal: No clubbing, No swelling, No contractures Integumentary: No rashes, No breakdown, No significant lesion Neurological: Normal gait, Normal speech, Normal strength at 5/5 x4 extr Lymphatics: No axilla or inguinal lymphadenopathy - Studies Medications List Reviewed: Yes Assessment And Plan - Plan Acute on chronic heart failure unknown [place] [address]. Will continue lasix 60mg iv TID, strict I/O and daily weight. Pt juli trace leg edema. NSTEMI type II: Pt denies any chest pain. Will trend troponin. Continue coreg, aspirin, and f/u EKG Hypertension: Continue hoem med Hyperlipidemia: Statin. Acute hypoxic respiratory failure secondary to decompensated heart failure versus pneumonia. CT significant area of solid lung consolidation left lung base measuring -approximately 7 x 7 cm. CTA chest is negative for PE. Pulm is recommending Thoracentesis. Will f/u CXR in am to see if the fluid collection is drainable by IR. Left lung base bacterial pneumonia: Continue abx and f/u blood cx. COPD: Continue steroid, abx and duoneb History of falls: Continue PT. Chronic pain: continue prn pain med. Constipation: Continue prn stool softener Diabetes [id number]: Continue accuchek, SSI and ADA. diet. Code: Full code DVT ppx: SCDs Code: full
[2024-06-02 13:21] LABS: PT Prothrombin Time 11.6 SECONDS (9.4-12.5); PTT, Activated Partial Thromb 33.3 SECONDS (24.3-36.9); Protime INR 1.04
--- NOTE | 2024-06-03 07:13 | ECHO ---
HEIGHT: 5 ft 11 in WEIGHT: 195 lb 11.2 oz DATE OF STUDY: REFER DR: Huma Marquez 2-DIMENSIONAL: YES M.MODE: YES DOPPLER: YES COLOR FLOW: YES TDS: PORTABLE: YES DEFINITY: BUBBLE STUDY: DIAGNOSIS: ELEVATED BNP CARDIAC HISTORY: CATHERIZATION: NO SURGERY: NO PROSTHETIC VALVE: NO PACEMAKER: NO MEASUREMENTS (cm) DIASTOLIC (NORMALS) SYSTOLIC (NORMALS) IVSd 1.3 (0.6-1.2) LA Diam 3.5 (1.9-4.0) LVEF 40-45% LVIDd 4.5 (3.5-5.7) LVIDs 3.3 (2.0-3.5) %FS 27% LVPWd 1.3 (0.6-1.2) Ao Diam 3.5 (2.0-3.7) 2 DIMENSIONAL ASSESSMENT: RIGHT ATRIUM: NORMAL LEFT ATRIUM: NORMAL RIGHT VENTRICLE: NORMAL LEFT VENTRICLE: MILD LEFT VENTRICULAR HYPERTROPHY TRICUSPID VALVE: NORMAL MITRAL VALVE: MILD MITRAL REGURGITATION PULMONIC VALVE: NORMAL AORTIC VALVE: MILD AORTIC REGURGITATION PERICARDIAL EFFUSION: NONE AORTIC ROOT: NORMAL LEFT VENTRICULAR WALL MOTION: MILD GLOBAL HYPOKINESIS, APEX MODERATE HYPOKINESIS, PARADOXICAL SEPTAL MOTION DOPPLER/COLOR FLOW: GRADE I DIASTOLIC DYSFUNCTION COMMENTS: 1. MILD REDUCED LEFT VENTRICULAR SYSTOLIC FUNCTION, EJECTION FRACTION 40-45%, MILD GLOBAL HYPOKINESIS, APICAL SEGMENT MODERATE HYPOKINESIS 2. GRADE I DIASTOLIC DYSFUNCTION 3. LARGE PLEURAL EFFUSION TECHNOLOGIST: MARTHA SALINAS
[2024-06-03 09:03] VITALS: O2SAT 96
[2024-06-03 09:14] VITALS: BP 148/55; TEMP 97.7
[2024-06-03] MEDS: FUROSEMIDE 40 MG TABLET PO SCH (09:34)
--- NOTE | 2024-06-03 10:34 | P.PN ---
Subjective Date of Service: 06/03/24 Chief Complaint: Pleural effusion left-sided chest pain Subjective: No new changes, No C/O voiced, Tolerating diet, Ambulating, Improving Review of Systems 10-point ROS is otherwise unremarkable Physical Examination - Vital Signs Temperature: 97.7 F Blood Pressure: 148/55 Pulse: 63 Respirations: 16 Pulse Ox (%): 96 - Physical Exam General: Alert, In no apparent distress HEENT: Atraumatic, PERRLA, EOMI Neck: Supple, JVD not distended Respiratory: Clear to auscultation bilaterally, Normal air movement Cardiovascular: Regular rate/rhythm, Normal S1 S2, Edema Gastrointestinal: Normal bowel sounds, No tenderness Musculoskeletal: No tenderness Integumentary: No rashes Neurological: Normal speech, Normal tone, Normal affect Lymphatics: No axilla or inguinal lymphadenopathy - Studies Medications List Reviewed: Yes Assessment And Plan - Current Problems (Diagnosis) (1) Acute heart failure Current Visit: Yes Status: Acute Plan: Echo shows combined systolic and diastolic heart failure with elevated filling pressures, patient is NYHA 4, stage C, with bilateral +3 lower extremities edema, Lasix 60 mg IV Q8 hours Monitor input and output monitor and correct electrolytes hold lisinopril (2) Elevated troponin Current Visit: No Status: Acute Plan: most likely type 2 NE from acute CHF, Continue to trend cardiac enzymes ASA 81 mg daily Lipitor 40 mg daily (3) Hypertension Current Visit: No Status: Acute Plan: D/C metoprolol increase Coreg to 12.5 mg po BID and uptitrate as tolerated.
--- NOTE | 2024-06-03 12:02 | P.PN ---
Subjective Date of Service: 06/03/24 Chief Complaint: Pleural effusion left-sided chest pain Subjective: Improving (Is improving the left side is a little sore no fever or chills) Review of Systems Unremarkable Physical Examination - Vital Signs Temperature: 97.7 F Blood Pressure: 148/55 Pulse: 63 Respirations: 16 Pulse Ox (%): 96 - Physical Exam General: Alert, In no apparent distress Neck: Supple Respiratory: Diminished (Left side) Cardiovascular: No edema, Regular rate/rhythm - Studies Medications List Reviewed: Yes Assessment And Plan - Current Problems (Diagnosis) (1) Pleural effusion Current Visit: Yes Status: Acute Plan: Patient is 83 years of age admitted with left-sided pleural effusion is currently doing well for another x-ray possible thoracentesis patient is in negative fluid balance patient has a combined systolic and diastolic heart failure with left-sided pleural effusion on an echocardiogram with spironolactone and Lasix plan for discharge patient's edema has improved he feels much better condition satisfactory
--- NOTE | 2024-06-03 12:43 | EKG ---
Test Date: 2024-06-02 Test Time: 10:48:30 Cash Room Clerk: LOVELY MEASUREMENT RESULTS: Intervals: Rate: 64 MT: QRSD: 152 QT: 484 QTc: 499 [place]: P: MT: QRS: 106 T: -59 INTERPRETIVE STATEMENTS: Sinus rhythm with frequent PVCs Rightward axis Nonspecific intraventricular block Cannot rule out Inferior infarct, age undetermined Abnormal ECG Electronically Signed On 06-03-24 12:40:00 CDT by Pantera Maurice
--- NOTE | 2024-06-03 12:47 | EKG ---
Test Date: 2024-05-30 Test Time: 11:21:22 Transitions Rn Care Coordinator: BRENDA MEASUREMENT RESULTS: Intervals: Rate: 63 PA: 186 QRSD: 120 QT: 428 QTc: 437 [place]: P: 113 PA: 186 QRS: -58 T: 44 INTERPRETIVE STATEMENTS: Sinus rhythm with premature supraventricular complexes Left anterior fascicular block Abnormal ECG Compared to ECG 05/05/2023 00:32:54 First degree AV block no longer present Left ventricular hypertrophy no longer present Electronically Signed On 06-03-24 12:44:03 CDT by Pantera Maurice
[2024-06-03 13:47] LABS: Anion Gap 6.4 mEq/L (5.0-15.0); Potassium 5.4 mEq/L (3.5-5.1)
--- NOTE | 2024-06-03 14:19 | P.PN ---
Subjective Date of Service: 06/03/24 Chief Complaint: Pleural effusion left-sided chest pain Pt is resting comfortably in bed while doing Echo. Pulm is recommending thoracentesis. Will f/u repeat CXR to see if the fluid collection is drainable by IR. Continue diuretic. No other complaints. Review of Systems General: Unremarkable Eyes: Unremarkable ENT: Unremarkable Respiratory: Unremarkable Cardiovascular: Unremarkable Gastrointestinal: Unremarkable Genitourinary: Unremarkable Musculoskeletal: Unremarkable Integumentary: Unremarkable Neurological: Unremarkable Lymphatics: Unremarkable Physical Examination - Vital Signs Temperature: 97.7 F Blood Pressure: 148/55 Pulse: 63 Respirations: 16 Pulse Ox (%): 96 - Physical Exam General: Alert, In no apparent distress, Oriented x3 HEENT: Atraumatic, Normocephalic, PERRLA Neck: Supple, 2+ carotid pulse no bruit, JVD not distended Respiratory: Clear to auscultation bilaterally, Normal air movement, Diminished Cardiovascular: No edema, Normal pulses, Regular rate/rhythm Capillary refill: <2 Seconds Gastrointestinal: Normal bowel sounds, Soft and benign, Non-distended Musculoskeletal: No clubbing, No swelling, No contractures Integumentary: No rashes, No breakdown, No significant lesion Neurological: Normal gait, Normal speech, Normal strength at 5/5 x4 extr, Normal tone Lymphatics: No axilla or inguinal lymphadenopathy - Studies Medications List Reviewed: Yes Assessment And Plan - Plan Acute on chronic heart failure unknown [place] [address]. Will continue lasix 60mg iv TID, strict I/O and daily weight. Pt has trace leg edema. NSTEMI type II: Pt denies any chest pain. Will trend troponin. Continue coreg, aspirin, and f/u EKG Hypertension: Continue hoem med Hyperlipidemia: Statin. Acute hypoxic respiratory failure secondary to decompensated heart failure versus pneumonia. CT significant area of solid lung consolidation left lung base measuring -approximately 7 x 7 cm. CTA chest is negative for PE. Pulm is recommending Thoracentesis. Will f/u CXR to decide whether he needs thoracentesis by IR. Left lung base bacterial pneumonia: Continue abx and f/u blood cx. COPD: Continue steroid, abx and duoneb History of falls: Continue PT. Chronic pain: continue prn pain med. Constipation: Continue prn stool softener Diabetes [id number]: Continue accuchek, SSI and ADA. diet. Code: Full code DVT ppx: SCDs Code: full Dispo: Pending hospital course
--- NOTE | 2024-06-03 15:24 | P.DS ---
Admission Date: 05/30/24 Discharge Date: 06/03/24 Disposition: ROUTINE DISCHARGE Discharge Condition: GOOD Reason for Admission: Pleural effusion left-sided chest pain Brief History of Present Illness: 83-year-old male with a past medical history of COPD, hypertension, diabetes, congestive heart failure, dqe-nshuiih-vzncxudic diabetes, presents to the emergency room with shortness of breath. He reports associated bilateral leg swelling. He reports shortness of breath worse with exertion, worse while laying flat, he denies chest pain, abdominal pain, nausea vomiting diarrhea, fever. Plan to admit for NSTEMI, acute on chronic heart failure, acute hypoxic respiratory failure from diastolic heart failure, bacterial pneumonia, on telemetry, IV antibiotics, diuretics, with cardiology to consult. ER evaluation 90% on room air, blood pressure 150/56, EKG s 63 beats/min. Rhythm is regular, Normal Sinus Rhythm with Occasional PVCs, rt LAFB. Left axis deviation noted. [place] interval is normal. QRS interval is normal. QT interval is normal, was treated with 40 mg of Lasix, Levaquin 750, Hospital Course: Pt is an 83yo male with a past medical history of COPD, hypertension, diabetes, congestive heart failure, and mnr-gromwab-zkusobrof diabetes who presented with shortness of breath and bilateral leg swelling. On admission, lab studies showed elevated troponin. He was admitted for NSTEMI, acute on chronic heart failure, acute hypoxic respiratory failure from diastolic heart failure, bacterial pneumonia. We continued lasix, iv antibiotics, and consulted cardiology. Pt diuresed well. CT chest showed significant area of solid lung consolidation left lung base measuring -approximately 7 x 7 cm. CTA chest was negative for PE. Echo showed EF 40 - 45% and large left pleural effusion and Pulm recommended thoracentesis. CXR did not show any pleural effusion. Gear Tooth Grinding Machine Operator canceled the thoracentesis and advised pt to follow up on outpt. We continued home med for other chronic medical problems. Pt was in NAD prior to discharge. Vital Signs/Physical Exam: Temp Pulse Resp BP Pulse Ox 97.7 F 63 16 148/55 H 96 06/03/24 14:19 06/03/24 14:19 06/03/24 14:19 06/03/24 14:19 06/03/24 14:19 Laboratory Data at Discharge: WBC 8.40 thou/uL (4.3-10.9) 06/02/24 05:12 Hgb 10.0 g/dL (13.6-17.9) L D 06/02/24 05:12 Hct 31.2 % (39.6-49.0) L 06/02/24 05:12 Plt Count 230 thou/uL (152-406) 06/02/24 05:12 PT 11.6 SECONDS (9.4-12.5) 06/02/24 13:00 INR 1.04 06/02/24 13:00 APTT 33.3 SECONDS (24.3-36.9) 06/02/24 13:00 Sodium 135 mEq/L (136-145) L 06/03/24 13:18 Potassium 5.4 mEq/L (3.5-5.1) H 06/03/24 13:18 BUN 26 mg/dL (7-18) H 06/03/24 13:18 Creatinine 1.53 mg/dL (0.70-1.30) H 06/03/24 13:18 Glucose 198 mg/dL (74-106) H 06/03/24 13:18 Magnesium 1.7 mg/dL (1.6-2.4) 06/02/24 05:12 Total Bilirubin 0.3 mg/dL (0.2-1.0) 05/30/24 11:38 AST 24 U/L (15-37) 05/30/24 11:38 ALT 21 U/L (16-61) 05/30/24 11:38 Alkaline Phosphatase 61 U/L (45-117) 05/30/24 11:38 Triglycerides 80 mg/dL (<150) 05/31/24 07:42 Cholesterol 104 mg/dL (<200) 05/31/24 07:42 HDL Cholesterol 61 mg/dL (40-60) H 05/31/24 07:42 Cholesterol/HDL Ratio 1.70 05/31/24 07:42 Home Medications: Atorvastatin Calcium [Lipitor*] 0.5 tab PO DAILY 05/05/23 Carboxymethylcellulose Sodium [Lubricant Eye Drop] 1 drop OP PRN PRN 05/05/23 Cyanocobalamin (Vitamin B-12) [Vitamin B-12] 1 tab PO DAILY 05/05/23 Gabapentin 2 tab PO BEDTIME 05/05/23 Hydralazine [Apresoline*] 1 tab PO BEDTIME 05/05/23 Hydralazine [Apresoline*] 2 tab PO DAILY WITH BREAKFAST 05/05/23 Lisinopril [Zestril] 1 tab PO BID 05/05/23 Metoprolol Succinate [Toprol Xl*] 2 tab PO DAILY 05/05/23 Omeprazole 1 cap PO BID 05/05/23 Albuterol Inhaler [Ventolin Inhaler*] 1 puff PO QID PRN 05/30/24 Aspirin Chewable [Aspirin Chewable*] 1 tab PO DAILY 05/30/24 Levothyroxine [Synthroid*] 0.05 mg PO DAILY 05/30/24 Metformin HCl 1,000 mg PO BID 05/30/24 Morphine *Extended Release* [MS Contin*] 1 tab PO BEDTIME 05/30/24 Multivitamin 1 each PO DAILY 05/30/24 Furosemide [Lasix*] 40 mg PO BIDL #60 tab 06/02/24 Spironolactone [Aldactone*] 25 mg PO DAILY #30 tab 06/02/24 carvediloL [Coreg*] 6.25 mg PO BID #60 tab 06/02/24 predniSONE [Deltasone] 20 mg PO BID #11 tab 06/02/24 New Medications: Spironolactone [Aldactone*] 25 mg PO DAILY #30 tab carvediloL [Coreg*] 6.25 mg PO BID #60 tab Furosemide [Lasix*] 40 mg PO BIDL #60 tab predniSONE [Deltasone] 20 mg PO BID #11 tab Physician Discharge Instructions: -DC IV and DC home -Follow-up with PCP in 1 to 2 weeks -Follow-up with Cardiology in 1 to 2 weeks - Follow up with Pulmonology in 1 to 2 weeks -Please call Dr. Doyle at [phone] if any questions regarding hospital stay -Please call nursing station at [phone] if any nursing or medication questions -Return to the emergency room if symptoms worsen Diet: Low sodium (AHA) Activity: Fall precautions [facility]: [facility] [Primary Care Provider] - Costa Wayne MD [ACTIVE - CAN ADMIT] -
--- NOTE | 2024-06-03 16:29 | RAD REPORT ---
EXAM DESCRIPTION: Alyse Single View06/03/2024 3:07 pm CLINICAL HISTORY: Shortness breath COMPARISON: June 02, 2024 FINDINGS: No significant change since the prior exam. Left basilar opacity likely represents combina tion of small to moderate pleural effusion and atelectasis or mass The right lung appears clear. Heart remains enlarged
== END 2024-06-03 17:59 | disposition home or self-care (01) | DRG 280 ==
LOC: ER 10:54 → ERHOLD 14:20 → 2ND 14:46
PROVIDERS: ADMIT Hospitalist; ATTEND Hospitalist
DX: I11.0 Hypertensive heart disease with heart failure (principal); I50.33 Acute on chronic diastolic (congestive) heart failure; I21.A1 Myocardial infarction type 2; J15.9 Unspecified bacterial pneumonia; J96.01 Acute respiratory failure with hypoxia; J44.0 Chronic obstructive pulmonary disease with (acute) lower respiratory infection; E78.5 Hyperlipidemia, unspecified; K59.09 Other constipation; G89.29 Other chronic pain; E11.9 Type 2 diabetes mellitus without complications; I25.10 Atherosclerotic heart disease of native coronary artery without angina pectoris; R29.6 Repeated falls; Z88.0 Allergy status to penicillin; Z91.81 History of falling; Z79.82 Long term (current) use of aspirin; Z79.52 Long term (current) use of systemic steroids; Z79.890 Hormone replacement therapy; Z79.84 Long term (current) use of oral hypoglycemic drugs; Z79.899 Other long term (current) drug therapy; Z87.891 Personal history of nicotine dependence
CPT/HCPCS: 36415; 71045; 71046; 71275; 80048; 80061; 80076; 81001; 82947; 83735; 83880; 84484; 85025; 85610; 85730; 93005; 93306; 94760; 96365; 96366; 96375; 97112; 97116; 97161; 97530; 99285; J1650; J1940; J2919; J3475; P9047; Q9967

== ENCOUNTER 2025-07-06 19:03 | Emergency (ER) | payer OTHER ==
--- OUTSIDE RECORDS SUMMARY | 2025-07-06 19:09 | XMS REPORT | Continuity of Care Document ---
Author Name Unknown Address [address] [facility] [address] [place] [address] Organization [facility] [place] Address [address] [facility]. [address] [place] [address] Care Team Providers Care Geoscience Specialist Name Role Phone Anabel, [facility] Primary Car e Physician PAPA BOYD Attending Clinician Unavailable Papa Boyd MD Attending Clinician [phone] Doctor Unassigned, Brush Attending Clinician [facility] [place] RADIOLOGY Attending Clinician Unavailable Radiology Attending Clinician Unavailable Doctor Unassigned, Brush Attending Clinician [place] Herrera MD, Abdullahi Attending Clinician [phone] Papa Boyd MD Attending Clinician [phone] ANGEL PARSON Attending Clinician Unavailab Angel Penn MD Attending Clinician [phone] Pob, [facility] Main Attending Clinician UnavailTAMMY Aquino Attending Clinician Unavailable Jass Ya MD Attending Clinician [phone] JASS YA Attending Clinician Unavail able JASS YA Attending Clinician Unavail able PAPA BOYD Admitting Clinician Unavailable TAE LYNN Admitting Clinician Unavailable ANGEL PARSON Admitting Clinician UnavailAngel Zacarias MD Admitting Clinician [phone] Payers Payer Name Policy Type Policy Number Effective Date Expirati on Date Source Problems Condition Name Condition Details Condition Category Status Onset Date Resolution Date Last Treatment Date Treating Clinician Comments Source Leg edema Leg edema Disease Active 01-27 00:00: 00 [facility] Coronary artery disease involving [place] coronary artery of [place] heart without angina pectoris Coronary artery disease involving [place] coronary artery of [place] heart without angina pectoris Disease Active 01-27 00:00: 00 [facility] Ascending aorta dilatation Ascending aorta dilatation Disease Active 01-27 00:00: 00 [facility] Stenosis of left carotid artery Stenosis of left carotid artery Disease Active 01-27 00:00: 00 [facility] Preop cardiovasc ular exam Preop cardiovasc ular exam Disease Active 01-27 00:00: 00 [facility] Mixed hyperlipid emia Mixed hyperlipid emia Disease Active 10-17 00:00: 00 [facility] Primary hypertensi on Primary hypertensi on Disease Active 10-17 00:00: 00 [facility] No known active problems No known active problems Disease [facility] Allergies, Adverse Reactions, Alerts Allergy Name Allergy Type Status Severity Reaction(s) Onset Date Inactive Date Treating Clinician Comments Source PENICILL INS Drug Class Active Rash 05-25 00:00: 00 [facility] Penicill ins Propensi ty to adverse reaction s Active Rash 05-25 00:00: 00 [facility] Penicill ins Propensi ty to adverse reaction s Active Rash 05-25 00:00: 00 [facility] Penicill ins Propensi ty to adverse reaction s Active Rash 05-25 00:00: 00 [facility] Social History Social Habit Start Date Stop Date Quantity Comments Source [facility] Alcoholic beverage intake 2025-01-27 00:00:00 2025-01-27 00:00:00 Current drinker of alcohol (finding) [facility] History of Social function 2024-02-04 00:00:00 2024-02-04 00:00:00 [facility] Alcohol intake 2024-01-28 00:00:00 2024-01-28 00:00:00 Current drinker of alcohol (finding) [facility] Exposure to SARS-CoV-2 (event) 2022-10-27 00:00:00 2022-11-06 13:41:00 Not sure [facility] Alcohol Comment 2017-05-28 00:00:00 2017-05-28 00:00:00 occasional [facility] History of tobacco use 1988-05-28 00:00:00 2016-01-27 00:00:00 Cigarette Smoker [facility] Sex assigned at 1940 00:00:00 1940 00:00:00 [facility] Smoking Status Start Date Stop Date Source Ex-smoker 2025-01-27 00:00:00 2025-01-27 [facility] Ordered Medication Name Filled Medication Name Start Date Stop Date Current Medication? Ordering Clinician Indication Dosage Frequency Signature (SIG) Comments Components Source iopamidol (ISOVUE 370-500 mL) injection 106 mL 2023-10 21:15: 00 09-29 20:29 :00 No [id number] 106mL 106 mL, Intravenou s, ONCE, 1 dose, On Sun09/29/24 at 1515, Routine [facility] HYDROcodone -acetaminop hen (NORCO 5) 5-325 mg tablet 1 tablet 02-03 13:45: 00 02-03 13:40 :00 No 1{tbl} 1 tablet, Oral, ONCE, 1 dose, On Sun02/04/24 at 0845, Routine, PACU [facility] lactated ringers IV infusion 1,000 mL 02-03 13:45: 00 02-03 17:29 :23 No 1000mL at 100 mL/hr, 1,000 mL, IV Infusion, CONTINUOUS , Starting on Sun02/04/24 at 0845, Until Sun02/04/24 at 1229, Routine, PACU [facility] HYDROmorphO ne (DILAUDID) injection 0.2 mg 02-03 13:35: 17 02-03 17:29 :23 No .2mg 0.2 mg, Slow IV Push, Q5MIN PRN, 10 doses, Starting on Sun02/04/24 at 0835, Until Sun02/04/24 at 1229, Routine, Pain (scale 7-10), PACU
Us e approved by (Faculty): PACU USE -ANESTHESI A SERVICE-HY DROMORPHON E INJECTIONS [facility] FENTanyl PF (SUBLIMAZE (PF)) injection 25 mcg 02-03 13:35: 17 02-03 17:29 :23 No 25ug 25 mcg, Slow IV Push, Q5MIN PRN, 4 doses, Starting on Sun02/04/24 at 0835, Until Sun02/04/24 at 1229, Routine, Pain (scale 4-6), PACU [facility] ondansetron (ZOFRAN (PF)) injection 4 mg 02-03 13:35: 17 02-03 17:29 :23 No 4mg 4 mg, Slow IV Push, PRN, 1 dose, Starting on Sun02/04/24 at 0835, Until Sun02/04/24 at 1229, Routine, Nausea and Vomiting (N/V), PACU [facility] bupivacaine (preserv free) (SENSORCAIN E MPF) 0.25 % (2.5 mg/mL) injection 02-03 12:39: 00 02-03 13:18 :07 No PRN, Starting on Sun02/04/24 at 0739, Until Sun02/04/24 at 0818, Routine, Intra-op [facility] sodium chloride 0.9 % irrigation solution 02-03 12:30: 00 02-03 13:18 :07 No PRN, Starting on Sun02/04/24 at 0730, Until Sun02/04/24 at 0818, Intra-op [facility] lactated ringers IV infusion 1,000 mL 02-03 11:45: 00 02-03 12:05 :00 No 1000mL at 42 mL/hr, 1,000 mL, IV Infusion, ONCE, 1 dose, On Sun02/04/24 at 0645, Routine, DSU Pre-op [facility] aspirin 81 mg chewable tablet 02-03 10:29: 18 Yes 81mg Take 1 tablet by mouth in the morning. [facility] Bisacodyl 5 mg Tab 02-03 10:29: 18 Yes 1{tbl} Take 1 tablet by mouth 2 (two) times daily. [facility] docusate 100 mg capsule 02-03 10:29: 18 Yes 100mg Take 1 capsule by mouth in the morning and 1 capsule in the evening. [facility] MULTIVITAMI N ORAL 02-03 10:29: 18 Yes 1{tbl} Take 1 tablet by mouth daily. [facility] Cholecalcif reymundo, Vitamin D3, 10 mcg (400 unit) capsule 02-03 10:29: 18 Yes 400U Take 1 capsule by mouth in the morning. [facility] vitamin B-12 (VITAMIN B-12) 100 mcg tablet 02-03 10:29: 18 Yes 100ug Take 1 tablet by mouth in the morning. [facility] hydralAZINE 10 mg tablet 02-03 10:29: 18 Yes 10mg Take 1 tablet by mouth in the morning and 1 tablet in the evening. Indication s: 2 tabs in AM and 1 tab in PM [facility] lisinopril 20 mg tablet 02-03 10:29: 18 Yes 20mg Take 1 tablet by mouth in the morning and 1 tablet in the evening. [facility] omeprazole 20 mg capsule 02-03 10:29: 18 Yes 20mg Take 1 capsule by mouth in the morning. [facility] Carboxymeth ylcellulose -Glycern 0.5-0.9 % Drop 02-03 10:29: [address] in each eye. [facility] metoprolol tartrate 25 mg tablet 02-03 10:29: 18 04-24 00:00 :00 No 25mg Take 1 tablet by mouth in the morning. [facility] Cholecalcif reymundo, Vitamin D3, 10 mcg (400 unit) capsule 01-27 10:57: 31 Yes 400U Take 1 capsule by mouth in the morning. [facility] amLODIPine 5 mg tablet 01-27 00:00: 00 Yes [id number] 5mg Take 1 tablet by mouth in the morning. [facility] ticagrelor 90 mg tablet 10-17 14:21: 22 10-17 00:00 :00 No 90mg Take 90 mg by mouth 2 (two) times daily. [facility] nitroglycer in 0.4 mg sublingual tablet 10-17 00:00: [id number] 1 tablet under the tongue every 5 (five) minutes as needed for Chest pain. [facility] amLODIPine 5 mg tablet 10-17 00:00: 00 01-27 00:00 :00 No 10mg Take 2 tablets by mouth in the morning. [facility] insulin NPH 100 unit/mL injection 10-10 10:52: 44 10-10 00:00 :00 No 25U inject 25 Units under the skin every morning and evening. [facility] MULTIVITAMI N ORAL 10-10 09:19: 47 Yes 1{tbl} Take 1 tablet by mouth daily. [facility] Bisacodyl 5 mg Tab 10-10 09:19: 08 Yes 1{tbl} Take 1 tablet by mouth 2 (two) times daily. [facility] docusate 100 mg capsule 10-10 09:19: 08 Yes 100mg Take 1 capsule by mouth in the morning and 1 capsule in the evening. [facility] Cholecalcif reymundo, Vitamin D3, 10 mcg (400 unit) capsule 10-10 09:19: 08 Yes 1{capsu le} Take 1 capsule by mouth daily. [facility] hydralAZINE 10 mg tablet 10-10 09:19: 08 Yes 10mg Take 1 tablet by mouth in the morning and 1 tablet in the evening. Indication s: 2 tabs in AM and 1 tab in PM [facility] lisinopril 20 mg tablet 10-10 09:19: 08 Yes 20mg Take 1 tablet by mouth in the morning and 1 tablet in the evening. [facility] omeprazole 20 mg capsule 10-10 09:19: 08 Yes 20mg Take 1 capsule by mouth in the morning. [facility] Carboxymeth ylcellulose -Glycern 0.5-0.9 % Drop 10-10 09:19: [address] in each eye. [facility] gabapentin 300 mg capsule 10-10 00:00: 00 Yes [id number] 600mg Take 2 capsules by mouth at bedtime. [facility] amLODIPine 10 mg tablet 2021-10 00:00: 00 10-17 00:00 :00 No 10mg 10 mg. [facility] HYDROmorpho ne 4 mg tablet 2021-10 00:00: 00 Yes TAKE 1 TABLET BY MOUTH ONCE DAILY FOR 28 DAYS [facility] metFORMIN 1,000 mg tablet 2021-10 00:00: 00 Yes 1000mg Take 1 tablet by mouth in the morning and 1 tablet in the evening. Take with meals. [facility] atorvastati n 20 mg tablet 2021-10 00:00: 00 Yes 10mg 0.5 tablets. [facility] metoprolol succinate XL 25 mg 24 hr tablet 2021-10 00:00: 00 Yes 25mg 1 tablet. [facility] terbinafine HCL 250 mg tablet 2021-10 00:00: 00 Yes 250mg 1 tablet. [facility] gabapentin 300 mg capsule 2021-10 00:00: 00 10-10 00:00 :00 No 300mg 300 mg. [facility] albuterol-i pratropium 20-100 mcg/actuati on inhaler 04-07 00:00: 00 Yes INHALE 1 PUFF MOUTH FOUR TIMES A DAY NEEDED REPLACES COMBIVENT INHALER. USE ONLY ONE INHALATION PER DOSE [facility] aspirin 81 mg chewable tablet 05-28 12:36: 02 Yes 81mg Take 1 tablet by mouth in the morning. [facility] vitamin B-12 (VITAMIN B-12) 100 mcg tablet 05-28 12:36: 02 Yes 100ug Take 1 tablet by mouth in the morning. [facility] metoprolol tartrate 25 mg tablet 05-28 12:36: 02 Yes 25mg Take 1 tablet by mouth in the morning. [facility] Bisacodyl 5 mg Tab 05-28 12:36: 02 Yes 1{tbl} Take 1 tablet by mouth 2 (two) times daily. [facility] docusate 100 mg capsule 05-28 12:36: 02 Yes 100mg Take 100 mg by mouth 2 (two) times daily. [facility] MULTIVITAMI N ORAL 05-28 12:36: 02 Yes 1{tbl} Take 1 tablet by mouth daily. [facility] Cholecalcif reymundo, Vitamin D3, (VITAMIN D3) 400 unit capsule 05-28 12:36: 02 Yes 1{capsu le} Take 1 capsule by mouth daily. [facility] ticagrelor 90 mg tablet 05-28 12:36: 02 Yes 90mg Take 90 mg by mouth 2 (two) times daily. [facility] hydralAZINE 10 mg tablet 05-28 12:36: 02 Yes 10mg Take 10 mg by mouth 2 (two) times daily. Indication s: 2 tabs in AM and 1 tab in PM [facility] lisinopril 20 mg tablet 05-28 12:36: 02 Yes 20mg Take 20 mg by mouth 2 (two) times daily. [facility] omeprazole 20 mg capsule 05-28 12:36: 02 Yes 20mg Take 20 mg by mouth daily. [facility] insulin NPH 100 unit/mL injection 05-28 12:36: 02 Yes 25U inject 25 Units under the skin every morning and evening. [facility] Immunizations Ordered Immunization Name Filled Immunization Name Date Status Comments Source Influenza High Dose 2022-09-05 00:00:00 Completed [facility] Influenza High Dose 2022-09-05 00:00:00 Completed [facility] Influenza High Dose 2022-09-05 00:00:00 Completed [facility] Influenza High Dose 2022-09-05 00:00:00 Completed [facility] Influenza, High-Dose, Trivalent, PF (FLUZONE) 2022-09-05 00:00:00 Completed [facility] Influenza High Dose Unknown Completed [facility] Influenza High Dose Unknown Completed [facility] Influenza High Dose Unknown Completed [facility] Influenza High Dose Unknown Completed [facility] Influenza High Dose Unknown Completed [facility] Influenza High Dose Unknown Completed [facility] Influenza High Dose Unknown Completed [facility] Influenza High Dose Unknown Completed [facility] Influenza High Dose Unknown Completed [facility] Influenza High Dose Unknown Completed [facility] Influenza High Dose Unknown Completed [facility] Influenza High Dose Unknown Completed [facility] Influenza High Dose Unknown Completed [facility] Vital Signs Vital Name Observation Time Observation Value Comments S ource Systolic blood pressure 2025-01-27 16:20:00 142 mm[Hg] [facility] Diastolic blood pressure 2025-01-27 16:20:00 56 mm[Hg] [facility] Heart rate 2025-01-27 16:20:00 62 /min [facility] Respiratory rate 2025-01-27 16:11:00 17 /min [facility] Body height 2025-01-27 16:11:00 180.3 cm [facility] Body weight 2025-01-27 16:11:00 74.072 kg [facility] BMI 2025-01-27 16:11:00 22.78 kg/m2 [facility] Oxygen saturation in Arterial blood by Pulse oximetry 2025-01-27 16:11:00 93 /min [facility] Heart rate 2024-02-04 14:35:00 65 /min [facility] Respiratory rate 2024-02-04 14:35:00 13 /min [facility] Oxygen saturation in Arterial blood by Pulse oximetry 2024-02-04 14:35:00 97 /min [facility] Systolic blood pressure 2024-02-04 14:34:00 194 mm[Hg] [facility] Diastolic blood pressure 2024-02-04 14:34:00 55 mm[Hg] [facility] Body temperature 2024-02-04 13:18:00 36.44 Angelica [facility] Body height 2024-01-25 15:01:00 180.3 cm [facility] Body weight 2024-01-25 15:01:00 83.9 kg [facility] BMI 2024-01-25 15:01:00 25.81 kg/m2 [facility] Heart rate 2024-02-04 13:27:00 62 /min [facility] Respiratory rate 2024-02-04 13:27:00 18 /min [facility] Oxygen saturation in Arterial blood by Pulse oximetry 2024-02-04 13:27:00 100 /min [facility] Systolic blood pressure 2024-02-04 13:23:00 153 mm[Hg] [facility] Diastolic blood pressure 2024-02-04 13:23:00 53 mm[Hg] [facility] Body temperature 2024-02-04 13:18:00 36.44 Angelica [facility] Body height 2024-01-25 15:01:00 180.3 cm [facility] acute hospital Body weight 2024-01-25 15:01:00 83.9 kg [facility] acute hospital BMI 2024-01-25 15:01:00 25.81 kg/m2 [facility] Systolic blood pressure 2024-01-28 18:26:00 162 mm[Hg] [facility] Diastolic blood pressure 2024-01-28 18:26:00 62 mm[Hg] [facility] Heart rate 2024-01-28 18:26:00 64 /min [facility] Body temperature 2024-01-28 18:26:00 36.11 Angelica [facility] Respiratory rate 2024-01-28 18:26:00 19 /min [facility] Body weight 2024-01-28 18:26:00 81.375 kg [facility] acute hospital BMI 2024-01-28 18:26:00 25.02 kg/m2 [facility] Oxygen saturation in Arterial blood by Pulse oximetry 2024-01-28 18:26:00 95 /min [facility] Body height 2024-01-28 18:24:00 180.3 cm [facility] Systolic blood pressure 2022-10-17 20:10:00 160 mm[Hg] [facility] Diastolic blood pressure 2022-10-17 20:10:00 52 mm[Hg] [facility] Heart rate 2022-10-17 20:10:00 55 /min [facility] Respiratory rate 2022-10-17 20:02:00 22 /min [facility] Body height 2022-10-17 20:02:00 180.3 cm [facility] Body weight 2022-10-17 20:02:00 83.87 kg [facility] acute hospital BMI 2022-10-17 20:02:00 25.79 kg/m2 [facility] acute hospital Oxygen saturation in Arterial blood by Pulse oximetry 2022-10-17 20:02:00 97 /min [facility] Systolic blood pressure 2022-10-10 15:19:00 165 mm[Hg] [facility] Diastolic blood pressure 2022-10-10 15:19:00 54 mm[Hg] [facility] Heart rate 2022-10-10 15:19:00 57 /min [facility] Body height 2022-10-10 15:19:00 180.3 cm [facility] Body weight 2022-10-10 15:19:00 84.823 kg [facility] acute hospital BMI 2022-10-10 15:19:00 26.08 kg/m2 [facility] Oxygen saturation in Arterial blood by Pulse oximetry 2022-10-10 15:19:00 94 /min [facility] Procedures Procedure Date / Time Performed Performing Clinician Source TRANSTHORACIC ECHO (TTE) COMPLETE 2025-02-18 20:30:00 Papa Boyd [facility] CT ANGIOGRAM NECK 2024-09-29 20:27:09 Requisition, Pap er [facility] CAROTID DUPLEX BILATERAL - BY VASCULAR LAB 2024-04-22 20:20:35 Papa Boyd [facility] VENOUS REFLUX DUPLEX BILATERAL - BY VASCULAR LAB 2024-04-22 20:20:28 Papa Boyd [facility] REFERRAL- REQUEST/RESPONSE 2024-04-08 16:53:10 Doctor Unassigned, Brush [facility] INTRATHECAL INFUSION PUMP REVISION 2024-02-04 12:03:00 Angel Parson [facility] POCT GLUCOSE (AUTOMATED) 2024-02-04 11:53:00 Angel Parson [facility] POCT GLUCOSE (AUTOMATED) 2024-02-04 11:53:00 Angel Parson [facility] NON-UTMB ORDERS 2024-01-28 20:17:28 Doctor Unass igned, Brush [facility] NON-UTMB ORDERS 2024-01-28 20:17:17 Doctor Unass igned, Brush [facility] HB ECG ROUTINE & RHYTHM STRIP 2024-01-28 18:28:08 Papa Boyd [facility] NON-UTMB ORDERS 2024-01-24 20:18:27 Doctor Unass igned, Brush [facility] AUTHORIZATION FOR RELEASE OF PHI 2023-01-18 05:01:00 Doctor Unassigned, Brush [facility] ASSIGNMENT OF BENEFITS 2022-10-10 14:57:31 Docto r Unassigned, Brush [facility] Encounters Start Date/Time End Date/Time Encounter Type Admission Type Attending Clinicians Care Facility Care Department Encounter ID Source 2022-03-30 10:37:02 Outpatient [facility] [id number] [facility] 2025-02-19 00:00:00 2025-03-28 18:29:43 Patient Secure Msg Papa Boyd [facility] [id number] 350.1.13.10 4.2.7.2.686 [id number] [facility] 2025-02-18 14:43:27 2025-02-18 23:59:00 Outpatient R [facility] [id number] [facility] 2025-02-18 14:43:27 2025-02-18 23:59:00 Hospital Encounter R STEVEN BOYDMETHODIST [facility] 1.284.114 350.1.13.10 4.2.7.2.686 [id number] [facility] 2025-02-11 15:00:00 2025-02-11 15:00:00 Outpatient R [facility] [id number] [facility] 2025-01-27 11:00:00 2025-01-27 11:32:05 [id number] 2025-01-27 11:00:00 2025-01-27 11:32:[address] [facility] 1..114 350.1.13.10 4.2.7.2.686 [id number] [facility] 2024-04-08 00:00:00 2024-11-22 07:23:50 Orders Only Doctor Unassigned, Brush Doctor Unassigned, Brush [facility] [id number] 350.1.13.10 4.2.7.2.686 [id number] [facility] 2024-01-24 00:00:00 2024-11-22 02:16:48 Orders Only Doctor Unassigned, Brush Doctor Unassigned, Brush [facility] ([facility] [id number] 350.1.13.10 4.2.7.2.686 [id number] [facility] 2024-01-28 00:00:00 2024-11-22 02:14:43 Orders Only Doctor Unassigned, Brush Doctor Unassigned, Brush [facility] ([facility] [id number] 350.1.13.10 4.2.7.2.686 [id number] [facility] 2024-01-28 00:00:00 2024-11-22 02:14:42 Orders Only Doctor Unassigned, Brush Doctor Unassigned, Brush [facility] ([facility] [id number] 350.1.13.10 4.2.7.2.686 [id number] [facility] 2024-09-29 13:44:53 2024-09-29 23:59:00 Outpatient R RADIOLOGY [facility] [id number] [facility] 2024-09-29 13:44:53 2024-09-29 23:59:00 Hospital Encounter Radiology Radiology [facility] [id number] 350.1.13.10 4.2.7.2.686 [id number] [facility] 2024-05-30 00:00:00 2024-05-30 14:39:27 Telephone Papa Boyd [facility] [id number] 350.1.13.10 4.2.7.2.686 [id number] [facility] 2024-04-08 00:00:00 2024-05-10 18:20:22 Patient Secure Msg Doctor Unassigned, Brush [facility] 1.2.840.114 350.1.13.10 4.2.7.2.686 [id number] [facility] 2024-04-25 00:00:00 2024-04-28 11:17:31 Telephone Sharon [facility] [id number] 350.1.13.10 4.2.7.2.686 [id number] [facility] 2024-04-24 14:30:00 2024-04-24 15:47:[address] [facility] [id number] [facility] 2024-04-24 14:30:00 2024-04-24 15:47:56 Office Visit Sharon [facility] [id number] 350.1.13.10 4.2.7.2.686 [id number] [facility] 2024-04-22 14:23:29 2024-04-22 23:59:00 Hospital Encounter [facility] [facility] 1.2.840.114 350.1.13.10 4.2.7.2.686 [id number] [facility] 2024-04-22 14:00:00 2024-04-22 14:22:00 [facility] [id number] [facility] 2024-04-22 14:00:00 2024-04-22 14:22:00 Hospital Encounter Oliver [facility] 1.2.840.114 350.1.13.10 4.2.7.2.686 [id number] [facility] 2024-02-22 11:00:00 2024-02-22 11:00:00 [facility] [id number] [facility] 2024-02-04 06:38:00 2024-02-04 09:47:00 Outpatient R ANGEL PARSON [facility] ANS [id number] [facility] 2024-02-04 06:38:00 2024-02-04 09:47:00 Hospital Encounter Angel Parson [facility] 1.2.840.114 350.1.13.10 4.2.7.2.686 [id number] [facility] 2024-02-04 07:15:00 2024-02-04 08:27:00 Surgery Angel Parson [facility] 1.2.840.114 350.1.13.10 4.2.7.2.686 [id number] [facility] 2024-02-02 00:00:00 2024-02-02 00:00:00 Patient Secure Msg Doctor Unassigned, [facility] 1.2840.114 350.1.13.10 4.2.7.2.686 [id number] [facility] 2024-01-28 13:20:00 2024-01-28 13:49:47 [facility] [id number] [facility] 2024-01-28 13:20:00 2024-01-28 13:49:47 [facility] 1..114 350.1.13.10 4.2.7.2.686 [id number] [facility] 2024-01-28 12:15:00 2024-01-28 12:30:00 [employer] Worker Visit Pob, Adc Lab Main Angel Parson [facility] 1.0.114 350.1.13.10 4.2.7.2.686 [id number] [facility] 2024-01-21 00:00:00 2024-01-21 00:00:00 [facility] 1..114 350.1.13.10 4.2.7.2.686 [id number] [facility] 2023-01-19 00:00:00 2023-01-19 00:00:00 [facility] 1.284.114 350.1.13.10 4.2.7.2.686 [id number] [facility] 2023-01-18 00:00:00 2023-01-18 00:00:00 Orders Only Doctor Unassigned, [facility] 1..114 350.1.13.10 4.2.7.2.686 [id number] [facility] 2022-11-06 13:42:20 2022-11-06 23:59:00 Outpatient R [facility]IVER [facility] [id number] [facility] 2022-11-06 00:00:00 2022-11-06 00:00:00 Patient Secure Msg Oliver [facility] BUILDING 1.840.114 350.1.13.10 4.2.7.2.686 [id number] [facility] 2022-10-17 13:40:00 2022-10-17 14:29:53 Outpatient R [facility] [id number] [facility] 2022-10-17 13:40:00 2022-10-17 14:29:[address] [facility] BUILDING 1.840.114 350.1.13.10 4.2.7.2.686 [id number] [facility] 2022-10-10 09:20:00 2022-10-10 10:58:19 Office Visit Jass Ya [facility] 1.284.114 350.1.13.10 4.2.7.2.686 [id number] [facility] 2022-10-10 09:20:00 2022-10-10 10:58:19 Outpatient JASS MIRAMONTES [facility] [id number] [facility] 2022-10-10 00:00:00 2022-10-10 00:00:00 Orders Only Doctor Unassigned, Brush [facility] 1.2.840.114 350.1.13.10 4.2.7.2.686 [id number] [facility] 2017-05-28 06:42:00 2017-05-28 11:25:00 Outpatient ANGEL GOODWIN [facility] CLAU [id number] [facility] Results Test Description Test Time Test Comments Results Result Co mments Source [facility] [id number] 22:35:07CT ANGIOGRAM NECK HISTORY: 84 years-old; Male; CTA neck for carotid artery disease. TECHNIQUE: CTA of the neck with coronal, sagittal reformats, and MIPSreconstruction was performed. COMPARISON: ?None FINDINGS: Aortic arch and arch vessel origins: Brachiocephalic artery shares a commonorigin with the left common carotid artery. The left vertebral arteryarises directly from the aortic arch. Moderate atheroscleroticcalcification of the aortic arch noted. The ostia of the great neck vesselsare free of significant stenosis. Innominate and subclavian arteries: Innominate and subclavian arteries arepatent with normal course. Common and internal cervical carotids: Atherosclerotic calcification of thebilateral common carotid arteries and carotid bulbs resulting in at least70% stenosis on the leftcervical ICA ostium by Nascet criteria. Mild tomoderate luminal narrowing of the right cervical ICA. Vertebral arteries: the vertebral arteries originate normally from thesubclavian arteries. The right vertebral artery is dominant and patentalong the course. Scattered calcification at the V1 segment with nosignificant stenosis. 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 Reconstitution at the V3 segment likely due tooccipital collaterals. Cervical soft tissues: Unremarkable. Lung apices: Unremarkable. Cervical spine: No acute bony abnormality.. [facility]- REQUEST/[id number] 16:53:10 Ordered by an unspecified provider.[facility] GLUCOSE (AUTOMATED)2024-02-04 11:56:53* Test Item Value Reference Range Interpretation Comme [facility] POCT GLU (test code = [id number]) 168 mg/dL 70-110 H Lab Interpretation (test cod e = [id number]) Abnormal [facility] GLUCOSE (AUTOMATED)2024-02-04 11:56:53* Test Item Value Reference Range Interpretation Comme [facility] POCT GLU (test code = [id number]) 168 mg/dL 70-110 H Lab Interpretation (test cod e = [id number]) Abnormal [facility] [id number] 20:17:28Ordered by an unspecified provider.[facility] ORDERS 2024-01-28 20:17:17Ordered by an unspecified provider.[facility] [id number] 20:18:27Ordered by an unspecified provider.[facility] Notes Date/Time Note Provider Source 2024-05-30 14:35:28 Spoke with daughter. Transfer is not necessary. [facility] can reach out to Dr. Boyd or our clinic if they need information on her fathers history. We can request copies of any testing performed at [facility]. Daughter verbalized understanding. Tiffanie Chávez RN [facility] - Health 2024-05-30 14:17:58 Chelsey Saba is a 83 year old male daughter calling to speak with Dr. Boyd, patient is currently at [facility] for admission due to Congestive Heart Failure and Pneumonia, wanting to know if patient needs to be transferred to [facility]. Please call [phone] Heydi Jacobs [facility] 2024-04-25 14:00:12 Copied from [facility] #[id number]. 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 Pt states he forgot to tell the nurse two of the medications that he was on : albuterol-ipratropium 20-100 mcg/actuation inhaler atorvastatin 20 mg tablet Arden Pyle [facility] 2024-01-28 13:55:19 Cardiac Clearance request form signed by Dr. Boyd and faxed back to [facility] and scanned into chart along with fax confirmation. Annia Wahl MA [facility] 2024-01-28 13:20:00 Addended by: PAPA BOYD MD on: 04/11/2024 11:00 AM Modules accepted: Orders T [facility] 2024-01-28 13:20:00 Addended by: PAPA BOYD MD on: 04/22/2024 09:56 PM Modules accepted: Orders T [facility] 2024-01-28 12:15:00 Images from the original note were not included. Venipuncture collection performed by clean technique on the left anticubitus. Total of 1 attempts were made. Slight pressure and a bandage/dressing were applied to the site(s). The patient experienced no complications. The following specimens were processed according to instructions and sent to [facility] laboratories per lab order on 01/28/2024: LT BLUE SST RED LAV 1 PPT DK GREEN (LiHep) DK GREEN (SodH) ALCOCER DK BLUE (K2) DK BLUE (S) ACD Blood Culture NIPT/NTD [facility] 2024-01-28 11:05:36 Images from the original note were not included. Your procedure is at [facility] on 02/04/24. The address is [address] [place] [address], [address]. [facility] nursing staff will call you the workday [...] voiced no further questions at this time. [facility] 2024-01-24 10:54:33 Cardiac Clearance request received via fax from [facility], patient's last O/V was 10/17/2022 and will need an appt., clinic notified. Form scanned into chart. Notified clinic and stated patient stated he would call today to try to get a sooner appt due to pain pump will be out in February. Notified Cardio PSS to help assist patient getting a sooner appt. Annia Wahl MA [facility] 2024-01-21 16:07:46 Cardiac Clearance request received via fax from [facility], patient's last O/V was 10/17/2022 and will need an appt., clinic notified. Form scanned into chart. Annia Wahl MA [facility]
[2025-07-06] MEDS ORDERED: NA CHLORIDE 0.9% 1,000 ML ONE (19:32)
[2025-07-06] MEDS ORDERED: FAMOTIDINE 20 MG/2 ML VIAL IV ONE (19:32)
[2025-07-06 19:34] LABS: Absolute Lymphocytes (CBC) 1.9 K/uL (0.7-4.9); Hematocrit 34.9 % (39.6-49.0); Hemoglobin 11.2 g/dL (13.6-17.9); MCH 27.8 pg (27.0-35.0); MCHC 32.0 g/dL (32.0-36.0); MCV 86.7 fL (80-100); MPV 8.7 fL (7.6-11.3); Nucleated RBC Absolute Count 0.0 (0-0); Nucleated Red Blood Cells % 0.0 % (0-0); RBC Red Blood Cell Count 4.03 M/uL (4.33-5.43); White Blood Count 10.50 thou/uL (4.3-10.9)
[2025-07-06 19:40] LABS: PT Prothrombin Time 12.8 SECONDS (10-13.0); Protime INR 1.14
[2025-07-06 20:11] LABS: Sqamous Epithelial <5 /HPF (None Seen); Urine Culture Reflex Order NOT NEEDED; Urine Microscopic Reflex YN ORDER UMIC
[2025-07-06 20:11] LABS: ALT/SGPT < 14 U/L (16-61); AST/SGOT 16 U/L (15-37); Albumin 1.8 g/dL (3.4-5.0); Albumin/Globulin Ratio 0.3 (1.1-1.8); Alkaline Phosphatase 63 U/L (45-117); Anion Gap 7.6 mEq/L (5.0-15.0); BUN Blood Urea Nitrogen 42 mg/dL (7-18); Bilirubin Indirect, Calculated 0.2 mg/dL (0.2-0.8); Globulin 5.2 g/dL (2.3-3.5); Glucose Level 139 mg/dL (74-106); Lipase 6 U/L (13-75); Magnesium 1.8 mg/dL (1.6-2.4); NT PRO-BNP 42606 pg/mL (<450); Potassium 5.6 mEq/L (3.5-5.1)
[2025-07-06 20:13] LABS: Troponin High Sensitivity 80.3 pg/mL (<58.9)
--- NOTE | 2025-07-06 20:32 | ER ---
Nurse's Notes [facility] Name: Evin Saba Age: 84 yrs Sex: Male : 1940 Arrival Date: 07/06/2025 Time: 19:03 Bed 4 Private MD: Diagnosis: Pleural effusion, not elsewhere classified;Acute kidney failure, unspecified-ON CHRONIC;Hyperkalemia;Anemia, unspecified;Retention of urine, unspecified-PVR 1000 CC;Pneumonia due to other specified bacteria-LEFT MULTIFOCAL;Fall on same level, unspecified;Repeated falls;Traumatic subdural hemorrhage-RIGHT SUBACUTE, 5 MM;Chronic combined systolic (congestive) and diastolic (congestive) heart failure Presentation: 07/06 19:03 Chief complaint: EMS states: called out for generalized weakness, bedsore that is not bm8 improving with treatment, and urinary retention since last night. 19:03 Coronavirus screen: At this time, the client does not indicate any symptoms associated bm8 with coronavirus-19. Ebola Screen: Patient negative for fever greater than or equal to 101.5 degrees Fahrenheit, and additional compatible Ebola Virus Disease symptoms Patient denies exposure to infectious person. Patient denies travel to an Ebola-affected area in the 21 days before illness onset. No symptoms or risks identified at this time. Initial Sepsis Screen: Does the patient meet any 2 criteria? No. Patient's initial sepsis screen is negative. Does the patient have a suspected source of infection? No. Patient's initial sepsis screen is negative. Risk Assessment: Do you want to hurt yourself or someone else? Patient reports no desire to harm self or others. Onset of symptoms was July 05, 2025 at 17:00. 19:03 Method Of Arrival: EMS: [facility] bm8 19:03 Acuity: FELICIA 2 bm8 Triage Assessment: 19:03 General: Appears in no apparent distress. uncomfortable, Behavior is calm, cooperative, bm8 appropriate for age. 19:03 Pain: Complains of pain in back and left arm and left leg and right leg and palmar bm8 aspect of left forearm and left elbow and left tricep and left wrist and dorsal aspect of left forearm and left bicep Pain currently is 9 out of 10 on a pain scale. Quality of pain is described as aching, crampy. EENT: No deficits noted. No signs and/or symptoms were reported regarding the EENT system. Neuro: No deficits noted. Level of Consciousness is awake, alert, obeys commands, Oriented to person, place, time, situation, Appropriate for age. Cardiovascular: Denies chest pain, shortness of breath, Heart tones S1 S2 present Capillary refill is > 3 seconds is sluggish in bilateral fingers toes skin is cool and dry. Rhythm is sinus bradycardia. Cardiovascular: Edema is 3+ to waist, left upper thigh, left lower thigh, left knee, left midcalf, left ankle, left foot, left toes, left upper arm, left elbow, left forearm, left wrist, left hand, left fingers, right upper thigh, right lower thigh, right knee, right midcalf, right ankle, right foot and right toes. Respiratory: Airway is patent Trachea midline Respiratory effort is even, unlabored, Respiratory pattern is regular, symmetrical, Breath sounds are clear bilaterally. GI: No deficits noted. No signs and/or symptoms were reported involving the gastrointestinal system. : Reports inability to void. Derm: Skin is intact, Wound noted coccyx. Musculoskeletal: No signs and/or symptoms reported regarding the musculoskeletal system. Historical: - Allergies: 19:26 PENICILLINS; bm8 - PMHx: 19:26 Congestive heart failure; coronary atherosclerosis; Diabetes - NIDDM; Hypertension; bm8 - PSHx: 19:26 back; hip; Left; bm8 - Immunization history:: Adult Immunizations up to date. - Infectious Disease History:: Denies. - Family history:: not pertinent. - Social history:: Smoking status: Patient denies any tobacco usage or history of. Screenin:03 [facility] ED Fall Risk Assessment (Adult) History of falling in the last 3 months, bm8 including since admission Yes- physiologic fall (2 pts) Confusion or Disorientation No (0 pts) Intoxicated or Sedated No (0 pts) Impaired Gait Yes (1 pt) Mobility Assist Device Used Yes (1 pt) Altered Elimination Yes (1 pt) Score/Fall Risk Level 3 or more points = High Risk Oriented to surroundings, Maintained a safe environment, Educated pt \T\ family on fall prevention, incl call for assistance when getting out of bed, Assessed \T\ reinforced patient's understanding of fall precautions, Hourly rounding (assess needs \T\ fall precautionary measures) done, Used ambulatory aids as needed (educated on \T\ assisted with), Used gait belt as appropriate Implemented a Fall Risk Plan of Care. Abuse screen: Denies threats or abuse. Nutritional screening: No deficits noted. Tuberculosis screening: No symptoms or risk factors identified. Assessment: 20:03 Reassessment: Patient appears in no apparent distress at this time. No changes from [facility] previously documented assessment. Patient and/or family updated on plan of care and expected duration. Pain level reassessed. Patient is alert, oriented x 3, equal unlabored respirations, skin warm/dry/pink. Patient states symptoms have improved. 21:41 Reassessment: Patient appears in no apparent distress at this time. Patient and/or bm8 family updated on plan of care and expected duration. Pain level reassessed. Patient is alert, oriented x 3, equal unlabored respirations, skin warm/dry/pink. Patient states feeling better. Patient states symptoms have improved. 22:11 Reassessment: attempted to call report to [facility] was placed on hold for 10 mins. bm8 22:28 Reassessment: Patient appears in no apparent distress at this time. Patient and/or bm8 family updated on plan of care and expected duration. Pain level reassessed. Patient is alert, oriented x 3, equal unlabored respirations, skin warm/dry/pink. provided pt with turkey sandwhich and water per his request Patient states feeling better. Patient states symptoms have improved. Vital Signs: 19:03 BP 180 / 67; Pulse 51; Resp 17; Temp 97.9; Pulse Ox 90% on R/A; Weight 93 kg; Height 5 bm8 ft. 11 in. ; Pain 9/10; 20:03 BP 164 / 59; Pulse 51; Resp 17; Temp 97.9; Pulse Ox 100% on 2 lpm NC; Pain 8/10; bm8 21:41 BP 160 / 54; Pulse 50; Resp 14; Temp 97.9; Pulse Ox 98% on 2 lpm NC; Pain 5/10; bm8 22:28 BP 130 / 56; Pulse 47; Resp 16; Temp 97.9; Pulse Ox 98% on 2 lpm NC; Pain 5/10; bm8 19:03 Body Mass Index 28.60 (93.00 kg, 180.34 cm) bm8 19:03 Pain Scale: Adult bm8 20:03 Pain Scale: Adult bm8 21:41 Pain Scale: Adult bm8 22:28 Pain Scale: Adult bm8 Ant Coma Score: 19:22 Eye Response: spontaneous(4). Motor Response: obeys commands(6). Verbal Response: henny oriented(5). Total: 15. 20:03 Eye Response: spontaneous(4). Motor Response: obeys commands(6). Verbal Response: bm8 oriented(5). Total: 15. 21:41 Eye Response: spontaneous(4). Motor Response: obeys commands(6). Verbal Response: bm8 oriented(5). Total: 15. 22:28 Eye Response: spontaneous(4). Motor Response: obeys commands(6). Verbal Response: bm8 oriented(5). Total: 15. ED Course: 19:03 Arm band placed on left wrist. bm8 19:18 Patient arrived in ED. henny 19:18 Jose Manuel Falcon MD is Attending Physician. henny 19:24 Florian Zhao, RN is Primary Nurse. bm8 19:26 Triage completed. bm8 19:29 No provider procedures requiring assistance completed. Inserted saline lock: 20 gauge kd3 in right antecubital area, using aseptic technique. Blood collected. Flushed with 10 mL NS. 19:29 Lipase Sent. kd3 19:29 Basic Metabolic Panel Sent. kd3 19:29 CBC with Diff Sent. kd3 19:29 LFT's Sent. kd3 19:29 Magnesium Sent. kd3 19:29 NT PRO-BNP Sent. kd3 19:29 PT-INR Sent. kd3 19:29 Troponin HS Sent. kd3 19:50 EKG done, by ED staff, reviewed by Jose Manuel Falcon MD. ts3 20:03 Maurer cath inserted, using sterile technique, 18 Fr., by nj, balloon inflated, to bm8 gravity drainage, urine specimen collected. returned ene urine. Patient tolerated poorly. Oxygen administration via nasal cannula \T\ 2L/min Response to oxygen therapy: symptoms improved. 20:03 Patient has correct armband on for positive identification. Client placed on continuous bm8 cardiac and pulse oximetry monitoring. NIBP monitoring applied. school lunch monitor on. Pulse ox on. NIBP on. Door closed. Noise minimized. Warm blanket given. Head of bed elevated. 20:09 XRAY Chest (1 view) In Process Unspecified. EDMS 20:24 [facility] [place]. kmf 20:32 UPPER EXTREMITY VENOUS UNILATE In Process Unspecified. EDMS 20:39 Chest Abd Pelvis Wo Con In Process Unspecified. EDMS 20:39 Head C Spine Mpr Wo Con In Process Unspecified. EDMS 20:50 faxed pt clinical's. kmf 21:41 IV discontinued, intact, bleeding controlled, No redness/swelling at site. Pressure bm8 dressing applied, pt stated fit was very uncomfortable not being able to bend arms. 21:41 Provided Education on: need for transfer. bm8 21:43 Lab(s) recollected, by me, sent to lab. Inserted saline lock: 20 gauge in right bm8 forearm, using aseptic technique. Blood collected. Flushed with 10 mL NS. 22:28 Patient transferred, IV remains in place. bm8 Administered Medications: 20:04 Drug: Famotidine IVP 20 mg IVP once; dilute with 10 mL 0.9% NaCl; give over 2 minutes bm8 Route: IVP; Site: right antecubital; 21:42 Follow up: Response: No adverse reaction bm8 20:04 Drug: NS 0.9% IV 1000 ml IV at 1000 ml once; to be given as a bolus over 60 minutes bm8 Route: IV; Rate: 1000 ml; Site: right antecubital; 21:42 Follow up: Response: No adverse reaction; IV Status: Completed infusion bm8 21:05 Drug: Rocephin IV 1 grams IV at per protocol once; Given slow IV push per pharmacy bm8 instructions Route: IV; Rate: per protocol; Site: right antecubital; 21:42 Follow up: Response: No adverse reaction; IV Status: Completed infusion bm8 21:42 Drug: levofloxacin IVPB 500 mg 100 ml IVPB once over 60 mins Volume: 100 ml; Route: bm8 IVPB; Infused Over: 60 mins; Site: right forearm; 22:28 Follow up: Response: No adverse reaction; IV Status: Completed infusion bm8 21:42 Drug: Furosemide IVP 40 mg IVP once; give over 2 minutes Route: IVP; Site: right bm8 forearm; 22:27 Follow up: Response: No adverse reaction bm8 Medication: 21:41 VIS not applicable for this client. bm8 Outcome: 20:32 ER care complete, transfer ordered by MD. inman 22:28 Transferred by ground EMS to [facility] Transfer form completed. bm8 X-rays sent w/ patient. 22:28 Condition: stable 22:28 Instructed on the need for transfer, Demonstrated understanding of instructions, follow-up care, medications, 23:05 Patient left the ED. bm8 Signatures: Dispatcher [employer] EDDC Jose Manuel Falcon MD MD cha Doucette, Kyli, RN RN kd3 [place] [facility] Florian Zhao, RN RN bm8 Kimberly Ross 3
--- NOTE | 2025-07-06 20:32 | EDPHYS ---
Physician Documentation [facility] Name: Evin Saba Age: 84 yrs Sex: Male : 1940 Arrival Date: 07/06/2025 Time: 19:03 Bed 4 Private MD: ED Physician Jose Manuel Falcon HPI: 07/06 19:22 This 84 yrs old Male presents to ER via Unassigned with complaints of fall, henny weak , pale, left arm arm. 19:22 The patient or guardian complains of decreased range of motion, pain, swelling. The henny complaints affect the left bicep, dorsal aspect of left forearm, left wrist, left tricep, left elbow and palmar aspect of left forearm. Context: The problem was sustained at home. Onset: The symptoms/episode began/occurred 2 day(s) ago. Treatment prior to arrival includes: no previous treatment. The patient presents with urinary symptoms, unable to void. Historical: - Allergies: 19:26 PENICILLINS; bm8 - PMHx: 19:26 Congestive heart failure; coronary atherosclerosis; Diabetes - NIDDM; Hypertension; bm8 - PSHx: 19:26 back; hip; Left; bm8 - Immunization history:: Adult Immunizations up to date. - Infectious Disease History:: Denies. - Family history:: not pertinent. - Social history:: Smoking status: Patient denies any tobacco usage or history of. ROS: 19:22 Constitutional: Negative for fever, chills, and weight loss, Eyes: Negative for injury, henny pain, redness, and discharge, ENT: Negative for injury, pain, and discharge, Neck: Negative for injury, pain, and swelling, Cardiovascular: Negative for chest pain, palpitations, and edema, Respiratory: Negative for shortness of breath, cough, wheezing, and pleuritic chest pain, Back: Negative for injury and pain, : Negative for injury, bleeding, discharge, and swelling, MS/Extremity: Negative for injury and deformity, Skin: Negative for injury, rash, and discoloration, Psych: Negative for depression, anxiety, suicide ideation, homicidal ideation, and hallucinations, Allergy/Immunology: Negative for hives, rash, and allergies, Endocrine: Negative for neck swelling, polydipsia, polyuria, polyphagia, and marked weight changes, Hematologic/Lymphatic: Negative for swollen nodes, abnormal bleeding, and unusual bruising, 19:22 Abdomen/GI: Positive for abdominal pain, 19:22 Neuro: Positive for weakness, Exam: 19:22 Constitutional: This is a well developed, well nourished patient who is awake, alert, henny and in no acute distress. Head/Face: Normocephalic, atraumatic. Eyes: Pupils equal round and reactive to light, extra-ocular motions intact. Lids and lashes normal. Conjunctiva and sclera are non-icteric and not injected. Cornea within normal limits. Periorbital areas with no swelling, redness, or edema. ENT: Nares patent. No nasal discharge, no septal abnormalities noted. Tympanic membranes are normal and external auditory canals are clear. Oropharynx with no redness, swelling, or masses, exudates, or evidence of obstruction, uvula midline. Mucous membranes moist. Neck: Trachea midline, no thyromegaly or masses palpated, and no cervical lymphadenopathy. Supple, full range of motion without nuchal rigidity, or vertebral point tenderness. No Meningismus. Chest/axilla: Normal chest wall appearance and motion. Nontender with no deformity. No lesions are appreciated. Cardiovascular: Regular rate and rhythm with a normal S1 and S2. No gallops, murmurs, or rubs. Normal PMI, no JVD. No pulse deficits. 19:22 Respiratory: the patient does not display signs of respiratory distress, Respirations: no acute changes, labored breathing, is not present, Breath sounds: bronchial sounds, that are mild, are scattered, decreased breath sounds, that are mild, Respiratory rate: 22 19:22 Musculoskeletal/extremity: ROM: limited active range of motion, limited passive range of motion, in the right leg and left leg, Circulation is intact in all extremities. Sensation intact. Compartment Syndrome exam of affected extremity: is normal. Weight bearing: is unable to bear weight, DVT Exam: swelling, tenderness, of the left arm, 19:22 Neuro: Orientation: to person, place, Not oriented to time, situation, 20:32 ECG was reviewed by the Attending Physician. [facility] Vital Signs: 19:03 BP 180 / 67; Pulse 51; Resp 17; Temp 97.9; Pulse Ox 90% on R/A; Weight 93 kg; Height 5 bm8 ft. 11 in. ; Pain 9/10; 20:03 BP 164 / 59; Pulse 51; Resp 17; Temp 97.9; Pulse Ox 100% on 2 lpm NC; Pain 8/10; bm8 21:41 BP 160 / 54; Pulse 50; Resp 14; Temp 97.9; Pulse Ox 98% on 2 lpm NC; Pain 5/10; bm8 22:28 BP 130 / 56; Pulse 47; Resp 16; Temp 97.9; Pulse Ox 98% on 2 lpm NC; Pain 5/10; bm8 19:03 Body Mass Index 28.60 (93.00 kg, 180.34 cm) bm8 19:03 Pain Scale: Adult bm8 20:03 Pain Scale: Adult bm8 21:41 Pain Scale: Adult bm8 22:28 Pain Scale: Adult bm8 Ant Coma Score: 19:22 Eye Response: spontaneous(4). Motor Response: obeys commands(6). Verbal Response: henny oriented(5). Total: 15. 20:03 Eye Response: spontaneous(4). Motor Response: obeys commands(6). Verbal Response: bm8 oriented(5). Total: 15. 21:41 Eye Response: spontaneous(4). Motor Response: obeys commands(6). Verbal Response: bm8 oriented(5). Total: 15. 22:28 Eye Response: spontaneous(4). Motor Response: obeys commands(6). Verbal Response: bm8 oriented(5). Total: 15. MDM: 19:18 Medical Screening Exam initiated henny 19:18 Medical Screening Exam initiated henny 19:27 Differential diagnosis: closed fracture, contusion, tendonitis, nonspecific abdominal henny pain, UTI, urinary retention, prostatitis, urethritis. Differential diagnosis: closed head injury, contusion, sprain, strain. Data reviewed: vital signs, nurses notes, lab test result(s), EKG, radiologic studies, plain films. Consideration of Admission/Observation Patient was admitted/placed on observation. Escalation of care including admission/observation considered. I considered the following discharge prescriptions or medication management in the emergency department Medications were administered in the Emergency Department. See MAR. Independent interpretation of the following test(s) in the Emergency Department EKG: See my EKG interpretation above. Test considered but Not performed: Ultrasound no abd usg. Historians other than the Patient: EMS: ems well informed. Care significantly affected by the following chronic conditions: Diabetes, Hypertension, Congestive Heart Failure, Obesity. Counseling: I had a detailed discussion with the patient and/or guardian regarding the historical points, exam findings, and any diagnostic results supporting the discharge/admit diagnosis, the presence of at least one elevated blood pressure reading (>120/80) during this emergency department visit, lab results, radiology results, the need for further work-up and treatment in the hospital. 07/06 19:20 Order name: Basic Metabolic Panel; Complete Time: 20:22 [facility] 07/06 19:20 Order name: CBC with Diff; Complete Time: 20:22 [facility] 07/06 19:20 Order name: LFT's; Complete Time: 20:22 [facility] 07/06 19:20 Order name: Magnesium; Complete Time: 20:22 [facility] 07/06 19:20 Order name: NT PRO-BNP; Complete Time: 20:22 [facility] 07/06 19:20 Order name: PT-INR; Complete Time: 20:22 [facility] 07/06 19:20 Order name: Troponin HS; Complete Time: 20:22 [facility] 07/06 19:20 Order name: Lipase; Complete Time: 20:22 [facility] 07/06 19:20 Order name: UA Rfx Josue Cult if indicated; Complete Time: 20:22 [facility] 07/06 21:12 Order name: Blood Culture Adult (2) [facility] 07/06 21:12 Order name: Lactate w/ 2H reflex if indic. [facility] 07/06 19:20 Order name: XRAY Chest (1 view); Complete Time: 21:50 [facility] 07/06 19:40 Order name: UPPER EXTREMITY VENOUS UNILATE; Complete Time: 21:50 [facility] 07/06 19:43 Order name: Chest Abd Pelvis Wo Con; Complete Time: 21:50 [facility] 07/06 19:44 Order name: Head C Spine Mpr Wo Con; Complete Time: 21:50 [facility] 07/06 19:20 Order name: EKG; Complete Time: 19:20 [facility] 07/06 19:20 Order name: Cardiac monitoring; Complete Time: :28 [facility] 07/06 19:20 Order name: EKG - Nurse/Tech; Complete Time: 20:11 [facility] 07/06 19:20 Order name: IV Saline Lock; Complete Time: :28 [facility] 07/06 19:20 Order name: Labs collected and sent; Complete Time: [facility] 07/06 19:20 Order name: O2 Per Protocol; Complete Time: henny 07/06 19:20 Order name: O2 Sat Monitoring; Complete Time: henny 07/06 19:20 Order name: Maurer; Complete Time: 20:16 henny EC:32 Rate is 50 beats/min. Rhythm is regular. QRS [place] is Normal. NC interval is normal. QRS henny interval is normal. QT interval is normal. No Q waves. T waves are Normal. No ST changes noted. Clinical impression: Sinus bradycardia. Reviewed by me. Administered Medications: 20:04 Drug: Famotidine IVP 20 mg IVP once; dilute with 10 mL 0.9% NaCl; give over 2 minutes bm8 Route: IVP; Site: right antecubital; 21:42 Follow up: Response: No adverse reaction bm8 20:04 Drug: NS 0.9% IV 1000 ml IV at 1000 ml once; to be given as a bolus over 60 minutes bm8 Route: IV; Rate: 1000 ml; Site: right antecubital; 21:42 Follow up: Response: No adverse reaction; IV Status: Completed infusion bm8 21:05 Drug: Rocephin IV 1 grams IV at per protocol once; Given slow IV push per pharmacy bm8 instructions Route: IV; Rate: per protocol; Site: right antecubital; 21:42 Follow up: Response: No adverse reaction; IV Status: Completed infusion bm8 21:42 Drug: levofloxacin IVPB 500 mg 100 ml IVPB once over 60 mins Volume: 100 ml; Route: bm8 IVPB; Infused Over: 60 mins; Site: right forearm; 22:28 Follow up: Response: No adverse reaction; IV Status: Completed infusion bm8 21:42 Drug: Furosemide IVP 40 mg IVP once; give over 2 minutes Route: IVP; Site: right bm8 forearm; 22:27 Follow up: Response: No adverse reaction bm8 Disposition Summary: 07/06/25 20:32 Transfer Ordered Notes: Transfer Location: [facility] henny Reason: Higher level of care henny Condition: Fair henny Problem: new henny Symptoms: have improved henny Accepting Physician: TO DR ECHAVARRIA(07/06/25 23:05) bm8 Diagnosis - Pleural effusion, not elsewhere classified henny - Acute kidney failure, unspecified - ON CHRONIC henny - Hyperkalemia henny - Anemia, unspecified henny - Retention of urine, unspecified - PVR 1000 CC(07/06/25 20:45) henny - Pneumonia due to other specified bacteria - LEFT MULTIFOCAL henny - Fall on same level, unspecified henny - Repeated falls henny - Traumatic subdural hemorrhage - RIGHT SUBACUTE, 5 MM henny - Chronic combined systolic (congestive) and diastolic (congestive) heart failure henny Forms: - Medication Reconciliation Form henny - SBAR form henny Signatures: Dispatcher [employer] EDMS Jose Manuel Falcon MD MD cha McDonald, Brad, RN RN bm8 Corrections: (The following items were deleted from the chart) 19:23 19:23 Extremity Venous Uni Ltd+US.RAD.BRZ ordered. EDMS EDMS 19:44 19:20 Head C Spine Cap Wo Con+CT.RAD.BRZ ordered. EDMS EDMS 20:45 20:[address] ITALIA inman cha 20:45 20:32 Retention of urine, unspecified henny inman 21:13 20:[address] ITALIA inman cha 21:13 21:[address] ITALIA inman cha 23:05 21:[address] ITALIA inman bm8
[2025-07-06] MEDS ORDERED: CEFTRIAXONE 1000 MG/VIAL ONE (20:33)
--- NOTE | 2025-07-06 21:07 | RAD REPORT ---
EXAM: CT CHEST, ABDOMEN AND PELVIS WITHOUT CONTRAST CLINICAL INDICATION: Male, 84 years old. [facility] F[place], Weakness TECHNIQUE: CT chest, abdomen and pelvis was performed, without IV contrast, as per department protoco l. Axial, sagittal and coronal reconstructions were obtained. One or more of the following dose reduction techniques were used: Automated exposure control, adjustment of the mA and/or kV according to the patient size, and/or iterative reconstruction. Unless otherwise specified, incidental findings do not require dedicated imaging follow-up. COMPARISON: 06/21/2025 FINDINGS: The lack of intravenous contrast limits the sensitivity of this exam for evaluation of solid visceral organs, vascular structures, and retroperitoneum. Additionally, beam hardening artifact related to patient arm positioning, as well as streak artifact related to lumbar, and left hip hardware as well as right flank pain pump, also limiting evaluation Chest: LOWER NECK/CHEST WALL: Visualized thyroid gland and soft tissues are normal. LUNGS AND AIRWAYS: Progressive consolidative opacities in the left lung, now with complete opacificat ion of the left lower lobe, and additional opacification of the central and lingular left upper lobe. PLEURA: Small to moderate left pleural effusion, stable. Trace right pleural effusion, stable. No pne umothorax. Hemidiaphragms are normally positioned. MEDIASTINUM AND LYMPH NODES: No mediastinal mass or fluid collection. Normal size mediastinal, hilar, and axillary lymph nodes. THORACIC AORTA: Normal caliber and configuration. PULMONARY ARTERIES: Normal caliber. HEART: Unremarkable. Abdomen/Pelvis LIVER: Normal in size and contour. No focal lesion. GALLBLADDER/BILE DUCTS: Status post cholecystectomy. PANCREAS: No mass, ductal dilation, or katiana-pancreatic fluid. SPLEEN: Normal size. No focal lesion. ADRENALS: Normal; no mass. KIDNEYS AND URETERS: Normal size and contour. No hydronephrosis. GASTROINTESTINAL TRACT: Stomach is non-dilated. Small bowel has normal course and caliber. No colonic wall thickening or pericolonic inflammatory changes. PERITONEUM: Mild pelvic free fluid, progressive. LYMPH NODES: No lymphadenopathy. ABDOMINAL AORTA AND OTHER VESSELS: Normal caliber aorta and IVC. URINARY BLADDER: Decompressed with Maurer catheter in place. Apparent diffuse wall thickening, not wel l evaluated REPRODUCTIVE ORGANS: No pathologic process. MUSCULOSKELETAL: No acute or suspicious osseous abnormality. Stable sequelae of posterior approach de compression and fusion at L2-3 ADDITIONAL FINDINGS: Diffuse body wall edema. Left gluteal skin irregularity and possible ulceration with no deeper soft tissue gas appreciated. IMPRESSION: Progressive consolidative opacities in the left lung as above, concerning for pneumonia. Underlying m ass again cannot be excluded. Follow-up CT imaging after resolution of any acute symptoms would be recommended. Stable bilateral pleural effusions. Mildly progressive free pelvic ascites. Diffuse body wall edema again seen. Findings may relate to fl uid overload. Other incidental findings as above, including probable left gluteal region skin ulceration without ev idence of deeper soft tissue gas.
--- NOTE | 2025-07-06 21:14 | RAD REPORT ---
EXAM: CT brain without contrast HISTORY: Dizziness;Trauma COMPARISON: 06/21/2025 TECHNIQUE: Multiple contiguous axial images were obtained and a CT of the brain without contrast. Sag ittal and coronal reformats were performed. FINDINGS: No evidence of hydrocephalus, or intracranial hemorrhage. Right frontoparietal convexity low density extra-axial collection measuring 5 mm has developed since the prior exam. The brain is normal in morphology. The calvarium is intact. Resolving right parietal scalp hematoma. The visualized paranasal sinuses an d mastoid air cells are essentially clear. IMPRESSION: Developing low density in the right frontoparietal convexity extra-axial collection measuring 5 mm in thickness, suggestive of subacute subdural hemorrhage. THIS REPORT CONTAINS FINDINGS THAT MAY BE CRITICAL TO PATIENT CARE. The findings were verbally commun icated via telephone to Jose Manuel Falcon MD on 07/06/2025 9:11 PM. EXAM: CT of the cervical spine without contrast HISTORY: Dizziness;Trauma COMPARISON: None TECHNIQUE: Multiple contiguous axial images were obtained in a CT of the cervical spine without contr ast. Sagittal and coronal reformats were performed. FINDINGS: The vertebral bodies demonstrate normal height and alignment. No evidence of acute fracture or subluxation.. No degenerative changes are present. No prevertebral soft tissue swelling is seen. The posterior facets are well aligned. Normal alignment of the skull base with the cervical spine is seen. The lung apices are unremarkable. IMPRESSION: No evidence of acute osseous abnormality of the cervical spine. No significant interval change.
--- NOTE | 2025-07-06 21:23 | RAD REPORT ---
EXAMINATION: UPPER EXTREMITY VENOUS UNILATE CLINICAL INDICATION: Left arm pain TECHNIQUE: Complete bilateral duplex sonography of the left upper extremity veins was performed. The examination included compression for vein patency, color Doppler imaging and flow augmentation in response to distal compression of the internal jugular,, subclavian, axillary, brachial, radial, ulna r, cephalic and basilic veins. .Grayscale, color and spectral analysis performed on all vessels COMPARISON: No prior exam. FINDINGS: The internal jugular, subclavian, axillary, brachial, basilic, cephalic, radial and ulnar veins are g enerally compressible and demonstrate augmentation. Color Doppler demonstrates good flow. IMPRESSION: No evidence of venous thrombus left arm
--- NOTE | 2025-07-06 21:26 | RAD REPORT ---
Procedure: Chest Single View HISTORY: Cough COMPARISON: March 2025 FINDINGS: Mild progression in left mid and lower consolidation with volume loss. [id number] pleural effusion The heart is mildly to moderately enlarged.
[2025-07-06] MEDS ORDERED: Levofloxacin500mg IV 500 MG/100 ML BAG IV ONE (21:35)
[2025-07-06] MEDS ORDERED: FUROSEMIDE 40 MG/4 ML VIAL ONE (21:35)
== END 2025-07-06 23:05 ==
LOC: ER 19:03
DX: S06.5X0A Traumatic subdural hemorrhage without loss of consciousness, initial encounter (principal); J15.8 Pneumonia due to other specified bacteria; J90 Pleural effusion, not elsewhere classified; E11.22 Type 2 diabetes mellitus with diabetic chronic kidney disease; I13.0 Hypertensive heart and chronic kidney disease with heart failure and stage 1 through stage 4 chronic kidney disease, or unspecified chronic kidney disease; N18.9 Chronic kidney disease, unspecified; I50.42 Chronic combined systolic (congestive) and diastolic (congestive) heart failure; N17.9 Acute kidney failure, unspecified; E87.5 Hyperkalemia; D64.9 Anemia, unspecified; R33.9 Retention of urine, unspecified; W18.30XA Fall on same level, unspecified, initial encounter; R29.6 Repeated falls
CPT/HCPCS: 93005; 87040 ×2; 85025; 81001; 80048; 36415; 83735; 85610; 80076; 83605; 84484; 83690; 83880; 70450; 71250; 72125; 74176; 71045; 93971; 51702; 99285; J1938; J7030; J0696